=== PATIENT | male | born 1960 | race Two or more races ===

== ENCOUNTER 2016-06-09 03:28 | Emergency (ER) | payer MEDICAID ==
--- NOTE | 2016-06-09 03:49 | ED Physician Chart ---
Chief Complaint/HPI - Patient Information Date Seen:: 06/09/16 Time Seen:: 03:45 Chief Complaint:: Chronic low back pain for about 10 years. History of Present Illness:: Pt has h/o chronic pain syndrome with chronic low back pain. Pt has been followed at [facility] with Dr. Noland with next appointment on 06/11/16. Pt states that his low back pain has been worse over past 2 days, but pt decides not to contact his Pain Clinic. No recent back injury. No weakness or numbness. No urinary or fecal incontinence or retention. Pt states that he has been out of [place] for 3 days. Pt states that his last use of any analgesic was Motrin yesterday morning. Pt has not had any pain medication today. Pt is here for pain control. Allergies:: Allergies Allergy/AdvReac Type Severity Reaction Status Date / Time gabapentin Allergy Verified 06/09/16 03:45 ketorolac [From Toradol] Allergy Verified 06/09/16 03:45 morphine Allergy Verified 06/09/16 03:45 promethazine Allergy Verified 06/09/16 03:45 tramadol Allergy Verified 06/09/16 03:45 Vitals:: Vital Signs - 8 hr 06/09/16 03:30 Temp 97.2 F HR 82 RR 18 BP 130/82 O2 Sat % 97 Historian:: Patient Family MD/PCP:: Dr. Shannon. LMP:: N/A Review:: Nurse's Note Reviewed Review of Systems - Review of Systems General/Constitutional: No fever, No chills, No weight loss, No weakness, No diaphoresis, No edema, No loss of appetite Skin: No skin lesions, No rash, No bruising Head: No headache, No light-headedness Eyes: No loss of vision, No pain, No diplopia ENT: No earache, No nasal drainage, No sore throat, No tinnitus Neck: No neck pain, No swelling, No thyromegaly, No stiffness, No mass noted Cardio Vascular: No chest pain, No palpitations, No PND, No orthopnea, No edema Pulmonary: No SOB, No cough, No sputum, No wheezing GI: No nausea, No vomiting, No diarrhea, No pain, No melena, No hematochezia, No constipation, No hematemesis G/U: No dysuria, No frequency, No hematuria Musculoskeletal: Back pain (chronic, see HPI.) Endocrine: No polyuria, No polydipsia Psychiatric: Prior psych history, No depression, No anxiety, No suicidal ideation, No homicidal ideation, No auditory hallucination Hematopoietic: No bruising, No lymphadenopathy Allergic/Immuno: No urticaria, No angioedema Neurological: No syncope, No focal symptoms, No weakness, No paresthesia, No headache, No seizure, No dizziness, No confusion, No vertigo Past Medical History - Past Medical History Past Medical History: HTN, Dyslipidemia, PUD/GERD Family History: Diabetes Melitus (mother), HTN (mother) Social History: Smoker (occasional. Pt has been informed about health risks associated with chronic tobacco use and has been advised to quit. Pt has been encouraged to enroll in a smoking cessation program. Pt acknowledges understanding.), No Alcohol, No Drug Use, , Other (lives with his .) Employment:: on disability. Surgical History: Appendectomy (), Cholecystectomy () Psychiatricy History: Depression Medication: Reviewed Family Medical History - Family Member Mother History Unknown: Yes Ethnicity: Living Status: Hx Family Cancer: No Hx Family Coronary Artery Disease: No Hx Family Congestive Heart Failure: No Hx Family Hypertension: Yes Hx Family Stroke: No Hx Family Diabetes: Yes Hx Family Seizures: No Hx Family Dementia: Yes Hx Family AIDS: No Hx Family HIV: No Hx Family COPD: No Hx Family Hepatitis: No Hx Family Psychiatric Problems: No Hx Family Tuberculosis: No Father History Unknown: Yes Ethnicity: Living Status: Hx Family Cancer: Yes Hx Family Hypertension: Yes Physical Exam - Physical Examination General/Constitutional: Awake, Well-developed, well-nourished, Alert, No distress, GCS 15, Non-toxic appearing, Ambulatory Other Gen/Cons comments:: Breathes comfortably, speaks clearly, and interacts appropriately. Head: Atraumatic Eyes: Lids, conjuctiva normal, PERRL, EOMI Skin: Well hydrated, No lymphadenopathy Neck: Nontender, Full ROM w/o pain, No nuchal rigidity, No stridor Respiratory: Nl effort/Exclusion, Clear to Auscultation, No Wheeze/Rhonchi/Rales Cardio Vascular: RRR, No murmur, gallop, rubs, NL S1 S2 GI: No tenderness/rebounding/guarding, No organomegaly, No hernia, Normal BS's, Nondistended, No mass/bruits, No McBurney tenderness Other GI comments:: Abdomen is soft. : No CVA tenderness Extremities: No tenderness or effusion, Full ROM, normal strength in all extremities, No edema, Normal digits & nails Neuro/Psych: Alert/oriented (oriented x 3), DTR's symmetric, Normal sensory exam , Normal motor strength, Mood normal, No focal deficits Other Neuro/Psych comments:: Negative SLR's bilaterally. Other Misc comments:: Vague discomfort at mid lower lumbar region. No open wound, erythema, swelling or gross deformity. ED Septic Shock - . Is Septic Shock (SBP<90, OR Lactate>4 mmol\L) present?: No - <6hrs of presentation: Vital Signs: Vital Signs - 8 hr 06/09/16 03:30 Temp 97.2 F HR 82 RR 18 BP 130/82 O2 Sat % 97 Reassessment (Disposition) - Reassessment Reassessment:: 0510 Pt feels much better. Pt now can sit up and get up from bed comfortably. Pt requests to go home now and does not want further observation/management in hospital. Aftercare instructions given. Reassessment Condition:: Improved - Diagnosis Diagnosis:: Chronic pain syndrome with chronic low back pain, stable and improved. - Aftercare/Follow up Instructions Aftercare/Follow-Up Instructions:: Refer to Discharge Instructions Notes:: Back hygiene instructions given. May take Tylenol 500 mg tab one tab po q6h prn pain. Pt has been cautioned not to take other acetaminophen containing medications such as [place], etc. when taking Tylenol. F/U with Dr. Noland at [facility] and PCP Dr. Shannon in 1-2 days for recheck. Return to ER immediately if condition worsens or if any further questions/ problems. Medication Prescribed:: None - Patient Disposition Discharge/Transfer:: Home Time:: 05:20 Condition at Disposition:: Stable, Improved
== END 2016-06-09 05:21 | disposition home or self-care (01) ==
LOC: ER 03:28
DX: G89.4 Chronic pain syndrome (principal); M54.5 Low back pain; I10 Essential (primary) hypertension; E78.5 Hyperlipidemia, unspecified; F17.200 Nicotine dependence, unspecified, uncomplicated; Z88.5 Allergy status to narcotic agent; Z88.6 Allergy status to analgesic agent; Z88.8 Allergy status to other drugs, medicaments and biological substances
CPT/HCPCS: Z7502; Z7610

== ENCOUNTER 2017-04-04 14:56 | Emergency (ER) | payer MEDICAID, OTHER ==
[2017-04-04] MEDS ORDERED: HYDROmorphone 1 mg/mL 1mL Syr IM STA (15:07)
[2017-04-04] MEDS ORDERED: HYDROmorphone 1 mg/mL 1mL Syr ONE (15:15)
--- NOTE | 2017-04-04 15:51 | ED Physician Chart ---
ED Chief Complaint/HPI - Patient Information Date Seen:: 04/04/17 Time Seen:: 15:05 Chief Complaint:: Back Pain History of Present Illness:: onset x 7 days of intermittent, MS-type LBP; pt denies recent trauma; Hx of Chronic Back Pain and Sciatica; pt denies LOC, ALOC, AMS, H/As, neck pain, C/P, SOB, Abd/Flank Pain, A/N/V/D/C, fever, chills, paresthesias, weakness, dizziness , visual or gait changes, vertigo, or urinary s/s Allergies:: Allergies Allergy/AdvReac Type Severity Reaction Status Date / Time gabapentin Allergy Verified 06/09/16 03:45 ketorolac [From Toradol] Allergy Verified 06/09/16 03:45 morphine Allergy Verified 06/09/16 03:45 promethazine Allergy Verified 06/09/16 03:45 tramadol Allergy Verified 06/09/16 03:45 Vitals:: Vital Signs - 8 hr 04/04/17 04/04/17 15:06 15:39 Temp 99.1 F 99.0 F HR 85 86 RR 16 16 BP 136/79 154/85 O2 Sat % 98 98 Historian:: Patient Review:: Nurse's Note Reviewed ED Review of Systems - Review of Systems General/Constitutional: No fever, No chills, No weight loss, No weakness, No diaphoresis, No edema, No loss of appetite Skin: No skin lesions, No rash, No bruising Head: No headache, No light-headedness Eyes: No loss of vision, No pain, No diplopia ENT: No earache, No nasal drainage, No sore throat, No tinnitus Neck: No neck pain, No swelling, No thyromegaly, No stiffness, No mass noted Cardio Vascular: No chest pain, No palpitations, No PND, No orthopnea, No edema Pulmonary: No SOB, No cough, No sputum, No wheezing GI: No nausea, No vomiting, No diarrhea, No pain, No melena, No hematochezia, No constipation, No hematemesis G/U: No dysuria, No frequency, No hematuria Musculoskeletal: Bone or joint pain, Back pain, Muscle pain Endocrine: No polyuria, No polydipsia Psychiatric: No prior psych history, No depression, No anxiety, No suicidal ideation Hematopoietic: No bruising, No lymphadenopathy Allergic/Immuno: No urticaria, No angioedema Neurological: No syncope, No focal symptoms, No weakness, No paresthesia, No headache, No seizure, No dizziness, No confusion, No vertigo ED Past Medical History - Past Medical History Obtainable: Yes Past Medical History: Arthritis, Other (Sciatica; DDD) Family History: Cancer Social History: Smoker, Alcohol, No Drug Use, Single Surgical History: None Psychiatricy History: None Medication: Reviewed Family Medical History - Family Member Mother History Unknown: Yes Ethnicity: Living Status: Hx Family Cancer: No Hx Family Coronary Artery Disease: No Hx Family Congestive Heart Failure: No Hx Family Hypertension: Yes Hx Family Stroke: No Hx Family Diabetes: Yes Hx Family Seizures: No Hx Family Dementia: Yes Hx Family AIDS: No Hx Family HIV: No Hx Family COPD: No Hx Family Hepatitis: No Hx Family Psychiatric Problems: No Hx Family Tuberculosis: No Father History Unknown: Yes Ethnicity: Living Status: Hx Family Cancer: Yes Hx Family Hypertension: Yes ED Physical Exam - Physical Examination General/Constitutional: Awake, Well-developed, well-nourished, Alert, No distress, GCS 15, Non-toxic appearing, Ambulatory Head: Atraumatic Eyes: Lids, conjuctiva normal, PERRL, EOMI Skin: Nl inspection, No rash, No skin lesions, No ecchymosis, Well hydrated, No lymphadenopathy ENMT: External ears, nose nl, Nasal exam nl, Lips, teeth, gums nl Neck: Nontender, Full ROM w/o pain, No JVD, No nuchal rigidity, No bruit, No mass, No stridor Other Neck comments:: Supple; no cervical tenderness; no meningeal signs; no bruits Respiratory: Nl effort/Exclusion, Clear to Auscultation, No Wheeze/Rhonchi/Rales Cardio Vascular: RRR, No murmur, gallop, rubs, NL S1 S2, Carotid/Femoral/Distal pulses equal bilaterally GI: No tenderness/rebounding/guarding, No organomegaly, No hernia, Normal BS's, Nondistended, No mass/bruits, No McBurney tenderness, Rectum exam nl Other GI comments:: no pulsatile masses : No CVA tenderness Extremities: No tenderness or effusion, Full ROM, normal strength in all extremities, No edema, Normal digits & nails Neuro/Psych: Alert/oriented, DTR's symmetric, Normal sensory exam, Normal motor strength, Judgement/insight normal, Mood normal, Normal gait, No focal deficits Misc: Normal back, No paraspinal tenderness Other Misc comments:: Full Active ROMs of T-L-S Regions with mild paravertebral soft tissue tenderness ; no loss of ROMs; DTRs: 2+ bilaterally; Gait: WNL; good motor, tendon, and sensory functions; good NV functions; no cellulitis; no septic joints; no FBs ED Labs/Radiology/EKG Results - Radiology Results Comments:: X-rays: deferred by pt ED Septic Shock - . Is Septic Shock (SBP<90, OR Lactate>4 mmol\L) present?: No - <6hrs of presentation: Vital Signs: Vital Signs - 8 hr 04/04/17 04/04/17 15:06 15:39 Temp 99.1 F 99.0 F HR 85 86 RR 16 16 BP 136/79 154/85 O2 Sat % 98 98 ED Reassessment (Disposition) - Reassessment Reassessment:: pt is asymptomatic upon discharge Reassessment Condition:: Improved - Diagnosis Diagnosis:: Dx: Back Pain; Sciatica; T-L-S Strain; Sprains and Strains - Aftercare/Follow up Instructions Aftercare/Follow-Up Instructions:: Counseled pt regarding lab results/diagnosis & need follow up, Refer to Discharge Instructions, Counseled pt & family regarding lab results/diagnosis & need follow up - Patient Disposition Discharge/Transfer:: Home Condition at Disposition:: Stable, Improved (RTER prn if existing s/s reoccur and/or get worse and/or any other new s/s occur; ACIs given for all above Dx; Refer to Spinal Specialist/Neurologist/Orthopedist JUAN; F/U with PMD in one day or prn; RTER prn if concerned) ED Discharge Plan - Patient Disposition Instructions: Sciatica Additional Instructions: Pls follow up with PMD in 1-2 days.
== END 2017-04-04 15:55 | disposition home or self-care (01) ==
LOC: ER 14:56
DX: S33.9XXA Sprain of unspecified parts of lumbar spine and pelvis, initial encounter (principal); S23.9XXA Sprain of unspecified parts of thorax, initial encounter; X58.XXXA Exposure to other specified factors, initial encounter; Y93.9 Activity, unspecified; Y92.89 Other specified places as the place of occurrence of the external cause; Y99.8 Other external cause status
CPT/HCPCS: J1170; Z7502

== ENCOUNTER 2017-04-16 13:10 | Emergency (ER) | payer MEDICAID, OTHER ==
--- NOTE | 2017-04-16 13:46 | ED Physician Chart ---
ED Chief Complaint/HPI - Patient Information Date Seen:: 04/16/17 Time Seen:: 13:30 Chief Complaint:: back pain and leg pain History of Present Illness:: Patient was walking to the hospital because of dizziness, back pain and leg pain. He apparently got within about half a mile a Hospital and then called an ambulance. Patient states he was dizzy this morning which is not unusual for him because he has chronic vertigo. Patient vomited twice and had diarrhea once this morning. He ran out of his prescription for Percocet and Anderson 3 days ago; he has been taking these 2 medications for the last 3-[address] Keyur Shannon was the patient's physician but the patient moved to [place] but now has moved back to [place] and has appointment with Dr. Shannon for about May 08. Allergies:: Allergies Allergy/AdvReac Type Severity Reaction Status Date / Time gabapentin Allergy Verified 06/09/16 03:45 ketorolac [From Toradol] Allergy Verified 06/09/16 03:45 morphine Allergy Verified 06/09/16 03:45 promethazine Allergy Verified 06/09/16 03:45 tramadol Allergy Verified 06/09/16 03:45 Historian:: Patient, EMS Review:: Nurse's Note Reviewed ED Review of Systems - Review of Systems General/Constitutional: No fever, No chills Skin: No skin lesions Head: No headache Eyes: No loss of vision ENT: No earache Neck: No neck pain Cardio Vascular: No chest pain, No palpitations Pulmonary: No SOB, No cough GI: Nausea, Vomiting, Diarrhea Musculoskeletal: Bone or joint pain, Back pain, Muscle pain Endocrine: No polyuria, No polydipsia ED Past Medical History - Past Medical History Past Medical History: HTN, Dyslipidemia, Other (chronic vertigo; sciatica) Family History: Diabetes Melitus, HTN Social History: Smoker, Alcohol (6), Other (smokes one pack of cigarettes a days and drinks alcohol occasionally) Surgical History: Appendectomy, Cholecystectomy Psychiatricy History: Other (anxiety) Medication: Reviewed Family Medical History - Family Member Mother History Unknown: Yes Ethnicity: Living Status: Hx Family Cancer: No Hx Family Coronary Artery Disease: No Hx Family Congestive Heart Failure: No Hx Family Hypertension: Yes Hx Family Stroke: No Hx Family Diabetes: Yes Hx Family Seizures: No Hx Family Dementia: Yes Hx Family AIDS: No Hx Family HIV: No Hx Family COPD: No Hx Family Hepatitis: No Hx Family Psychiatric Problems: No Hx Family Tuberculosis: No Father History Unknown: Yes Ethnicity: Living Status: Hx Family Cancer: Yes Hx Family Hypertension: Yes ED Physical Exam - Physical Examination General/Constitutional: Awake, Well-developed, well-nourished, Alert, No distress Head: Atraumatic Eyes: Lids, conjuctiva normal, PERRL Skin: Nl inspection, No rash, No skin lesions, No ecchymosis ENMT: External ears, nose nl, Nasal exam nl Other ENMT comments:: 09/09 periodontal disease Neck: No nuchal rigidity Respiratory: Nl effort/Exclusion, Clear to Auscultation Cardio Vascular: RRR, No murmur, gallop, rubs, NL S1 S2 GI: No tenderness/rebounding/guarding, No organomegaly, No hernia, Nondistended , No mass/bruits : No CVA tenderness Extremities: No tenderness or effusion Neuro/Psych: No focal deficits Other Neuro/Psych comments:: Tremor left hand Misc: No paraspinal tenderness ED Labs/Radiology/EKG Results - Lab Results Results: Laboratory Results - last 24 hr 04/16/17 04/16/17 13:45 13:45 WBC 7.4 RBC 5.09 Hgb 14.3 Hct 42.4 MCV 83.3 MCH 28.1 MCHC Differential 33.7 RDW 16.9 Plt Count 169 MPV 8.8 Neutrophils % 69.0 Lymphocytes % 22.5 Monocytes % 5.6 Eosinophils % 2.9 Basophils % 0.0 Sodium 137 Potassium 3.6 Chloride 106 Carbon Dioxide 27.6 Anion Gap 7.0 BUN 19 Creatinine 1.0 Est GFR ( Amer) > 60.0 Est GFR (Non-Af Amer) > 60.0 BUN/Creatinine Ratio 19.0 Glucose 128 H Calcium 8.7 Magnesium 2.0 Total Bilirubin 0.3 AST 12 L ALT 9 Alkaline Phosphatase 75 Total Protein 6.5 Albumin 3.9 L Globulin 2.6 Albumin/Globulin Ratio 1.5 ED Assessment - Assessment General Assessment: talked to Dr. Keyur Shannon who said he had not prescribed Percocet for the patient in the past. He suggested prescribing a few norco. Patient may be having some narcotic withdrawal symptoms. ED Septic Shock - . Is Septic Shock (SBP<90, OR Lactate>4 mmol\L) present?: No ED Reassessment (Disposition) - Reassessment Reassessment Condition:: Improved - Diagnosis Diagnosis:: Musculoskeletal back pain; gastroenteritis; anxiety; medication withdrawal - Aftercare/Follow up Instructions Aftercare/Follow-Up Instructions:: Refer to Discharge Instructions - Patient Disposition Discharge/Transfer:: Home Condition at Disposition:: Stable, Improved
[2017-04-16 13:54] LABS: % EOSINOPHILS 2.9 % (0.0-5.0); % LYMPHOCYTES 22.5 % (20.0-50.0); % MONOCYTES 5.6 % (2.0-10.0); EOSINOPHILE ABSOLUTE 0.2 Th/cmm (0.1-0.4); HEMATOCRIT 42.4 % (41.0-60); HEMOGLOBIN 14.3 gm/dL (12-16); LYMPHOCYTE ABSOLUTE 1.7 Th/cmm (1.5-3.0); MEAN CELL VOLUME 83.3 fl (80-99); MEAN CORPUSCULAR HEMOGLOBIN 28.1 pg (26.0-30.0); MEAN CORPUSCULAR HGB CONC 33.7 pg (28.0-36.0); MEAN PLATELET VOLUME 8.8 fl; MONOCYTE ABSOLUTE 0.4 Th/cmm (0.3-1.0); NEUTROPHILE ABSOLUTE 5.1 Th/cmm (1.8-8.0); PLATELET COUNT 169 Th/cmm (150-400); RED BLOOD COUNT 5.09 Mil/cmm (4.30-5.70); RED CELL DISTRIBUTION WIDTH 16.9 % (11.5-20.0); WHITE BLOOD COUNT 7.4 Th/cmm (4.8-10.8)
[2017-04-16 14:11] LABS: ALB/GLOB RATIO 1.5 (1.0-1.8); ALBUMIN 3.9 gm/dL (4.2-5.5); ALKALINE PHOSPHATASE 75 U/L (34-104); BILIRUBIN,TOTAL 0.3 mg/dL (0.3-1.0); BUN - UREA NITROGEN 19 mg/dL (7-25); CALCIUM SERUM 8.7 mg/dL (8.6-10.3); CARBON DIOXIDE 27.6 mEq/L (21.0-31.0); CHLORIDE 106 mEq/L (98-107); GFR AFRICAN-AMERICAN > 60.0 ml/min (>90); GFR NON AFRICAN-AMERICAN > 60.0 ml/min; GLUCOSE 128 mg/dL (70-105); POTASSIUM SERUM 3.6 mEq/L (3.5-5.1); SGOT 12 U/L (13-39); SGPT/ALT 9 U/L (7-52); SODIUM SERUM 137 mEq/L (136-145); TOTAL PROTEIN,SERUM 6.5 gm/dL (6.0-8.3)
== END 2017-04-16 15:50 | disposition home or self-care (01) ==
LOC: ER 13:10
DX: M54.9 Dorsalgia, unspecified (principal); K52.9 Noninfective gastroenteritis and colitis, unspecified; F41.9 Anxiety disorder, unspecified; I10 Essential (primary) hypertension; E78.5 Hyperlipidemia, unspecified; F17.210 Nicotine dependence, cigarettes, uncomplicated; Z90.49 Acquired absence of other specified parts of digestive tract; Z88.5 Allergy status to narcotic agent; Z88.8 Allergy status to other drugs, medicaments and biological substances
CPT/HCPCS: 36415-UA; 80053-TC; 83735-TC; 85025-TC; Z7502

== ENCOUNTER 2017-04-18 10:32 | Emergency (ER) | payer MEDICAID ==
--- NOTE | 2017-04-18 11:31 | ED Physician Chart ---
ED Chief Complaint/HPI - Patient Information Date Seen:: 04/18/17 Time Seen:: 11:31 Chief Complaint:: ACUTE EXACERBATION OF CHRONIC LOW BACK PAIN History of Present Illness:: THIS 56 YEAR OLD MALE HAS BEEN HAVING INTERMENT EPISODES OF SEVERE LOW BACK PAIN FOR PAST 5 YEARS. HAD AN MRI 1 YEAR AGO WITH NO ACUTE ABNORMALITIES FOUND. PAIN CAME ON 3 DAYS AGO WHEN HE AWOKE IN THE AM. PAIN IS RATED 10/ 10 BY THIS PATIENT AND IS MADE WORSE BY WALKING. NO AVIATING FACTORS. PAIN RADIATES FROM THE MID TO LOW BACK DOWN INTO THE RT LOWER EXTREMITY ALL THE WAY DOWN TO THE GREAT TOE. THIS IS THE PATIENTS TYPICAL PAIN. PAIN IS ACCOMPANIED BY NAUSEA AND VERTIGO WHICH USUALLY ACCOMPANIES THE PAIN. NO VOMITING OR ABDOMINAL PAIN. NO FEVER, CHILLS OR DIAPHORESIS. NEAR SYNCOPAL EPISODE DUE TO THE PAIN THIS AM AND PT CALLED 911 TO BRING HIM TO THE ED. HE DENIES ANY UINARY OR BOWEL INCONTINENCE. NO URINARY RETENTION. Allergies:: Allergies Allergy/AdvReac Type Severity Reaction Status Date / Time aspirin Allergy Verified 04/16/17 13:43 gabapentin Allergy Verified 06/09/16 03:45 ketorolac [From Toradol] Allergy Verified 06/09/16 03:45 morphine Allergy Verified 06/09/16 03:45 promethazine Allergy Verified 06/09/16 03:45 tramadol Allergy Verified 06/09/16 03:45 Vitals:: Vital Signs - 8 hr 04/18/17 10:45 Temp 99.2 F HR 96 RR 15 BP 109/62 O2 Sat % 98 ED Review of Systems - Review of Systems General/Constitutional: No fever, No chills, No weakness, No diaphoresis, No edema, No loss of appetite Skin: No skin lesions, No rash, No bruising Head: No headache, No light-headedness Eyes: No loss of vision, No pain, No diplopia ENT: No earache, No sore throat, No tinnitus Neck: No neck pain, No stiffness, No mass noted Cardio Vascular: No chest pain, No orthopnea, No edema Pulmonary: No SOB, No cough, No wheezing GI: Nausea, No vomiting, No diarrhea, No pain, No hematemesis, Other (POSITIVE FLATUS) G/U: No dysuria, No frequency, No hematuria Musculoskeletal: Back pain, No muscle pain Psychiatric: Prior psych history, Depression, Anxiety, No suicidal ideation Hematopoietic: No bruising, No lymphadenopathy Allergic/Immuno: No urticaria, No angioedema Neurological: No weakness, No paresthesia, No headache, No seizure, No confusion , Vertigo Other: NEAR SYNCOPE WITHOUT LOC. ED Past Medical History - Past Medical History Past Medical History: HTN, Dyslipidemia, Other (denies diabetes.) Social History: Smoker (smokes 1 pack per day of cigarettes. Occasional alcohol. Denies illicit drug use.), Single, Lives Alone Employment:: Not currently employed. Patient has a history of cholecystectomy and appendectomy. Surgical History: Appendectomy, Cholecystectomy Psychiatricy History: Other (anxiety.) Medication: Reviewed Family Medical History - Family Member Mother History Unknown: Yes Ethnicity: Living Status: Hx Family Cancer: No Hx Family Coronary Artery Disease: No Hx Family Congestive Heart Failure: No Hx Family Hypertension: Yes Hx Family Stroke: No Hx Family Diabetes: Yes Hx Family Seizures: No Hx Family Dementia: Yes Hx Family AIDS: No Hx Family HIV: No Hx Family COPD: No Hx Family Hepatitis: No Hx Family Psychiatric Problems: No Hx Family Tuberculosis: No Father History Unknown: Yes Ethnicity: Living Status: Hx Family Cancer: Yes Hx Family Hypertension: Yes ED Physical Exam - Physical Examination General/Constitutional: Awake, Well-developed, well-nourished, Alert, No distress, Non-toxic appearing, Ambulatory Head: Atraumatic Eyes: Lids, conjuctiva normal, PERRL, EOMI Other Eyes comments:: No nystagmus. Sclerae anicteric. Skin: No rash, No skin lesions, No ecchymosis, No lymphadenopathy ENMT: External ears, nose nl, Nasal exam nl, Oropharynx nl, Tonsils nl Other ENMT comments:: Patient with multiple broken teeth and dental caries. Neck: Nontender, No JVD, No nuchal rigidity, No mass Respiratory: Nl effort/Exclusion, Clear to Auscultation, No Wheeze/Rhonchi/Rales Cardio Vascular: RRR, No murmur, gallop, rubs, NL S1 S2 Other Cardio Vascular comments:: Adequate pulses all 4 extremities. GI: No tenderness/rebounding/guarding, No organomegaly, No hernia, Normal BS's, Nondistended, No mass/bruits, No McBurney tenderness Other GI comments:: Rectal exam deferred at my discretion. : No CVA tenderness, NL external genitalia Extremities: No tenderness or effusion, Full ROM, normal strength in all extremities, No edema Other Extremities comments:: Adequate pulses all 4 extremities. Other Misc comments:: The patient has diffuse tenderness of the lower thoracic spine and the lumbar region. Minimal paraspinal muscle spasm or tenderness. No CVA tenderness. ED Labs/Radiology/EKG Results - Lab Results Results: No laboratory or radiographic studies were indicated. ED Assessment - Assessment General Assessment: CASE SUMMARY: This 56-year-old male with a five-year history of low back pain presents with a 3 day exacerbation of his symptoms. He denies any fever or chills and has had no dysuria or hematuria. He has experienced no new weakness or numbness in his right lower extremity. He denies incontinence or urinary retention. Laboratory studies were done 2 days ago and were unremarkable. Patient was treated with Percocet 5/325 in the emergency department with good relief of symptoms. He was given a prescription for 5 Percocet 5/325 and advised to take one every 6-8 hours as needed for severe pain. Patient was further advised to follow-up with Dr. Shannon, his primary care physician. He was further advised to return to the emergency department if he had any significant worsening of his symptoms, or new onset of any numbness or weakness in lower extremities. MDM DDX LOW BACK PAIN: NOT AAA BASED ON PATIENTS HISTORY AND PHYSICAL EXAM. NOT AAA BASED ON PATIENTS HISTORY AND PHYSICAL EXAM. NOT epidural abscess AAA BASED ON PATIENTS HISTORY AND PHYSICAL EXAM. NOT vertebral fracture BASED ON PATIENTS HISTORY AND PHYSICAL EXAM. NOT RENAL COLIC BASED ON PATIENTS HISTORY AND PHYSICAL EXAM. NOT UTI BASED ON PATIENTS HISTORY AND PHYSICAL EXAM. ED Septic Shock - . Is Septic Shock (SBP<90, OR Lactate>4 mmol\L) present?: No - <6hrs of presentation: Vital Signs: Vital Signs - 8 hr 04/18/17 10:45 Temp 99.2 F HR 96 RR 15 BP 109/62 O2 Sat % 98 ED Reassessment (Disposition) - Reassessment Reassessment Condition:: Improved - Diagnosis Diagnosis:: ACUTE EXACERBATION OF CHRONIC LOW BACK PAIN. Follow-up with Dr. shultz as scheduled for May 08. Return to the emergency department if your symptoms worsen or for any new weakness, numbness, or incontinence. Patient was discharged with a prescription for Percocet 5/325, number 5 to be taken one every 6-8 hours as needed for severe pain. The patient was given the usual precautions against mixing it with alcohol and taking it within [address] or activities requiring alertness. Patient completely ambulatory at time of discharge. - Aftercare/Follow up Instructions Aftercare/Follow-Up Instructions:: Counseled pt & family regarding lab results/ diagnosis & need follow up - Patient Disposition Discharge/Transfer:: Home ED Discharge Plan - Patient Disposition Prescriptions: Oxycodone HCl/Acetaminophen [Percocet 325 mg-5 mg*] 1 each PO QID #5 tablet Instructions: Back Pain, Adult
[2017-04-18] MEDS ORDERED: APAP/Oxycodone 5/325mg Oral Tab PO STA ×2 (11:56)
[2017-04-18] MEDS ORDERED: APAP/Oxycodone 5/325mg Oral Tab ONE ×2 (12:01)
--- NOTE | 2017-04-19 23:44 | ER Physician Documentation ---
DATE OF SERVICE: 04/18/2017 EMERGENCY ROOM EVALUATION AND TREATMENT HISTORY AND PHYSICAL The patient was just here yesterday, 04/18/2017. The patient came to the hospital because of acute exacerbation of chronic lower back pain. He said he walked from home down here. The patient says that he came from his home here yesterday also. He came here. He gave the history to Dr. Stockton saying that he has had pain radiating into the back, but he can walk. He seems to be a drug seeker. He got [address] Stockton. The patient had lab work, MRI, etc., workup done in the past and everything was found to be negative. The patient does not have any urinary or bowel or bladder incontinence. No other complaints. HISTORY OF PRESENT ILLNESS EYES: Eyes; no history of double vision, blurring or blindness. Back: The patient has low back pain and generalized aches and pains. He seems to be faking, it does not look like genuine pain. The patient is allergic to all these medications aspirin, gabapentin, Toradol, morphine, promethazine, tramadol. VITAL SIGNS: Temperature was 97.9, pulse 101, respirations 17, blood pressure 136/91, oxygen saturation 97%, height of 5 feet 11 inches, and weight 200. REVIEW OF SYSTEMS: Essentially benign and negative. No diabetes, no hypertension, no gout. Chronic back pain, history of hypertension, history of hypercholesterolemia, and history of anxiety. PAST SURGICAL HISTORY: Include gallbladder, appendix history. FAMILY HISTORY: Mother had a history of hypertension. According to him, he wants Grasston, Grasston works better. He got 5 Percocet yesterday. ALLERGIES: Aspirin, and all those medications that I mentioned. There is no history of any heart disease, rheumatic fever, or valvular heart disease. No history of COPD, emphysema, bronchitis. The patient's back examination showed minimal if any tenderness in the low back. There is no guarding, no rigidity. Straight leg raising test is fairly decent at least to about 45 degrees. Reflexes are normal. Plantars are downgoing. CHEST: Clear. No rales, rhonchi, or bronchial breathing. HEART: Reveals normal heart sounds, soft fourth heart sound, second heart sound physiologically split. Third heart sound is absent. CLINICAL DECISION MAKING: The patient came in with back pain and generalized aches and pains and most likely is a drug seeker. He has been investigated before, yesterday he got [address] Stockton, so he came back again today. I do not think there is anything acutely going on except that he has this episode of back pain that he is faking. He needs to take Aleve tablet 2 tablets twice a day over the counter. I explained to the patient and the patient should take that and go and see his own physician. Other diagnoses; the patient has a history of hypertension, but he is not taking any medications. The patient has history of anxiety disorder. He is not taking any medications. Code status: Full. The patient was counseled and family regarding the lab results and other things that need to be done by his own primary physician and he was advised to follow up with Dr. Massey as he is scheduled for May. Return to Emergency Room for any other further new weakness, numbness, incontinence of the urine, and no prescription is given. He has ____ [id number] medication. He takes alcohol along with Percocet every 8 hours. He can walk. He is advised of the usual precautions against mixing narcotics and other medications, should he find from any other. There are no other family members, hence he cannot be counseled, but the patient has been counseled yesterday by Dr. Stockton, who was here and the patient needs to be followed up by his own physician. JOB# [id number]
== END 2017-04-18 12:24 | disposition home or self-care (01) ==
LOC: ER 10:32
DX: M54.5 Low back pain (principal); G89.29 Other chronic pain; I10 Essential (primary) hypertension; E78.5 Hyperlipidemia, unspecified; F17.210 Nicotine dependence, cigarettes, uncomplicated; Z90.49 Acquired absence of other specified parts of digestive tract; Z88.5 Allergy status to narcotic agent; Z88.8 Allergy status to other drugs, medicaments and biological substances
CPT/HCPCS: Z7502

== ENCOUNTER 2017-04-19 18:39 | Emergency (ER) | payer MEDICAID | END 2017-04-19 19:15 | disposition home or self-care (01) | LOC: ER 18:39 | DX: M54.5 Low back pain (principal) | CPT/HCPCS: Z7502 ==

== ENCOUNTER 2017-04-20 09:49 | Emergency (ER) | payer MEDICAID ==
[2017-04-20] MEDS ORDERED: APAP/Codeine 300 mg/30 mg Tab PO STA (10:06)
[2017-04-20] MEDS ORDERED: APAP/Codeine 300 mg/30 mg Tab ONE (10:12)
--- NOTE | 2017-04-20 10:15 | ED Physician Chart ---
ED Chief Complaint/HPI - Patient Information Date Seen:: 04/20/17 Time Seen:: 10:00 Chief Complaint:: Back Pain History of Present Illness:: onset x 5 days of intermittent MS type LBP; pt has Hx of chronic back pain; pt denies trauma, H/As, neck pain, C/P, SOB, Abd. Pain, Flank Pain, A/N/V/D/C, fever, chills, paresthesias, weakness, dizziness, or gait changes; no urinary s/ s Allergies:: Allergies Allergy/AdvReac Type Severity Reaction Status Date / Time aspirin Allergy Verified 04/16/17 13:43 gabapentin Allergy Verified 06/09/16 03:45 ketorolac [From Toradol] Allergy Verified 06/09/16 03:45 morphine Allergy Verified 06/09/16 03:45 promethazine Allergy Verified 06/09/16 03:45 tramadol Allergy Verified 06/09/16 03:45 Vitals:: Vital Signs - 8 hr 04/20/17 09:59 Temp 98.9 F HR 110 RR 17 BP 162/98 O2 Sat % 98 Historian:: Patient Review:: Nurse's Note Reviewed, Old Chart Reviewed ED Review of Systems - Review of Systems General/Constitutional: No fever, No chills, No weight loss, No weakness, No diaphoresis, No edema, No loss of appetite Skin: No skin lesions, No rash, No bruising Head: No headache, No light-headedness Eyes: No loss of vision, No pain, No diplopia ENT: No earache, No nasal drainage, No sore throat, No tinnitus Neck: No neck pain, No swelling, No thyromegaly, No stiffness, No mass noted Cardio Vascular: No chest pain, No palpitations, No PND, No orthopnea, No edema Pulmonary: No SOB, No cough, No sputum, No wheezing GI: No nausea, No vomiting, No diarrhea, No pain, No melena, No hematochezia, No constipation, No hematemesis G/U: No dysuria, No frequency, No hematuria Musculoskeletal: Bone or joint pain, Back pain, Muscle pain Endocrine: No polyuria, No polydipsia Psychiatric: No prior psych history, No depression, No anxiety, No suicidal ideation Hematopoietic: No bruising, No lymphadenopathy Allergic/Immuno: No urticaria, No angioedema Neurological: No syncope, No focal symptoms, No weakness, No paresthesia, No headache, No seizure, Dizziness, No confusion, Vertigo ED Past Medical History - Past Medical History Obtainable: Yes Past Medical History: HTN Family History: HTN Social History: Smoker, No Alcohol, No Drug Use, Single Surgical History: None Psychiatricy History: None Medication: Reviewed Family Medical History - Family Member Mother History Unknown: Yes Ethnicity: Living Status: Hx Family Cancer: No Hx Family Coronary Artery Disease: No Hx Family Congestive Heart Failure: No Hx Family Hypertension: Yes Hx Family Stroke: No Hx Family Diabetes: Yes Hx Family Seizures: No Hx Family Dementia: Yes Hx Family AIDS: No Hx Family HIV: No Hx Family COPD: No Hx Family Hepatitis: No Hx Family Psychiatric Problems: No Hx Family Tuberculosis: No Father History Unknown: Yes Ethnicity: Living Status: Hx Family Cancer: Yes Hx Family Hypertension: Yes ED Physical Exam - Physical Examination General/Constitutional: Awake, Well-developed, well-nourished, Alert, No distress, GCS 15, Non-toxic appearing, Ambulatory Head: Atraumatic Eyes: Lids, conjuctiva normal, PERRL, EOMI Skin: Nl inspection, No rash, No skin lesions, No ecchymosis, Well hydrated, No lymphadenopathy ENMT: External ears, nose nl, TM canals nl, Nasal exam nl, Lips, teeth, gums nl , Oropharynx nl, Tonsils nl Neck: Nontender, Full ROM w/o pain, No JVD, No nuchal rigidity, No bruit, No mass, No stridor Respiratory: Nl effort/Exclusion, Clear to Auscultation, No Wheeze/Rhonchi/Rales Cardio Vascular: RRR, No murmur, gallop, rubs, NL S1 S2, Carotid/Femoral/Distal pulses equal bilaterally GI: No tenderness/rebounding/guarding, No organomegaly, No hernia, Normal BS's, Nondistended, No mass/bruits, No McBurney tenderness : No CVA tenderness Extremities: No tenderness or effusion, Full ROM, normal strength in all extremities, No edema, Normal digits & nails Other Extremities comments:: L-S Tenderness with no loss of ROMs; DTRs: 2 + bilaterally; Gait: wnl; good motor, tendon, and sensory functions; good NV functions; Neuro: no focal signs Neuro/Psych: Alert/oriented, DTR's symmetric, Normal sensory exam, Normal motor strength, Judgement/insight normal, Mood normal, Normal gait, No focal deficits Misc: Normal back, No paraspinal tenderness ED Septic Shock - . Is Septic Shock (SBP<90, OR Lactate>4 mmol\L) present?: No - <6hrs of presentation: Vital Signs: Vital Signs - 8 hr 04/20/17 09:59 Temp 98.9 F HR 110 RR 17 BP 162/98 O2 Sat % 98 ED Reassessment (Disposition) - Reassessment Reassessment:: pt is asymptomatic upon discharge Reassessment Condition:: Improved - Diagnosis Diagnosis:: Lumbar-Sacral Strain; Sprains and Strains; DDD; Back Pain - Aftercare/Follow up Instructions Aftercare/Follow-Up Instructions:: Counseled pt regarding lab results/diagnosis & need follow up, Refer to Discharge Instructions, Counseled pt & family regarding lab results/diagnosis & need follow up - Patient Disposition Discharge/Transfer:: Home Condition at Disposition:: Stable, Improved (RTER prn if existing s/s reoccur and/or get worse and/or any other new s/s occur; ACIs given for all above Dx; Refer to Spinal Specialist/Orthopedist JUAN; F/U with PMD in one day or prn; RTER prn if concerned)
== END 2017-04-20 10:31 | disposition home or self-care (01) ==
LOC: ER 09:49
DX: S33.5XXA Sprain of ligaments of lumbar spine, initial encounter (principal); M51.16 Intervertebral disc disorders with radiculopathy, lumbar region; I10 Essential (primary) hypertension; F17.200 Nicotine dependence, unspecified, uncomplicated; X58.XXXA Exposure to other specified factors, initial encounter; Y93.89 Activity, other specified; Y92.89 Other specified places as the place of occurrence of the external cause; Y99.8 Other external cause status
CPT/HCPCS: Z7610

== ENCOUNTER 2017-04-24 18:39 | Emergency (ER) | payer MEDICAID ==
--- NOTE | 2017-04-24 22:34 | ED Physician Chart ---
ED Chief Complaint/HPI - Patient Information Allergies:: Allergies Allergy/AdvReac Type Severity Reaction Status Date / Time aspirin Allergy Verified 04/24/17 18:59 gabapentin Allergy Verified 04/24/17 18:59 ketorolac [From Toradol] Allergy Verified 04/24/17 18:59 morphine Allergy Verified 04/24/17 18:59 promethazine Allergy Verified 04/24/17 18:59 tramadol Allergy Verified 04/24/17 18:59 Vitals:: Vital Signs - 8 hr 04/24/17 04/24/17 18:53 20:17 Temp 97.8 F 96.8 F HR 67 67 RR 16 16 BP 85/54 93/54 O2 Sat % 97 100 Family Medical History - Family Member Mother History Unknown: Yes Ethnicity: Unknown Living Status: Hx Family Cancer: No Hx Family Coronary Artery Disease: No Hx Family Congestive Heart Failure: No Hx Family Hypertension: Yes Hx Family Stroke: No Hx Family Diabetes: No Hx Family Seizures: No Hx Family Dementia: No Hx Family AIDS: No Hx Family HIV: No Hx Family COPD: No Hx Family Hepatitis: No Hx Family Psychiatric Problems: Yes Hx Family Tuberculosis: No Father History Unknown: Yes Ethnicity: Living Status: Hx Family Cancer: No Hx Family Coronary Artery Disease: No Hx Family Congestive Heart Failure: No Hx Family Hypertension: Yes Hx Family Stroke: No Hx Family Diabetes: No Hx Family Seizures: No Hx Family Dementia: No Hx Family AIDS: No Hx Family HIV: No Hx Family COPD: No Hx Family Hepatitis: Yes Hx Family Psychiatric Problems: No Hx Family Tuberculosis: No ED Assessment - Assessment General Assessment: minor slurred speech pt told needs to have accompiment to go home ran out er police picked up patient returned him to er stable police will take home ED Septic Shock - . Is Septic Shock (SBP<90, OR Lactate>4 mmol\L) present?: No - <6hrs of presentation: Vital Signs: Vital Signs - 8 hr 04/24/17 04/24/17 18:53 20:17 Temp 97.8 F 96.8 F HR 67 67 RR 16 16 BP 85/54 93/54 O2 Sat % 97 100 ED Reassessment (Disposition) - Reassessment Reassessment Condition:: Improved - Diagnosis Diagnosis:: intoxication with alcohol smell sociopathic personality self iv removal and involuntary elloped er stop drinkink seek help tizandine use - Aftercare/Follow up Instructions Aftercare/Follow-Up Instructions:: Counseled pt regarding lab results/diagnosis & need follow up - Patient Disposition Discharge/Transfer:: police accompany ED Discharge Plan - Patient Disposition Instructions: Alcohol Intoxication, [id number] Additional Instructions: FOLLOW UP WITH PRIMARY MEDICAL DOCTOR ON THURSDAY, PLENTY OF FLUIDS AND REST.ACTIVITY TOLERATED. ABSTAIN FROM ALCOHOL USAGE.
== END 2017-04-24 22:28 | disposition home or self-care (01) ==
LOC: ER 18:39
DX: F10.129 Alcohol abuse with intoxication, unspecified (principal)
CPT/HCPCS: Z7502

== ENCOUNTER 2017-04-29 12:32 | Emergency (ER) | payer MEDICAID ==
--- NOTE | 2017-04-29 13:49 | ED Physician Chart ---
ED Chief Complaint/HPI - Patient Information Date Seen:: 04/29/17 Time Seen:: 12:40 Chief Complaint:: Anxiety History of Present Illness:: onset x 2 days of anxiousness after running out of prescibed anxiety medication ; pt has no other s/s; pt denies trauma, H/As, neck pain, C/P, SOB, Abd. Pain, A /N/V/D/C, fever, chills, or urinary s/s Allergies:: Allergies Allergy/AdvReac Type Severity Reaction Status Date / Time aspirin Allergy Verified 04/24/17 18:59 gabapentin Allergy Verified 04/24/17 18:59 ketorolac [From Toradol] Allergy Verified 04/24/17 18:59 morphine Allergy Verified 04/24/17 18:59 promethazine Allergy Verified 04/24/17 18:59 tramadol Allergy Verified 04/24/17 18:59 Vitals:: Vital Signs - 8 hr 04/29/17 04/29/17 12:42 13:15 Temp 98.5 F 98.2 F HR 75 85 RR 16 15 BP 140/76 135/70 O2 Sat % 98 97 Historian:: Patient Review:: Nurse's Note Reviewed ED Review of Systems - Review of Systems General/Constitutional: No fever, No chills, No weight loss, No weakness, No diaphoresis, No edema, No loss of appetite Skin: No skin lesions, No rash, No bruising Head: No headache, No light-headedness Eyes: No loss of vision, No pain, No diplopia ENT: No earache, No nasal drainage, No sore throat, No tinnitus Neck: No neck pain, No swelling, No thyromegaly, No stiffness, No mass noted Cardio Vascular: No chest pain, No palpitations, No PND, No orthopnea, No edema Pulmonary: No SOB, No cough, No sputum, No wheezing GI: No nausea, No vomiting, No diarrhea, No pain, No melena, No hematochezia, No constipation, No hematemesis G/U: No dysuria, No frequency, No hematuria Musculoskeletal: No bone or joint pain, No back pain, No muscle pain Endocrine: No polyuria, No polydipsia Psychiatric: Prior psych history, No depression, Anxiety, No suicidal ideation, No homicidal ideation, No auditory hallucination, No visual hallucination Hematopoietic: No bruising, No lymphadenopathy Allergic/Immuno: No urticaria, No angioedema Neurological: No syncope, No focal symptoms, No weakness, No paresthesia, No headache, No seizure, No dizziness, No confusion, No vertigo ED Past Medical History - Past Medical History Obtainable: Yes Past Medical History: Other (Chronic Back Pain) Family History: HTN Social History: Non Smoker, No Alcohol, Illicit Drug Use, Single Surgical History: None Psychiatricy History: Other (Anxiety) Medication: Reviewed Family Medical History - Family Member Mother History Unknown: Yes Ethnicity: Living Status: Hx Family Cancer: No Hx Family Coronary Artery Disease: No Hx Family Congestive Heart Failure: No Hx Family Hypertension: Yes Hx Family Stroke: No Hx Family Diabetes: No Hx Family Seizures: No Hx Family Dementia: No Hx Family AIDS: No Hx Family HIV: No Hx Family COPD: No Hx Family Hepatitis: No Hx Family Psychiatric Problems: Yes Hx Family Tuberculosis: No Father History Unknown: Yes Ethnicity: Living Status: Hx Family Cancer: No Hx Family Coronary Artery Disease: No Hx Family Congestive Heart Failure: No Hx Family Hypertension: Yes Hx Family Stroke: No Hx Family Diabetes: No Hx Family Seizures: No Hx Family Dementia: No Hx Family AIDS: No Hx Family HIV: No Hx Family COPD: No Hx Family Hepatitis: Yes Hx Family Psychiatric Problems: No Hx Family Tuberculosis: No ED Physical Exam - Physical Examination General/Constitutional: Awake, Well-developed, well-nourished, Alert, No distress, GCS 15, Non-toxic appearing, Ambulatory Head: Atraumatic Eyes: Lids, conjuctiva normal, PERRL, EOMI Skin: Nl inspection, No rash, No skin lesions, No ecchymosis, Well hydrated, No lymphadenopathy ENMT: External ears, nose nl, TM canals nl, Nasal exam nl, Lips, teeth, gums nl , Oropharynx nl, Tonsils nl Neck: Nontender, Full ROM w/o pain, No JVD, No nuchal rigidity, No bruit, No mass, No stridor Other Neck comments:: Supple; no meningeal signs; no cervical tenderness; no bruits Respiratory: Nl effort/Exclusion, Clear to Auscultation, No Wheeze/Rhonchi/Rales Cardio Vascular: RRR, No murmur, gallop, rubs, NL S1 S2, Carotid/Femoral/Distal pulses equal bilaterally GI: No tenderness/rebounding/guarding, No organomegaly, No hernia, Normal BS's, Nondistended, No mass/bruits, No McBurney tenderness : No CVA tenderness Extremities: No tenderness or effusion, Full ROM, normal strength in all extremities, No edema, Normal digits & nails Neuro/Psych: Alert/oriented, DTR's symmetric, Normal sensory exam, Normal motor strength, Judgement/insight normal, Mood normal, Normal gait, No focal deficits Other Neuro/Psych comments:: no focal signs; no SIs Misc: Normal back, No paraspinal tenderness ED Septic Shock - . Is Septic Shock (SBP<90, OR Lactate>4 mmol\L) present?: No - <6hrs of presentation: Vital Signs: Vital Signs - 8 hr 04/29/17 04/29/17 12:42 13:15 Temp 98.5 F 98.2 F HR 75 85 RR 16 15 BP 140/76 135/70 O2 Sat % 98 97 ED Reassessment (Disposition) - Reassessment Reassessment:: pt is asymptomatic upon discharge Reassessment Condition:: Improved - Diagnosis Diagnosis:: Anxiety Reaction - Aftercare/Follow up Instructions Aftercare/Follow-Up Instructions:: Counseled pt regarding lab results/diagnosis & need follow up, Refer to Discharge Instructions, Counseled pt & family regarding lab results/diagnosis & need follow up Medication Prescribed:: Rx: Ativan 0.5mg po bid prn anxiety (#7) - Patient Disposition Discharge/Transfer:: Home Condition at Disposition:: Stable, Improved (RTER prn if existing s/s reoccur and/or get worse and/or any other new s/s occur; ACIs given for all Dx; Refer to Psychiatrist/Radiologic Technology Instructor JUAN; F/U with PMD in one day or prn; RTER prn if concerned) ED Discharge Plan - Patient Disposition Admit/Discharge/Transfer: PT DISCHARGED HOME Condition at Disposition: Stable Prescriptions: Lorazepam [Ativan] 0.5 mg PO BID PRN #7 tab PRN Reason: Anxiety Instructions: Anxiety and Panic Attacks
== END 2017-04-29 13:26 | disposition home or self-care (01) ==
LOC: ER 12:32
DX: F41.9 Anxiety disorder, unspecified (principal); Z88.5 Allergy status to narcotic agent; Z88.8 Allergy status to other drugs, medicaments and biological substances
CPT/HCPCS: Z7502

== ENCOUNTER 2017-06-11 18:21 | Emergency (ER) | payer MEDICAID ==
--- NOTE | 2017-06-11 18:42 | ED Physician Chart ---
ED Chief Complaint/HPI - Patient Information Date Seen:: 06/11/17 Time Seen:: 18:30 Chief Complaint:: left hip pain History of Present Illness:: While walking patient developed left heel pain and felt a pop at the site. One month ago patient had left heel pain while walking. Allergies:: Allergies Allergy/AdvReac Type Severity Reaction Status Date / Time aspirin Allergy Verified 04/24/17 18:59 gabapentin Allergy Verified 04/24/17 18:59 ketorolac [From Toradol] Allergy Verified 04/24/17 18:59 morphine Allergy Verified 04/24/17 18:59 promethazine Allergy Verified 04/24/17 18:59 tramadol Allergy Verified 04/24/17 18:59 Historian:: Patient Review:: Nurse's Note Reviewed ED Review of Systems - Review of Systems General/Constitutional: No fever, No chills Skin: No skin lesions Head: No headache Eyes: No loss of vision ENT: No earache Neck: No neck pain Cardio Vascular: No chest pain, No palpitations Pulmonary: No SOB GI: No nausea, No vomiting, No diarrhea G/U: No dysuria Musculoskeletal: Bone or joint pain Endocrine: No polyuria, No polydipsia Psychiatric: No prior psych history Hematopoietic: No bruising Allergic/Immuno: No urticaria Neurological: No syncope ED Past Medical History - Past Medical History Past Medical History: No significant medical hx Family History: Diabetes Melitus, HTN Social History: Smoker, No Alcohol, Other (smokes 1 pack per day) Surgical History: Appendectomy, Cholecystectomy ( smokes one) Psychiatricy History: None Medication: Reviewed Family Medical History - Family Member Mother History Unknown: Yes Ethnicity: Living Status: Hx Family Cancer: No Hx Family Coronary Artery Disease: No Hx Family Congestive Heart Failure: No Hx Family Hypertension: No Hx Family Stroke: No Hx Family Diabetes: No Hx Family Seizures: No Hx Family Dementia: No Hx Family AIDS: No Hx Family HIV: No Hx Family COPD: No Hx Family Hepatitis: No Hx Family Psychiatric Problems: Yes Hx Family Tuberculosis: No Father History Unknown: Yes Ethnicity: Living Status: Hx Family Cancer: No Hx Family Coronary Artery Disease: No Hx Family Congestive Heart Failure: No Hx Family Hypertension: No Hx Family Stroke: No Hx Family Diabetes: No Hx Family Seizures: No Hx Family Dementia: No Hx Family AIDS: No Hx Family HIV: No Hx Family COPD: No Hx Family Hepatitis: No Hx Family Psychiatric Problems: No Hx Family Tuberculosis: No ED Physical Exam - Physical Examination General/Constitutional: Alert Other Gen/Cons comments:: Disheveled Head: Atraumatic Eyes: Lids, conjuctiva normal Skin: Nl inspection ENMT: External ears, nose nl Other ENMT comments:: 4 out of four poor dental hygiene Neck: No nuchal rigidity Respiratory: Nl effort/Exclusion, Clear to Auscultation, No Wheeze/Rhonchi/Rales Cardio Vascular: RRR GI: No tenderness/rebounding/guarding, No organomegaly : No CVA tenderness Other Extremities comments:: Left foot; tenderness of heel; lesser tenderness of arch; neurovascular intact Neuro/Psych: Alert/oriented ED Labs/Radiology/EKG Results - Lab Results Comments:: Bone spur left heel otherwise x-rays are normal ED Septic Shock - . Is Septic Shock (SBP<90, OR Lactate>4 mmol\L) present?: No ED Reassessment (Disposition) - Reassessment Reassessment Condition:: Unchanged - Diagnosis Diagnosis:: Bone spur left heel - Aftercare/Follow up Instructions Aftercare/Follow-Up Instructions:: Refer to Discharge Instructions - Patient Disposition Discharge/Transfer:: Home Condition at Disposition:: Stable, Unchanged
--- NOTE | 2017-06-12 08:11 | Diagnostic Imaging Report ---
Left foot (3 views) HISTORY: Pain No acute bony abnormalities are seen. No fractures spur formation is noted along the dorsal aspect of the posterior calcaneus. A faint calcification is noted in the soft tissues adjacent to the posterior margin of the talus. Findings most likely on a dystrophic basis. IMPRESSION: 1. No definite acute bony abnormalities. In the presence of recent trauma and persistent symptoms, a repeat radiograph in 5-7 days may be helpful for detection of a subtle or occult fracture.
--- NOTE | 2017-06-12 08:13 | Diagnostic Imaging Report ---
Left calcaneus (2 views) HISTORY: Pain No acute bony abnormalities. No fractures. Spur formation noted along the posterior margin of the calcaneus. Calcification may also be within the soft tissues in this area most likely a dystrophic basis. A 3 mm calcific density is noted adjacent posterior margin of the talus. This may be on a dystrophic basis. IMPRESSION: 1. No acute bony abnormalities 2. Calcaneal spur formation 3. Calcific densities probably a dystrophic basis. In the presence of recent trauma and persistent symptoms, a repeat radiograph in 5-7 days may be helpful for detection of a subtle or occult fracture.
== END 2017-06-11 21:00 | disposition left against medical advice (07) ==
LOC: ER 18:21
DX: M77.8 Other enthesopathies, not elsewhere classified (principal); F17.210 Nicotine dependence, cigarettes, uncomplicated; Z90.49 Acquired absence of other specified parts of digestive tract
CPT/HCPCS: 73630-TC-LT; 73650-TC-LT; Z7502

== ENCOUNTER 2017-06-22 17:05 | Emergency (ER) | payer MEDICAID ==
[2017-06-22] MEDS ORDERED: Sodium Chloride 0.9% 2,000 ML IV ONE (19:57)
--- NOTE | 2017-06-22 20:02 | ED Physician Chart ---
ED Chief Complaint/HPI - Patient Information Date Seen:: 06/22/17 Time Seen:: 19:50 Chief Complaint:: abdominal pain History of Present Illness:: Patient's had abdominal pain, vomiting and diarrhea for last 4 days Allergies:: Allergies Allergy/AdvReac Type Severity Reaction Status Date / Time aspirin Allergy Verified 04/24/17 18:59 gabapentin Allergy Verified 04/24/17 18:59 ketorolac [From Torad[place]] Allergy Verified 04/24/17 18:59 promethazine Allergy Verified 04/24/17 18:59 tramadol Allergy Verified 04/24/17 18:59 Vitals:: Vital Signs - 8 hr 06/22/17 06/22/17 17:25 19:07 Temp 97.8 F 98.2 F HR 106 82 RR 20 18 BP 119/68 107/62 O2 Sat % 96 95 Historian:: Patient Review:: Nurse's Note Reviewed ED Review of Systems - Review of Systems General/Constitutional: No fever, No chills Skin: No skin lesions Head: No headache Eyes: No loss of vision ENT: No earache Neck: No neck pain Pulmonary: No SOB GI: Nausea, Vomiting, Diarrhea G/U: No dysuria, No hematuria Musculoskeletal: No bone or joint pain Endocrine: No polyuria, No polydipsia Psychiatric: No prior psych history Hematopoietic: No bruising Allergic/Immuno: No urticaria Neurological: No syncope ED Past Medical History - Past Medical History Past Medical History: HTN, Other (hypercholesterolemia) Family History: Diabetes Melitus Social History: Smoker, Other (smokes 1 pack a day) Surgical History: Appendectomy, Cholecystectomy Psychiatricy History: None Medication: Reviewed Family Medical History - Family Member Mother History Unknown: Yes Ethnicity: Living Status: Hx Family Cancer: No Hx Family Coronary Artery Disease: No Hx Family Congestive Heart Failure: No Hx Family Hypertension: No Hx Family Stroke: No Hx Family Diabetes: No Hx Family Seizures: No Hx Family Dementia: No Hx Family AIDS: No Hx Family HIV: No Hx Family COPD: No Hx Family Hepatitis: No Hx Family Psychiatric Problems: Yes Hx Family Tuberculosis: No Father History Unknown: Yes Ethnicity: Living Status: Hx Family Cancer: No Hx Family Coronary Artery Disease: No Hx Family Congestive Heart Failure: No Hx Family Hypertension: No Hx Family Stroke: No Hx Family Diabetes: No Hx Family Seizures: No Hx Family Dementia: No Hx Family AIDS: No Hx Family HIV: No Hx Family COPD: No Hx Family Hepatitis: No Hx Family Psychiatric Problems: No Hx Family Tuberculosis: No ED Physical Exam - Physical Examination General/Constitutional: Well-developed, well-nourished, Alert, No distress Head: Atraumatic Eyes: Lids, conjuctiva normal, PERRL Skin: Nl inspection, No rash, No skin lesions, No ecchymosis, Well hydrated, No lymphadenopathy ENMT: External ears, nose nl, Nasal exam nl, Lips, teeth, gums nl Other ENMT comments:: 3/4 poor dental hygiene Neck: No nuchal rigidity Respiratory: Nl effort/Exclusion, Clear to Auscultation Cardio Vascular: RRR, No murmur, gallop, rubs, NL S1 S2 GI: No hernia, Normal BS's, Nondistended Other GI comments:: Diffuse tenderness : No CVA tenderness Other Extremities comments:: 1.54 pretibial pitting edema Neuro/Psych: No focal deficits ED Labs/Radiology/EKG Results - Lab Results Results: Laboratory Results - last 24 hr 06/22/17 06/22/17 20:11 20:11 WBC 7.8 D RBC 4.54 Hgb 13.1 Hct 37.9 L MCV 83.4 MCH 28.9 MCHC Differential 34.6 RDW 15.6 Plt Count 174 MPV 8.7 Neutrophils % 57.7 Lymphocytes % 32.0 Monocytes % 6.6 Eosinophils % 3.0 Basophils % 0.7 Sodium 135 L Potassium 3.5 Chloride 108 H Carbon Dioxide 23.0 Anion Gap 7.5 BUN 19 Creatinine 1.2 Est GFR ( Amer) > 60.0 Est GFR (Non-Af Amer) > 60.0 BUN/Creatinine Ratio 15.8 Glucose 109 H Calcium 8.1 L Magnesium 2.0 Lipase 42 ED Septic Shock - . Is Septic Shock (SBP<90, OR Lactate>4 mmol\L) present?: No - <6hrs of presentation: Vital Signs: Vital Signs - 8 hr 06/22/17 06/22/17 17:25 19:07 Temp 97.8 F 98.2 F HR 106 82 RR 20 18 BP 119/68 107/62 O2 Sat % 96 95 ED Reassessment (Disposition) - Reassessment Reassessment Condition:: Improved - Diagnosis Diagnosis:: Gastritis - Aftercare/Follow up Instructions Aftercare/Follow-Up Instructions:: Refer to Discharge Instructions - Patient Disposition Discharge/Transfer:: Home Condition at Disposition:: Stable, Improved
[2017-06-22 20:20] LABS: % BASOPHILS 0.7 % (0.0-2.0); % MONOCYTES 6.6 % (2.0-10.0); % NEUTROPHILS 57.7 % (40.0-80.0); BASOPHILE ABSOLUTE 0.1 Th/cumm (0-0.2); EOSINOPHILE ABSOLUTE 0.2 Th/cmm (0.1-0.4); HEMATOCRIT 37.9 % (41.0-60); HEMOGLOBIN 13.1 gm/dL (12-16); LYMPHOCYTE ABSOLUTE 2.5 Th/cmm (1.5-3.0); MEAN CELL VOLUME 83.4 fl (80-99); MEAN CORPUSCULAR HEMOGLOBIN 28.9 pg (26.0-30.0); MEAN CORPUSCULAR HGB CONC 34.6 pg (28.0-36.0); MEAN PLATELET VOLUME 8.7 fl; MONOCYTE ABSOLUTE 0.5 Th/cmm (0.3-1.0); NEUTROPHILE ABSOLUTE 4.5 Th/cmm (1.8-8.0); PLATELET COUNT 174 Th/cmm (150-400); RED BLOOD COUNT 4.54 Mil/cmm (4.30-5.70); RED CELL DISTRIBUTION WIDTH 15.6 % (11.5-20.0)
[2017-06-22 20:23] LABS: WHITE BLOOD COUNT 7.8 Th/cmm (4.8-10.8)
[2017-06-22 20:34] LABS: ANION GAP 7.5 (7.0-16.0); BUN - UREA NITROGEN 19 mg/dL (7-25); CALCIUM SERUM 8.1 mg/dL (8.6-10.3); CHLORIDE 108 mEq/L (98-107); CREATININE - SERUM 1.2 mg/dL (0.7-1.3); GFR AFRICAN-AMERICAN > 60.0 ml/min (>90); GFR NON AFRICAN-AMERICAN > 60.0 ml/min; GLUCOSE 109 mg/dL (70-105); LIPASE 42 U/L (11-82); POTASSIUM SERUM 3.5 mEq/L (3.5-5.1); SODIUM SERUM 135 mEq/L (136-145)
== END 2017-06-22 21:10 | disposition home or self-care (01) ==
LOC: ER 17:05
DX: K29.70 Gastritis, unspecified, without bleeding (principal); I10 Essential (primary) hypertension; F17.210 Nicotine dependence, cigarettes, uncomplicated; Z90.49 Acquired absence of other specified parts of digestive tract; Z88.6 Allergy status to analgesic agent; Z88.8 Allergy status to other drugs, medicaments and biological substances
CPT/HCPCS: 99284; 96374; 36415; 85025; 83690; 83735; 80048; J2405; J7030; Z7502

== ENCOUNTER 2017-07-17 17:01 | Emergency (ER) | payer MEDICAID ==
--- NOTE | 2017-07-17 19:38 | ED Physician Chart ---
ED Chief Complaint/HPI - Patient Information Date Seen:: 07/17/17 Time Seen:: 19:20 Chief Complaint:: Abdominal pain History of Present Illness:: 56 yo male had abdominal pain, N/V and diarrhea for 5 days. Allergies:: Allergies Allergy/AdvReac Type Severity Reaction Status Date / Time acetaminophen [From [place]] Allergy Verified 07/17/17 17:24 aspirin Allergy Verified 04/24/17 18:59 gabapentin Allergy Verified 04/24/17 18:59 hydrocodone [From [place]] Allergy Verified 07/17/17 17:24 ketorolac [From Toradol] Allergy Verified 04/24/17 18:59 promethazine Allergy Verified 04/24/17 18:59 tramadol Allergy Verified 04/24/17 18:59 Vitals:: Vital Signs - 8 hr 07/17/17 17:27 Temp 98.6 F HR 94 RR 16 BP 108/68 O2 Sat % 99 ED Review of Systems - Review of Systems General/Constitutional: No fever Skin: No bruising Head: No headache Eyes: No pain ENT: Other (dental caries) Neck: No neck pain Cardio Vascular: No chest pain Pulmonary: No SOB GI: Nausea, Vomiting, Pain Musculoskeletal: Back pain Psychiatric: Prior psych history Neurological: Vertigo ED Past Medical History - Past Medical History Past Medical History: HTN, DM, Dyslipidemia, PUD/GERD, Other (vertigo) Social History: Smoker, No Alcohol, Illicit Drug Use Surgical History: Appendectomy, Cholecystectomy Family Medical History - Family Member Mother History Unknown: Yes Ethnicity: Living Status: Hx Family Cancer: No Hx Family Coronary Artery Disease: No Hx Family Congestive Heart Failure: No Hx Family Hypertension: No Hx Family Stroke: No Hx Family Diabetes: No Hx Family Seizures: No Hx Family Dementia: No Hx Family AIDS: No Hx Family HIV: No Hx Family COPD: No Hx Family Hepatitis: No Hx Family Psychiatric Problems: No Hx Family Tuberculosis: No Father History Unknown: Yes Ethnicity: Living Status: Hx Family Cancer: No Hx Family Coronary Artery Disease: No Hx Family Congestive Heart Failure: No Hx Family Hypertension: No Hx Family Stroke: No Hx Family Diabetes: No Hx Family Seizures: No Hx Family Dementia: No Hx Family AIDS: No Hx Family HIV: No Hx Family COPD: No Hx Family Hepatitis: No Hx Family Psychiatric Problems: No Hx Family Tuberculosis: No ED Physical Exam - Physical Examination General/Constitutional: Awake Eyes: PERRL Skin: No ecchymosis ENMT: Nasal exam nl Neck: No nuchal rigidity Respiratory: No Wheeze/Rhonchi/Rales Cardio Vascular: No murmur, gallop, rubs Other GI comments:: epigastric tenderness Extremities: normal strength in all extremities Neuro/Psych: No focal deficits ED Assessment - Assessment General Assessment: Gastritis Assessment/Comments:: CBC, CMP ETOH level KCL 20mEq po Pantoprazole 40mg Ibuprofen 800mg Pantoprazole 40mg Patient left AMA ED Septic Shock - . Is Septic Shock (SBP<90, OR Lactate>4 mmol\L) present?: No - <6hrs of presentation: Vital Signs: Vital Signs - 8 hr 07/17/17 17:27 Temp 98.6 F HR 94 RR 16 BP 108/68 O2 Sat % 99 ED Reassessment (Disposition) - Reassessment Reassessment Condition:: Improved - Patient Disposition Discharge/Transfer:: Against Medical Advice ED Discharge Plan - Patient Disposition Admit/Discharge/Transfer: AGAINST MEDICAL ADVICE Condition at Disposition: Stable
[2017-07-17 19:47] LABS: % BASOPHILS 0.5 % (0.0-2.0); % EOSINOPHILS 2.9 % (0.0-5.0); % LYMPHOCYTES 30.3 % (20.0-50.0); % MONOCYTES 7.7 % (2.0-10.0); % NEUTROPHILS 58.6 % (40.0-80.0); EOSINOPHILE ABSOLUTE 0.2 Th/cmm (0.1-0.4); HEMATOCRIT 40.3 % (41.0-60); HEMOGLOBIN 13.3 gm/dL (12-16); LYMPHOCYTE ABSOLUTE 2.4 Th/cmm (1.5-3.0); MEAN CELL VOLUME 84.6 fl (80-99); MEAN CORPUSCULAR HGB CONC 33.1 pg (28.0-36.0); MONOCYTE ABSOLUTE 0.6 Th/cmm (0.3-1.0); NEUTROPHILE ABSOLUTE 4.8 Th/cmm (1.8-8.0); PLATELET COUNT 178 Th/cmm (150-400); RED BLOOD COUNT 4.76 Mil/cmm (4.30-5.70); RED CELL DISTRIBUTION WIDTH 15.6 % (11.5-20.0)
[2017-07-17 20:03] LABS: ALB/GLOB RATIO 1.5 (1.0-1.8); ALKALINE PHOSPHATASE 97 U/L (34-104); ANION GAP 10.3 (7.0-16.0); BILIRUBIN,TOTAL 0.3 mg/dL (0.3-1.0); BUN - UREA NITROGEN 17 mg/dL (7-25); CALCIUM SERUM 9.1 mg/dL (8.6-10.3); CARBON DIOXIDE 25.9 mEq/L (21.0-31.0); CHLORIDE 105 mEq/L (98-107); CREATININE - SERUM 1.3 mg/dL (0.7-1.3); GFR AFRICAN-AMERICAN > 60.0 ml/min (>90); GFR NON AFRICAN-AMERICAN > 60.0 ml/min; GLUCOSE 149 mg/dL (70-105); POTASSIUM SERUM 3.2 mEq/L (3.5-5.1); SGOT 64 U/L (13-39); SGPT/ALT 33 U/L (7-52); SODIUM SERUM 138 mEq/L (136-145); TOTAL PROTEIN,SERUM 6.6 gm/dL (6.0-8.3)
[2017-07-17] MEDS ORDERED: Potassium Chloride 20 mEq ER Tab PO ONE ×2 (20:35)
== END 2017-07-17 20:43 | disposition left against medical advice (07) ==
LOC: ER 17:01
DX: R10.9 Unspecified abdominal pain (principal)
CPT/HCPCS: 36415-UA; 80053-TC; 80320-TC; 83690-TC; 85025-TC; Z7502

== ENCOUNTER 2017-07-18 16:56 | Emergency (ER) | payer MEDICAID ==
--- NOTE | 2017-07-18 17:34 | ED Physician Chart ---
ED Chief Complaint/HPI - Patient Information Date Seen:: 07/18/17 Time Seen:: 17:34 Chief Complaint:: BACL PAIN FOR 5 DAYS History of Present Illness:: THIS PT HAS LONG HISTORYOF CHRONIC LOW BACK AND ABDOMINAL PAIN. 10/10 BACK PAIN IS SHARP, IN THE RT LOWER BACK AND MADE WORSE BY WALKING. LESS PAIN WHEN HE LAYS DOWN. HAS HAD 10/10 UPPER ABDOMINAL PAINS X 2 DAYS AND WAS SEEN HERE YESTERDAY FOR SAME COMPLAINT. HE ESTIMATES HE HAS VOMITED 15 TIME TODAY. ALSO HAS HAD 3 EPISODES OF DIARRHEA. THE PT IS S/P APPENDECTOMY AND CHOLECYSTECTOMY. HE DENIES AND FEVER ON RECEDNT INJURY. THE BACK PAIN RADIATES INTO HIS RT LOWER EXTREMITY TO BEHIND HIS KNEE. ABD PAIN IS WORSE WITH WALKING AND MOVEMRT. PT ALSO WITH HX OF MNIRE'S DISEASE DATING BACK TO . NAUSEA AND VOMITING IS WORSE WITH MOVEMENT OF HEAD. Allergies:: Allergies Allergy/AdvReac Type Severity Reaction Status Date / Time acetaminophen [From [facility]] Allergy Verified 07/18/17 17:17 aspirin Allergy Verified 07/18/17 17:17 gabapentin Allergy Verified 07/18/17 17:17 hydrocodone [From [facility]] Allergy Verified 07/18/17 17:17 ketorolac [From Toradol] Allergy Verified 07/18/17 17:17 promethazine Allergy Verified 07/18/17 17:17 tramadol Allergy Verified 07/18/17 17:17 Vitals:: Vital Signs - 8 hr 07/18/17 17:17 Temp 98.1 F HR 75 RR 18 BP 107/65 O2 Sat % 98 ED Review of Systems - Review of Systems General/Constitutional: No fever, No chills, Weakness, Other (chronic and in both legs.) Skin: No skin lesions, No rash Head: No headache, Light headed Eyes: No loss of vision, No diplopia ENT: No earache, No sore throat, Tinnitus Neck: No neck pain, No swelling, No thyromegaly, No stiffness, No mass noted GI: Nausea, Vomiting, Diarrhea, Other (small amount of bright red blood due to retching with no clots or coffee-ground.) Musculoskeletal: No bone or joint pain, Back pain Psychiatric: No suicidal ideation Hematopoietic: No bruising, No lymphadenopathy Allergic/Immuno: No urticaria, No angioedema Neurological: No syncope, Weakness, No paresthesia, No headache, No seizure, No dizziness ED Past Medical History - Past Medical History Past Medical History: HTN, Dyslipidemia Social History: Smoker, Single (no alcohol today.) Employment:: Is down to a single cigarette per day. [place] Not . Denies any recent use of illegal drugs. Family Medical History - Family Member Mother History Unknown: Yes Ethnicity: Living Status: Hx Family Cancer: No Hx Family Coronary Artery Disease: No Hx Family Congestive Heart Failure: No Hx Family Hypertension: No Hx Family Stroke: No Hx Family Diabetes: No Hx Family Seizures: No Hx Family Dementia: No Hx Family AIDS: No Hx Family HIV: No Hx Family COPD: No Hx Family Hepatitis: No Hx Family Psychiatric Problems: No Hx Family Tuberculosis: No Father History Unknown: Yes Ethnicity: Living Status: Hx Family Cancer: No Hx Family Coronary Artery Disease: No Hx Family Congestive Heart Failure: No Hx Family Hypertension: No Hx Family Stroke: No Hx Family Diabetes: No Hx Family Seizures: No Hx Family Dementia: No Hx Family AIDS: No Hx Family HIV: No Hx Family COPD: No Hx Family Hepatitis: No Hx Family Psychiatric Problems: No Hx Family Tuberculosis: No ED Labs/Radiology/EKG Results - Lab Results Results: Laboratory Tests 07/18/17 07/18/17 07/18/17 17:40 17:40 17:40 WBC 7.2 RBC 4.58 Hgb 12.9 Hct 38.7 L MCV 84.7 MCH 28.2 MCHC Differential 33.3 RDW 16.0 Plt Count 163 MPV 9.3 Neutrophils % 64.4 Lymphocytes % 27.0 Monocytes % 5.5 Eosinophils % 3.1 Basophils % 0.0 Sodium 139 Potassium 3.5 Chloride 107 Carbon Dioxide 26.5 Anion Gap 9.0 BUN 17 Creatinine 1.1 Est GFR ( Amer) > 60.0 Est GFR (Non-Af Amer) > 60.0 BUN/Creatinine Ratio 15.5 Glucose 136 H Calcium 9.2 Total Bilirubin 0.2 L AST 45 H ALT 31 Alkaline Phosphatase 95 Total Protein 6.8 Albumin 4.0 L Globulin 2.8 Albumin/Globulin Ratio 1.4 Lipase 52 Urine Source RANDOM Urine Color DARK YELLOW Urine Clarity CLEAR Urine pH 6.0 Ur Specific [place] >= 1.030 Urine Protein NEGATIVE Urine Glucose (UA) NEGATIVE Urine Ketones NEGATIVE Urine Blood NEGATIVE Urine Nitrate NEGATIVE Urine Bilirubin SMALL H Urine Urobilinogen 0.2 Ur Leukocyte Esterase NEGATIVE Urine RBC 0-1 Urine WBC 0-2 Ur Epithelial Cells RARE Urine Bacteria NONE SEEN Laboratory analysiS: CBC is unremarkable and that there is no leukocytosis, anemia or platelet abnormality. Electrolytes were all within normal parameters. Renal function studies were all within normal limits. Analysis showed no evidence for UTI. Total bilirubin, ALT, alkaline phosphatase were all within normal parameters. There was a mild elevation of the AST. These values are consistent from laboratory studies performed yesterday when he was in the ED. ED Septic Shock - . Is Septic Shock (SBP<90, OR Lactate>4 mmol\L) present?: No - <6hrs of presentation: Vital Signs: Vital Signs - 8 hr 07/18/17 17:17 Temp 98.1 F HR 75 RR 18 BP 107/65 O2 Sat % 98 ED Reassessment (Disposition) - Reassessment Reassessment Condition:: Improved - Diagnosis Diagnosis:: ACUTE GASTRITIS, CHRONIC BACK PAIN Follow up with your primary care physician this coming week if her symptoms have not completely resolved. Return to the emergency department for reevaluation if you have further episodes of vomiting, diarrhea or back pain. - Aftercare/Follow up Instructions Aftercare/Follow-Up Instructions:: Counseled pt regarding lab results/diagnosis & need follow up ED Discharge Plan - Patient Disposition Admit/Discharge/Transfer: PT DISCHARGED HOME Condition at Disposition: Stable Instructions: Gastritis, Adult, [id number] Additional Instructions: Follow-up with primary MD in 2-3 days.
[2017-07-18 17:46] LABS: % EOSINOPHILS 3.1 % (0.0-5.0); % MONOCYTES 5.5 % (2.0-10.0); % NEUTROPHILS 64.4 % (40.0-80.0); EOSINOPHILE ABSOLUTE 0.2 Th/cmm (0.1-0.4); HEMATOCRIT 38.7 % (41.0-60); HEMOGLOBIN 12.9 gm/dL (12-16); LYMPHOCYTE ABSOLUTE 1.9 Th/cmm (1.5-3.0); MEAN CELL VOLUME 84.7 fl (80-99); MEAN CORPUSCULAR HEMOGLOBIN 28.2 pg (26.0-30.0); MEAN CORPUSCULAR HGB CONC 33.3 pg (28.0-36.0); MEAN PLATELET VOLUME 9.3 fl; MONOCYTE ABSOLUTE 0.4 Th/cmm (0.3-1.0); NEUTROPHILE ABSOLUTE 4.7 Th/cmm (1.8-8.0); PLATELET COUNT 163 Th/cmm (150-400); RED BLOOD COUNT 4.58 Mil/cmm (4.30-5.70); WHITE BLOOD COUNT 7.2 Th/cmm (4.8-10.8)
[2017-07-18 17:54] LABS: URINE MICROSCOPIC INDICATED? YES; URINE SOURCE RANDOM
[2017-07-18] MEDS ORDERED: Sodium Chloride 0.9% 1,000 ML IV ONE (17:55)
[2017-07-18 17:56] LABS: URINE BILIRUBIN SMALL (NEGATIVE); URINE BLOOD NEGATIVE (NEGATIVE); URINE GLUCOSE (UA) NEGATIVE (NEGATIVE); URINE KETONE NEGATIVE (NEGATIVE); URINE LEUKOCYTE ESTERASE NEGATIVE (NEGATIVE); URINE NITRATE NEGATIVE (NEGATIVE); URINE PROTEIN NEGATIVE (NEGATIVE); URINE UROBILINOGEN 0.2 E.U./dL (0.2 - 1.0)
[2017-07-18 18:01] LABS: ALB/GLOB RATIO 1.4 (1.0-1.8); ALKALINE PHOSPHATASE 95 U/L (34-104); BILIRUBIN,TOTAL 0.2 mg/dL (0.3-1.0); BUN - UREA NITROGEN 17 mg/dL (7-25); CALCIUM SERUM 9.2 mg/dL (8.6-10.3); CARBON DIOXIDE 26.5 mEq/L (21.0-31.0); CHLORIDE 107 mEq/L (98-107); CREATININE - SERUM 1.1 mg/dL (0.7-1.3); GFR AFRICAN-AMERICAN > 60.0 ml/min (>90); GFR NON AFRICAN-AMERICAN > 60.0 ml/min; GLUCOSE 136 mg/dL (70-105); LIPASE 52 U/L (11-82); POTASSIUM SERUM 3.5 mEq/L (3.5-5.1); SGOT 45 U/L (13-39); SGPT/ALT 31 U/L (7-52); SODIUM SERUM 139 mEq/L (136-145); TOTAL PROTEIN,SERUM 6.8 gm/dL (6.0-8.3); URINE BACTERIA NONE SEEN /hpf (NONE SEEN); URINE CLARITY CLEAR (CLEAR); URINE COLOR DARK YELLOW; URINE EPITHELIAL CELLS RARE /lpf (FEW); URINE RBC 0-1 /hpf (0-5); URINE WBC 0-2 /hpf (0-5)
== END 2017-07-18 18:55 | disposition home or self-care (01) ==
LOC: ER 16:56
DX: G89.29 Other chronic pain (principal); M54.5 Low back pain; K29.00 Acute gastritis without bleeding; I10 Essential (primary) hypertension; E78.5 Hyperlipidemia, unspecified
CPT/HCPCS: 99284; 96374; 36415; 85025; 81001; 83690; 80053; J2405; J7030; Z7502

== ENCOUNTER 2017-07-20 11:18 | Emergency (ER) | payer MEDICAID ==
[2017-07-20] MEDS ORDERED: Sodium Chloride 0.9% 1,000 ML IV ONE ×2 (11:29→11:33)
--- NOTE | 2017-07-20 11:29 | ED Physician Chart ---
ED Chief Complaint/HPI - Patient Information Date Seen:: 07/20/17 Time Seen:: 11:29 Chief Complaint:: CHRONIC LOW BACK PAIN. History of Present Illness:: THIS 56-YEAR-OLD MALE COMES TO THE EMERGENCY DEPARTMENT COMPLAINING OF RECURRENT PAIN IN THE LOWER ABDOMEN AND LOW BACK. HE IS WELL KNOWN TO ME AND VISITS THE ER 3 TO 5 TIMES EVERY WEEK. HIS COMPLAINT IS USUALLY LOWER ABDOMINAL PAIN BUT HE ALSO PRESENTS WITH COMPLAINTS OF LOW BACK PAIN. HE HAS HAD THIS ABDOMINAL PAIN MANY TIMES IN THE PAST AND TODAY THE PAIN IS ACCOMPANIED BY MULTIPLE EPISODES OF VOMITING. THE PATIENT DENIES ANY HEMATEMESIS. HE ALSO DENIES DIARRHEA AND BLOODIED STOOLS. THERE ARE NO EXACERBATING OR RELIEVING FACTORS FOR THE ABDOMINAL PAIN. HE DENIES ANY RECENT FEVER, CHILLS, DIAPHORESIS , DYSURIA OR HEMATURIA. Allergies:: Allergies Allergy/AdvReac Type Severity Reaction Status Date / Time acetaminophen [From [place]] Allergy Verified 07/18/17 17:17 aspirin Allergy Verified 07/18/17 17:17 gabapentin Allergy Verified 07/18/17 17:17 hydrocodone [From [place]] Allergy Verified 07/18/17 17:17 ketorolac [From Toradol] Allergy Verified 07/18/17 17:17 promethazine Allergy Verified 07/18/17 17:17 tramadol Allergy Verified 07/18/17 17:17 ED Review of Systems - Review of Systems General/Constitutional: No fever, No chills, No weight loss, No diaphoresis Skin: No skin lesions, No bruising Head: No headache, Other ( THE PATIENT COMPLAINS OF VERTIGO, NAUSEA, VOMITING AND STATES THAT THE SYMPTOMS ARE MADE WORSE BY MOVEMENT OF HIS HEAD. THE PATIENT STATES THAT HE HAS HAD VERTIGO SINCE HE WAS A CHILD.) Cardio Vascular: No chest pain, No edema GI: Nausea, Vomiting, No diarrhea, No hematemesis G/U: Dysuria, No frequency, No hematuria Musculoskeletal: No bone or joint pain, Back pain, No muscle pain Endocrine: No polyuria, No polydipsia Psychiatric: Anxiety, No suicidal ideation, No auditory hallucination Allergic/Immuno: No urticaria, No angioedema Neurological: No syncope, Weakness, No headache, No seizure, Dizziness, Vertigo , Other ( THE PATIENT HAS NO NEW URINARY INCONTINENCE OR RETENTION. HE COMPLAINS OF PARESTHESIAS) Other: HE COMPLAINS OF PARESTHESIAS IN HIS LEFT LOWER EXTREMITY WHICH ARE AN OLD COMPLAINT. Family Medical History - Family Member Mother History Unknown: Yes Ethnicity: Living Status: Hx Family Cancer: No Hx Family Coronary Artery Disease: No Hx Family Congestive Heart Failure: No Hx Family Hypertension: No Hx Family Stroke: No Hx Family Diabetes: No Hx Family Seizures: No Hx Family Dementia: No Hx Family AIDS: No Hx Family HIV: No Hx Family COPD: No Hx Family Hepatitis: No Hx Family Psychiatric Problems: No Hx Family Tuberculosis: No Father History Unknown: Yes Ethnicity: Living Status: Hx Family Cancer: No Hx Family Coronary Artery Disease: No Hx Family Congestive Heart Failure: No Hx Family Hypertension: No Hx Family Stroke: No Hx Family Diabetes: No Hx Family Seizures: No Hx Family Dementia: No Hx Family AIDS: No Hx Family HIV: No Hx Family COPD: No Hx Family Hepatitis: No Hx Family Psychiatric Problems: No Hx Family Tuberculosis: No ED Physical Exam - Physical Examination General/Constitutional: Awake, Well-developed, well-nourished, Alert, Ambulatory Head: Atraumatic Eyes: Lids, conjuctiva normal, PERRL Skin: No skin lesions ENMT: External ears, nose nl, Oropharynx nl, Tonsils nl Other ENMT comments:: MULTIPLE MISSING AND DECAYED TEETH. Neck: Nontender, No JVD, No nuchal rigidity, No mass, No stridor Respiratory: Nl effort/Exclusion, Clear to Auscultation, No Wheeze/Rhonchi/Rales Cardio Vascular: RRR, No murmur, gallop, rubs, NL S1 S2 Other Cardio Vascular comments:: THERE IS MILD TENDERNESS TO PALPATION OF THE LOWER ABDOMEN. THERE IS NO ASSOCIATED REBOUND OR GUARDING. NO ABDOMINAL MASSES. NEITHER THE LIVER OR THE SPLEEN IS PALPABLE. GOOD FEMORAL PULSES BILATERALLY. GI: Normal BS's, Nondistended, No mass/bruits, No McBurney tenderness Other GI comments:: RECTAL EXAM REFERRED AT MY DISCRETION. : No CVA tenderness Extremities: No tenderness or effusion, Full ROM, normal strength in all extremities, No edema Neuro/Psych: Alert/oriented, Normal sensory exam, Normal motor strength, No focal deficits Misc: No paraspinal tenderness Other Misc comments:: THE PATIENT HAS DIFFUSE TENDERNESS OVER THE LUMBAR SPINE. POSITIVE STRAIGHT LEG RAISING AT APPROXIMATELY 30.. ED Labs/Radiology/EKG Results - Lab Results Results: THE PATIENT REFUSED TO ALLOW FOR BLOOD SPECIMENS. IN THE PAST THE PATIENT HAS HAD FREQUENT CBCS AND METABOLIC PANELS THE RESULTS OF WHICH ARE ALMOST ALWAYS NORMAL. ED Assessment - Assessment General Assessment: CASE SUMMARY: THIS 56-YEAR-OLD MALE IS WELL KNOWN TO ME AND MAKES FREQUENT VISITS TO THE EMERGENCY DEPARTMENT FOR BOTH ABDOMINAL AND LOW BACK PAIN. HE HAS ALLERGIES TO ALMOST ALL NONNARCOTIC PAIN MEDICATIONS. THE PATIENT WAS TREATED WITH ONE LEADER OF NORMAL SALINE AND 4 MG OF ZOFRAN. I HAD A DISCUSSION WITH THE PATIENT REGARDING USE OF OPIATE DRUGS AND HE IS WELL AWARE THAT HE WAS CAN RECEIVE NONE. AFTER BEING IN THE EMERGENCY DEPARTMENT FOR APPROXIMATELY AN HOUR HE NOTIFIED NURSING STAFF THAT HE WISHED TO LEAVE. NURSING STAFF HAD THE PATIENT SIGN OUT AGAINST MEDICAL ADVICE BUT I WAS WILLING TO DISCHARGE HIM AND HAVE HIM FOLLOW UP WITH HIS PAIN DOCTOR. PATIENT WAS DISCHARGED IN STABLE CONDITION AND ADVISED HE COULD RETURN IF HIS SYMPTOMS GOT WORSE. MDM DDX ABD PAIN: NOT CHOLECYSTITIS DUE TO HIS PRIOR CHOLECYSTECTOMY. NOT ACUTE APPENDICITIS DUE TO HIS PRIOR APPENDECTOMY. NOT AAA BASED ON PHYSICAL EXAMINATION AND MULTIPLE PRIOR RADIOGRAPHIC EXAMINATIONS. NOT ISCHEMIC BOWEL BASED ON THE PATIENT'S HISTORY AND PHYSICAL EXAMINATION. ED Septic Shock - . Is Septic Shock (SBP<90, OR Lactate>4 mmol\L) present?: No ED Reassessment (Disposition) - Reassessment Reassessment Condition:: Improved - Diagnosis Diagnosis:: CHRONIC ABDOMINAL AND LOW BACK PAIN. DRUG-SEEKING BEHAVIOR. - Patient Disposition Discharge/Transfer:: Against Medical Advice ED Discharge Plan - Patient Disposition Admit/Discharge/Transfer: AGAINST MEDICAL ADVICE Condition at Disposition: Unchanged
== END 2017-07-20 12:10 | disposition left against medical advice (07) ==
LOC: ER 11:18
DX: G89.29 Other chronic pain (principal); M54.5 Low back pain; R10.30 Lower abdominal pain, unspecified; Z76.5 Malingerer [conscious simulation]; Z88.5 Allergy status to narcotic agent; Z88.8 Allergy status to other drugs, medicaments and biological substances
CPT/HCPCS: 99284; 96374; J2405; J7030; Z7502

== ENCOUNTER 2017-07-21 17:58 | Emergency (ER) | payer MEDICAID ==
--- NOTE | 2017-07-21 19:57 | ED Physician Chart ---
ED Chief Complaint/HPI - Patient Information Date Seen:: 07/21/17 Time Seen:: 19:56 Chief Complaint:: Abdominal pain History of Present Illness:: 56 yo male developed abdominal pain with nausea, vomiting for 2 days. Allergies:: Allergies Allergy/AdvReac Type Severity Reaction Status Date / Time acetaminophen [From [place]] Allergy Verified 07/18/17 17:17 aspirin Allergy Verified 07/18/17 17:17 gabapentin Allergy Verified 07/18/17 17:17 hydrocodone [From [place]] Allergy Verified 07/18/17 17:17 ketorolac [From Toradol] Allergy Verified 07/18/17 17:17 meperidine [From [place]] Allergy Verified 07/20/17 11:29 promethazine Allergy Verified 07/18/17 17:17 tramadol Allergy Verified 07/18/17 17:17 Vitals:: Vital Signs - 8 hr 07/21/17 07/21/17 18:18 19:29 Temp 99.3 F 98.8 F HR 83 64 RR 18 18 BP 109/73 116/64 O2 Sat % 94 100 ED Review of Systems - Review of Systems General/Constitutional: No fever Skin: No bruising Head: No headache Eyes: No pain ENT: No nasal drainage Neck: No neck pain Cardio Vascular: No chest pain Pulmonary: No SOB GI: Nausea, Vomiting, Pain Musculoskeletal: Back pain Neurological: No focal symptoms ED Past Medical History - Past Medical History Past Medical History: HTN, DM, Dyslipidemia, PUD/GERD Social History: Smoker, No Alcohol, Illicit Drug Use Surgical History: Appendectomy, Cholecystectomy Family Medical History - Family Member Mother History Unknown: Yes Ethnicity: Living Status: Hx Family Cancer: No Hx Family Coronary Artery Disease: No Hx Family Congestive Heart Failure: No Hx Family Hypertension: No Hx Family Stroke: No Hx Family Diabetes: No Hx Family Seizures: No Hx Family Dementia: No Hx Family AIDS: No Hx Family HIV: No Hx Family COPD: No Hx Family Hepatitis: No Hx Family Psychiatric Problems: No Hx Family Tuberculosis: No Father History Unknown: Yes Ethnicity: Living Status: Hx Family Cancer: No Hx Family Coronary Artery Disease: No Hx Family Congestive Heart Failure: No Hx Family Hypertension: No Hx Family Stroke: No Hx Family Diabetes: No Hx Family Seizures: No Hx Family Dementia: No Hx Family AIDS: No Hx Family HIV: No Hx Family COPD: No Hx Family Hepatitis: No Hx Family Psychiatric Problems: No Hx Family Tuberculosis: No ED Physical Exam - Physical Examination General/Constitutional: Awake Eyes: PERRL Skin: No ecchymosis ENMT: Nasal exam nl Neck: No nuchal rigidity Respiratory: No Wheeze/Rhonchi/Rales Cardio Vascular: RRR, No murmur, gallop, rubs, NL S1 S2 Other GI comments:: Epigastric tenderness Extremities: normal strength in all extremities Neuro/Psych: No focal deficits ED Assessment - Assessment General Assessment: abdominal pain Assessment/Comments:: CBC, CMP, lipase ETOH level ED Septic Shock - . Is Septic Shock (SBP<90, OR Lactate>4 mmol\L) present?: No - <6hrs of presentation: Vital Signs: Vital Signs - 8 hr 07/21/17 07/21/17 18:18 19:29 Temp 99.3 F 98.8 F HR 83 64 RR 18 18 BP 109/73 116/64 O2 Sat % 94 100 ED Reassessment (Disposition) - Reassessment Reassessment Condition:: Improved - Patient Disposition Discharge/Transfer:: Home ED Discharge Plan - Patient Disposition Admit/Discharge/Transfer: PT DISCHARGED HOME Instructions: Abdominal Pain, [id number] Additional Instructions: follow up with your primary medical doctor tiara
[2017-07-21 20:16] LABS: % BASOPHILS 0.8 % (0.0-2.0); % EOSINOPHILS 2.4 % (0.0-5.0); % LYMPHOCYTES 24.4 % (20.0-50.0); % NEUTROPHILS 66.4 % (40.0-80.0); BASOPHILE ABSOLUTE 0.1 Th/cumm (0-0.2); EOSINOPHILE ABSOLUTE 0.2 Th/cmm (0.1-0.4); HEMATOCRIT 37.2 % (41.0-60); HEMOGLOBIN 12.3 gm/dL (12-16); LYMPHOCYTE ABSOLUTE 1.9 Th/cmm (1.5-3.0); MEAN CELL VOLUME 84.3 fl (80-99); MEAN CORPUSCULAR HEMOGLOBIN 27.9 pg (26.0-30.0); MEAN CORPUSCULAR HGB CONC 33.1 pg (28.0-36.0); MONOCYTE ABSOLUTE 0.5 Th/cmm (0.3-1.0); NEUTROPHILE ABSOLUTE 5.2 Th/cmm (1.8-8.0); PLATELET COUNT 176 Th/cmm (150-400); RED BLOOD COUNT 4.41 Mil/cmm (4.30-5.70); WHITE BLOOD COUNT 7.9 Th/cmm (4.8-10.8)
[2017-07-21 20:26] LABS: ANION GAP 9.7 (7.0-16.0); BUN - UREA NITROGEN 12 mg/dL (7-25); CALCIUM SERUM 8.7 mg/dL (8.6-10.3); CHLORIDE 107 mEq/L (98-107); CREATININE - SERUM 1.1 mg/dL (0.7-1.3); GFR AFRICAN-AMERICAN > 60.0 ml/min (>90); GFR NON AFRICAN-AMERICAN > 60.0 ml/min; GLUCOSE 89 mg/dL (70-105); LIPASE 30 U/L (11-82); POTASSIUM SERUM 3.7 mEq/L (3.5-5.1); SODIUM SERUM 137 mEq/L (136-145)
== END 2017-07-21 20:50 | disposition home or self-care (01) ==
LOC: ER 17:58
DX: R10.9 Unspecified abdominal pain (principal)
CPT/HCPCS: 36415-UA; 80048-TC; 80320-TC; 83690-TC; 85025-TC; Z7502

== ENCOUNTER 2017-07-24 18:01 | Emergency (ER) | payer MEDICAID ==
--- NOTE | 2017-07-24 18:59 | ED Physician Chart ---
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 Allergies:: Allergies Allergy/AdvReac Type Severity Reaction Status Date / Time acetaminophen [From [place]] Allergy Verified 07/18/17 17:17 aspirin Allergy Verified 07/18/17 17:17 gabapentin Allergy Verified 07/18/17 17:17 hydrocodone [From [place]] Allergy Verified 07/18/17 17:17 ketorolac [From Torad[place]] Allergy Verified 07/18/17 17:17 meperidine [From [place]er[place]] Allergy Verified 07/20/17 11:29 promethazine Allergy Verified 07/18/17 17:17 tramadol Allergy Verified 07/18/17 17:17 Vitals:: Vital Signs - 8 hr 07/24/17 18:25 Temp 98.3 F HR 85 RR 16 BP 138/86 O2 Sat % 96 ED Review of Systems - Review of Systems General/Constitutional: No fever Skin: No rash Head: Headache ENT: No nasal drainage Neck: No neck pain Cardio Vascular: No chest pain Pulmonary: No SOB GI: No nausea, No vomiting Musculoskeletal: Back pain Neurological: No focal symptoms ED Past Medical History - Past Medical History Past Medical History: HTN, DM, Dyslipidemia, PUD/GERD, Other (dental caries, vertigo) Social History: Smoker, No Alcohol, Illicit Drug Use Surgical History: Appendectomy, Cholecystectomy Family Medical History - Family Member Mother History Unknown: Yes Ethnicity: Living Status: Hx Family Cancer: No Hx Family Coronary Artery Disease: No Hx Family Congestive Heart Failure: No Hx Family Hypertension: No Hx Family Stroke: No Hx Family Diabetes: No Hx Family Seizures: No Hx Family Dementia: No Hx Family AIDS: No Hx Family HIV: No Hx Family COPD: No Hx Family Hepatitis: No Hx Family Psychiatric Problems: No Hx Family Tuberculosis: No Father History Unknown: Yes Ethnicity: Living Status: Hx Family Cancer: No Hx Family Coronary Artery Disease: No Hx Family Congestive Heart Failure: No Hx Family Hypertension: No Hx Family Stroke: No Hx Family Diabetes: No Hx Family Seizures: No Hx Family Dementia: No Hx Family AIDS: No Hx Family HIV: No Hx Family COPD: No Hx Family Hepatitis: No Hx Family Psychiatric Problems: No Hx Family Tuberculosis: No ED Physical Exam - Physical Examination General/Constitutional: Awake Head: Atraumatic Eyes: PERRL Skin: No ecchymosis ENMT: Nasal exam nl Neck: No nuchal rigidity Respiratory: No Wheeze/Rhonchi/Rales Cardio Vascular: RRR, No murmur, gallop, rubs, NL S1 S2 GI: No tenderness/rebounding/guarding Other Extremities comments:: lumbar tenderness, painful ROM Neuro/Psych: No focal deficits ED Assessment - Assessment General Assessment: Headache Lumbago Assessment/Comments:: UA, urine drug screen Ibuprofen 800mg qd prn ED Septic Shock - . Is Septic Shock (SBP<90, OR Lactate>4 mmol\L) present?: No - <6hrs of presentation: Vital Signs: Vital Signs - 8 hr // 18:25 Temp 98.3 F HR 85 RR 16 BP 138/86 O2 Sat % 96 ED Reassessment (Disposition) - Reassessment Reassessment Condition:: Improved - Patient Disposition Discharge/Transfer:: Home ED Discharge Plan - Patient Disposition Admit/Discharge/Transfer: PT DISCHARGED HOME Condition at Disposition: Stable Instructions: Lumbosacral Strain
[2017-07-24 20:15] LABS: URINE MICROSCOPIC INDICATED? YES; URINE SOURCE RANDOM
[2017-07-24 20:23] LABS: URINE BILIRUBIN NEGATIVE (NEGATIVE); URINE BLOOD NEGATIVE (NEGATIVE); URINE GLUCOSE (UA) NEGATIVE (NEGATIVE); URINE KETONE NEGATIVE (NEGATIVE); URINE LEUKOCYTE ESTERASE NEGATIVE (NEGATIVE); URINE NITRATE NEGATIVE (NEGATIVE); URINE PROTEIN NEGATIVE (NEGATIVE); URINE UROBILINOGEN 0.2 E.U./dL (0.2 - 1.0)
[2017-07-24 20:24] LABS: URINE CLARITY CLEAR (CLEAR); URINE COLOR YELLOW
[2017-07-24 20:36] LABS: URINE BACTERIA NONE SEEN /hpf (NONE SEEN); URINE EPITHELIAL CELLS NONE SEEN /lpf (FEW); URINE RBC NONE SEEN /hpf (0-5); URINE WBC NONE SEEN /hpf (0-5)
[2017-07-24 21:08] LABS: AMPHETAMINE URINE NEGATIVE (NEGATIVE); BARBITURATES URINE NEGATIVE (NEGATIVE); BENZODIAZEPINES QUAL URINE POSITIVE (NEGATIVE); CANNABINOID THC NEGATIVE (NEGATIVE); COCAINE METABOLITE QUAL URINE NEGATIVE (NEGATIVE); METHADONE URINE NEGATIVE (NEGATIVE); METHAMPHETAMINES QUAL URINE NEGATIVE (NEGATIVE); OPIATES (MORPHINE) QUAL. URINE POSITIVE (NEGATIVE); PHENCYCLIDINE (PCP) URINE NEGATIVE (NEGATIVE); TRICYCLICS (TCA) QUAL. URINE NEGATIVE (NEGATIVE)
== END 2017-07-24 21:30 | disposition home or self-care (01) ==
LOC: ER 18:01
DX: R51 Headache (principal); M54.9 Dorsalgia, unspecified; Z88.5 Allergy status to narcotic agent; Z88.8 Allergy status to other drugs, medicaments and biological substances
CPT/HCPCS: 80307; 81001-TC; Z7502

== ENCOUNTER 2017-07-25 19:11 | Emergency (ER) | payer MEDICAID ==
[2017-07-25 20:08] LABS: URINE MICROSCOPIC INDICATED? YES; URINE SOURCE CLEAN C
--- NOTE | 2017-07-25 20:08 | ED Physician Chart ---
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 HE STATES THAT IT STARTED EARLIER TODAY AND HAS GOTTEN WORSE. THIS PATIENT HAS BEEN HERE MULTIPLE TIMES OVER THE LAST TWO MONTHS. Allergies:: Allergies Allergy/AdvReac Type Severity Reaction Status Date / Time acetaminophen [From [place]] Allergy Verified 07/18/17 17:17 aspirin Allergy Verified 07/18/17 17:17 gabapentin Allergy Verified 07/18/17 17:17 hydrocodone [From [place]] Allergy Verified 07/18/17 17:17 ketorolac [From Toradol] Allergy Verified 07/18/17 17:17 meperidine [From [place]er[place]] Allergy Verified 07/20/17 11:29 promethazine Allergy Verified 07/18/17 17:17 tramadol Allergy Verified 07/18/17 17:17 Vitals:: Vital Signs - 8 hr 07/25/17 19:16 Temp 97.9 F HR 74 RR 16 BP 134/77 Historian:: Patient Review:: Nurse's Note Reviewed, Old Chart Reviewed ED Review of Systems - Review of Systems General/Constitutional: No fever, No chills, No weight loss, No weakness, No diaphoresis, No edema, No loss of appetite Skin: No skin lesions, No rash, No bruising Head: No headache, No light-headedness Eyes: No loss of vision, No pain, No diplopia ENT: No earache, No nasal drainage, No sore throat, No tinnitus Neck: No neck pain, No swelling, No thyromegaly, No stiffness, No mass noted Cardio Vascular: No chest pain, No palpitations, No PND, No orthopnea, No edema Pulmonary: No SOB, No cough, No sputum, No wheezing GI: Nausea, Vomiting, No diarrhea, Pain, No melena, No hematochezia, No constipation, No hematemesis G/U: No dysuria, No frequency, No hematuria Musculoskeletal: No bone or joint pain, No back pain, No muscle pain Endocrine: No polyuria, No polydipsia Psychiatric: No prior psych history, No depression, No anxiety, No suicidal ideation Hematopoietic: No bruising, No lymphadenopathy Allergic/Immuno: No urticaria, No angioedema Neurological: No syncope, No focal symptoms, No weakness, No paresthesia, No headache, No seizure, No dizziness, No confusion, No vertigo ED Past Medical History - Past Medical History Obtainable: Yes Past Medical History: PUD/GERD, Other (GASTRITIS) Social History: Smoker, Alcohol, Illicit Drug Use, Single Psychiatricy History: Schizophrenia Medication: Reviewed Family Medical History - Family Member Mother History Unknown: Yes Ethnicity: Living Status: Hx Family Cancer: No Hx Family Coronary Artery Disease: No Hx Family Congestive Heart Failure: No Hx Family Hypertension: No Hx Family Stroke: No Hx Family Diabetes: No Hx Family Seizures: No Hx Family Dementia: No Hx Family AIDS: No Hx Family HIV: No Hx Family COPD: No Hx Family Hepatitis: No Hx Family Psychiatric Problems: No Hx Family Tuberculosis: No Father History Unknown: Yes Ethnicity: Living Status: Hx Family Cancer: No Hx Family Coronary Artery Disease: No Hx Family Congestive Heart Failure: No Hx Family Hypertension: No Hx Family Stroke: No Hx Family Diabetes: No Hx Family Seizures: No Hx Family Dementia: No Hx Family AIDS: No Hx Family HIV: No Hx Family COPD: No Hx Family Hepatitis: No Hx Family Psychiatric Problems: No Hx Family Tuberculosis: No ED Physical Exam - Physical Examination General/Constitutional: Awake, Well-developed, well-nourished, Alert, No distress, GCS 15, Non-toxic appearing, Ambulatory Head: Atraumatic Eyes: Lids, conjuctiva normal, PERRL, EOMI Skin: Nl inspection, No rash, No skin lesions, No ecchymosis, Well hydrated, No lymphadenopathy ENMT: External ears, nose nl, Nasal exam nl, Lips, teeth, gums nl Neck: Nontender, Full ROM w/o pain, No JVD, No nuchal rigidity, No bruit, No mass, No stridor Respiratory: Nl effort/Exclusion, Clear to Auscultation, No Wheeze/Rhonchi/Rales Cardio Vascular: RRR, No murmur, gallop, rubs, NL S1 S2 GI: No tenderness/rebounding/guarding (NO TENDERNESS OF THE EPIGASTRIC AREA), No organomegaly, No hernia, Normal BS's, Nondistended, No mass/bruits, No McBurney tenderness : No CVA tenderness Extremities: No tenderness or effusion, Full ROM, normal strength in all extremities, No edema, Normal digits & nails Neuro/Psych: Alert/oriented, DTR's symmetric, Normal sensory exam, Normal motor strength, Judgement/insight normal, Mood normal, Normal gait, No focal deficits Misc: Normal back, No paraspinal tenderness ED Labs/Radiology/EKG Results - Lab Results Results: Abnormal Lab Results 07/25/17 07/25/17 07/25/17 19:45 19:57 19:57 WBC 6.0 D RBC 4.57 Hgb 12.7 Hct 38.5 L MCV 84.3 MCH 27.7 MCHC Differential 32.9 RDW 16.0 Plt Count 162 MPV 9.1 Neutrophils % 59.2 Lymphocytes % 29.5 Monocytes % 6.7 Eosinophils % 3.0 Basophils % 1.6 PT 10.7 INR 1.03 PTT (Actin FS) 25.0 L Sodium Potassium Chloride Carbon Dioxide Anion Gap BUN Creatinine Est GFR ( Amer) Est GFR (Non-Af Amer) BUN/Creatinine Ratio Glucose Calcium Total Bilirubin AST ALT Alkaline Phosphatase Troponin I Total Protein Albumin Globulin Albumin/Globulin Ratio Urine Color YELLOW Urine Clarity CLEAR Urine pH 6.0 Ur Specific [place] 1.020 Urine Protein NEGATIVE Urine Glucose (UA) NEGATIVE Urine Ketones NEGATIVE Urine Blood NEGATIVE Urine Nitrate NEGATIVE Urine Bilirubin NEGATIVE Urine Urobilinogen 0.2 Ur Leukocyte Esterase NEGATIVE 07/25/17 07/25/17 19:57 19:57 WBC RBC Hgb Hct MCV MCH MCHC Differential RDW Plt Count MPV Neutrophils % Lymphocytes % Monocytes % Eosinophils % Basophils % PT INR PTT (Actin FS) Sodium 135 L Potassium 3.3 L Chloride 105 Carbon Dioxide 24.5 Anion Gap 8.8 BUN 9 Creatinine 1.0 Est GFR ( Amer) > 60.0 Est GFR (Non-Af Amer) > 60.0 BUN/Creatinine Ratio 9.0 Glucose 87 Calcium 8.4 L Total Bilirubin 0.3 AST 16 ALT 13 Alkaline Phosphatase 99 Troponin I < 0.01 L Total Protein 6.4 Albumin 3.4 L Globulin 3.0 Albumin/Globulin Ratio 1.1 Urine Color Urine Clarity Urine pH Ur Specific [place] Urine Protein Urine Glucose (UA) Urine Ketones Urine Blood Urine Nitrate Urine Bilirubin Urine Urobilinogen Ur Leukocyte Esterase ED Assessment - Assessment General Assessment: GASTRITIS ED Septic Shock - . Is Septic Shock (SBP<90, OR Lactate>4 mmol\L) present?: No - <6hrs of presentation: Vital Signs: Vital Signs - 8 hr 07/25/ 19:16 Temp 97.9 F HR 74 RR 16 BP 134/77 ED Reassessment (Disposition) - Reassessment Reassessment Condition:: Unchanged - Diagnosis Diagnosis:: GASTRITIS - Aftercare/Follow up Instructions Aftercare/Follow-Up Instructions:: Counseled pt regarding lab results/diagnosis & need follow up, Refer to Discharge Instructions, Counseled pt & family regarding lab results/diagnosis & need follow up - Patient Disposition Discharge/Transfer:: Home Condition at Disposition:: Improved ED Discharge Plan - Patient Disposition Admit/Discharge/Transfer: PT DISCHARGED HOME Condition at Disposition: Improved
[2017-07-25 20:09] LABS: % BASOPHILS 1.6 % (0.0-2.0); % LYMPHOCYTES 29.5 % (20.0-50.0); % MONOCYTES 6.7 % (2.0-10.0); % NEUTROPHILS 59.2 % (40.0-80.0); BASOPHILE ABSOLUTE 0.1 Th/cumm (0-0.2); EOSINOPHILE ABSOLUTE 0.2 Th/cmm (0.1-0.4); HEMATOCRIT 38.5 % (41.0-60); HEMOGLOBIN 12.7 gm/dL (12-16); LYMPHOCYTE ABSOLUTE 1.8 Th/cmm (1.5-3.0); MEAN CELL VOLUME 84.3 fl (80-99); MEAN CORPUSCULAR HEMOGLOBIN 27.7 pg (26.0-30.0); MEAN CORPUSCULAR HGB CONC 32.9 pg (28.0-36.0); MEAN PLATELET VOLUME 9.1 fl; MONOCYTE ABSOLUTE 0.4 Th/cmm (0.3-1.0); NEUTROPHILE ABSOLUTE 3.5 Th/cmm (1.8-8.0); PLATELET COUNT 162 Th/cmm (150-400); RED BLOOD COUNT 4.57 Mil/cmm (4.30-5.70)
[2017-07-25 20:21] LABS: INR 1.03 (0.5-1.4); PROTHROMBIN TIME (TEST) 10.7 SECONDS (9.5-11.5)
[2017-07-25 20:22] LABS: ALB/GLOB RATIO 1.1 (1.0-1.8); ALBUMIN 3.4 gm/dL (4.2-5.5); ALKALINE PHOSPHATASE 99 U/L (34-104); ANION GAP 8.8 (7.0-16.0); BILIRUBIN,TOTAL 0.3 mg/dL (0.3-1.0); BUN - UREA NITROGEN 9 mg/dL (7-25); CALCIUM SERUM 8.4 mg/dL (8.6-10.3); CARBON DIOXIDE 24.5 mEq/L (21.0-31.0); CHLORIDE 105 mEq/L (98-107); GFR AFRICAN-AMERICAN > 60.0 ml/min (>90); GFR NON AFRICAN-AMERICAN > 60.0 ml/min; GLUCOSE 87 mg/dL (70-105); POTASSIUM SERUM 3.3 mEq/L (3.5-5.1); SGOT 16 U/L (13-39); SGPT/ALT 13 U/L (7-52); SODIUM SERUM 135 mEq/L (136-145); TOTAL PROTEIN,SERUM 6.4 gm/dL (6.0-8.3)
[2017-07-25 20:23] LABS: URINE BILIRUBIN NEGATIVE (NEGATIVE); URINE BLOOD NEGATIVE (NEGATIVE); URINE GLUCOSE (UA) NEGATIVE (NEGATIVE); URINE KETONE NEGATIVE (NEGATIVE); URINE LEUKOCYTE ESTERASE NEGATIVE (NEGATIVE); URINE NITRATE NEGATIVE (NEGATIVE); URINE PROTEIN NEGATIVE (NEGATIVE); URINE UROBILINOGEN 0.2 E.U./dL (0.2 - 1.0)
[2017-07-25 20:26] LABS: URINE COLOR YELLOW
[2017-07-25 20:27] LABS: URINE CLARITY CLEAR (CLEAR)
[2017-07-25 20:32] LABS: URINE BACTERIA NONE SEEN /hpf (NONE SEEN); URINE EPITHELIAL CELLS NONE SEEN /lpf (FEW); URINE RBC 0-1 /hpf (0-5); URINE WBC 0-2 /hpf (0-5)
[2017-07-25 20:47] LABS: AMPHETAMINE URINE NEGATIVE (NEGATIVE); BARBITURATES URINE NEGATIVE (NEGATIVE); BENZODIAZEPINES QUAL URINE POSITIVE (NEGATIVE); CANNABINOID THC NEGATIVE (NEGATIVE); COCAINE METABOLITE QUAL URINE NEGATIVE (NEGATIVE); METHADONE URINE NEGATIVE (NEGATIVE); METHAMPHETAMINES QUAL URINE NEGATIVE (NEGATIVE); OPIATES (MORPHINE) QUAL. URINE NEGATIVE (NEGATIVE); PHENCYCLIDINE (PCP) URINE NEGATIVE (NEGATIVE); TRICYCLICS (TCA) QUAL. URINE NEGATIVE (NEGATIVE)
== END 2017-07-25 20:30 | disposition home or self-care (01) ==
LOC: ER 19:11
DX: K29.70 Gastritis, unspecified, without bleeding (principal); K21.9 Gastro-esophageal reflux disease without esophagitis; F17.200 Nicotine dependence, unspecified, uncomplicated; Z87.11 Personal history of peptic ulcer disease
CPT/HCPCS: 99284; 86592; 96372; 84484; 36415; 80307; 85025; 85610; 85730; 80053; 87040 ×2; 81001; J2405; Z7502

== ENCOUNTER 2017-07-28 15:13 | Emergency (ER) | payer MEDICAID ==
[2017-07-28] MEDS ORDERED: Sodium Chloride 0.9% 1,000 ML IV ONE (15:42)
--- NOTE | 2017-07-28 15:49 | ED Physician Chart ---
ED Chief Complaint/HPI - Patient Information Date Seen:: 07/28/17 Time Seen:: 15:30 Chief Complaint:: Abdominal Pain History of Present Illness:: onset x 3 days of intermittent, diffuse, crampy abdominal pain, N/V/D; hematemesis, and melena; pt denies trauma, H/As, neck pain, C/P, SOB, cough, hematochezia, A/C, fever, chills, or urinary s/s Allergies:: Allergies Allergy/AdvReac Type Severity Reaction Status Date / Time acetaminophen [From [place]] Allergy Verified 07/18/17 17:17 aspirin Allergy Verified 07/18/17 17:17 gabapentin Allergy Verified 07/18/17 17:17 hydrocodone [From [place]] Allergy Verified 07/18/17 17:17 ketorolac [From [place]ad[place]] Allergy Verified 07/18/17 17:17 meperidine [From [place]er[place]] Allergy Verified 07/20/17 11:29 promethazine Allergy Verified 07/18/17 17:17 tramadol Allergy Verified 07/18/17 17:17 Vitals:: Vital Signs - 8 hr 07/28/17 15:31 Temp 99.9 F HR 93 RR 17 BP 152/79 O2 Sat % 99 Historian:: Patient Review:: Nurse's Note Reviewed, Old Chart Reviewed ED Review of Systems - Review of Systems General/Constitutional: No fever, No chills, No weight loss, No weakness, No diaphoresis, No edema, No loss of appetite Skin: No skin lesions, No rash, No bruising Head: No headache, No light-headedness Eyes: No loss of vision, No pain, No diplopia ENT: No earache, No nasal drainage, No sore throat, No tinnitus Neck: No neck pain, No swelling, No thyromegaly, No stiffness, No mass noted Cardio Vascular: No chest pain, No palpitations, No PND, No orthopnea, No edema Pulmonary: No SOB, No cough, No sputum, No wheezing GI: Nausea, Vomiting, Diarrhea, Pain, Melena, No hematochezia, No constipation, Hematemesis G/U: No dysuria, No frequency, No hematuria, No nacturia Musculoskeletal: No bone or joint pain, No back pain, No muscle pain Endocrine: No polyuria, No polydipsia Psychiatric: No prior psych history, No depression, No anxiety, No suicidal ideation, No homicidal ideation, No auditory hallucination, No visual hallucination Hematopoietic: No bruising, No lymphadenopathy Allergic/Immuno: No urticaria, No angioedema Neurological: No syncope, No focal symptoms, No weakness, No paresthesia, No headache, No seizure, No dizziness, No confusion, No vertigo ED Past Medical History - Past Medical History Obtainable: Yes Past Medical History: HTN, Dyslipidemia, PUD/GERD, Arthritis Family History: HTN Social History: Smoker, Alcohol, No Drug Use, Single Surgical History: Appendectomy, Cholecystectomy Psychiatricy History: None Medication: Reviewed Family Medical History - Family Member Mother History Unknown: Yes Ethnicity: Living Status: Hx Family Cancer: No Hx Family Coronary Artery Disease: No Hx Family Congestive Heart Failure: No Hx Family Hypertension: No Hx Family Stroke: No Hx Family Diabetes: No Hx Family Seizures: No Hx Family Dementia: No Hx Family AIDS: No Hx Family HIV: No Hx Family COPD: No Hx Family Hepatitis: No Hx Family Psychiatric Problems: No Hx Family Tuberculosis: No Father History Unknown: Yes Ethnicity: Living Status: Hx Family Cancer: No Hx Family Coronary Artery Disease: No Hx Family Congestive Heart Failure: No Hx Family Hypertension: No Hx Family Stroke: No Hx Family Diabetes: No Hx Family Seizures: No Hx Family Dementia: No Hx Family AIDS: No Hx Family HIV: No Hx Family COPD: No Hx Family Hepatitis: No Hx Family Psychiatric Problems: No Hx Family Tuberculosis: No ED Physical Exam - Physical Examination General/Constitutional: Awake, Well-developed, well-nourished, Alert, No distress, GCS 15, Non-toxic appearing, Ambulatory Head: Atraumatic Eyes: Lids, conjuctiva normal, PERRL, EOMI Skin: Nl inspection, No rash, No skin lesions, No ecchymosis, Well hydrated, No lymphadenopathy ENMT: External ears, nose nl, TM canals nl, Nasal exam nl, Lips, teeth, gums nl , Oropharynx nl, Tonsils nl Neck: Nontender, Full ROM w/o pain, No JVD, No nuchal rigidity, No bruit, No mass, No stridor Respiratory: Nl effort/Exclusion, Clear to Auscultation, No Wheeze/Rhonchi/Rales Cardio Vascular: RRR, No murmur, gallop, rubs, NL S1 S2, Carotid/Femoral/Distal pulses equal bilaterally GI: No tenderness/rebounding/guarding, No organomegaly, No hernia, Normal BS's, Nondistended, No mass/bruits, No McBurney tenderness : No CVA tenderness Extremities: No tenderness or effusion, Full ROM, normal strength in all extremities, No edema, Normal digits & nails Neuro/Psych: Alert/oriented, DTR's symmetric, Normal sensory exam, Normal motor strength, Judgement/insight normal, Mood normal, Normal gait, No focal deficits Misc: Normal back, No paraspinal tenderness ED Labs/Radiology/EKG Results - Lab Results Comments:: H/H: 11.7/35.5; Albumin: 3.3 - EKG Interpretations EKG Time:: 15:50 Rate & Rhythm: 79; NSR Comments:: ATIYA; non-specific st-t changes ED Septic Shock - . Is Septic Shock (SBP<90, OR Lactate>4 mmol\L) present?: No - <6hrs of presentation: Vital Signs: Vital Signs - 8 hr 07/28/17 15:31 Temp 99.9 F HR 93 RR 17 BP 152/79 O2 Sat % 99 ED Reassessment (Disposition) - Reassessment Reassessment Condition:: Improved - Patient Disposition Discharge/Transfer:: Against Medical Advice
[2017-07-28 15:59] LABS: % BASOPHILS 1.1 % (0.0-2.0); % EOSINOPHILS 2.1 % (0.0-5.0); % LYMPHOCYTES 22.4 % (20.0-50.0); % NEUTROPHILS 67.4 % (40.0-80.0); BASOPHILE ABSOLUTE 0.1 Th/cumm (0-0.2); EOSINOPHILE ABSOLUTE 0.1 Th/cmm (0.1-0.4); HEMATOCRIT 35.5 % (41.0-60); HEMOGLOBIN 11.7 gm/dL (12-16); LYMPHOCYTE ABSOLUTE 1.3 Th/cmm (1.5-3.0); MEAN CORPUSCULAR HEMOGLOBIN 27.6 pg (26.0-30.0); MEAN CORPUSCULAR HGB CONC 32.9 pg (28.0-36.0); MEAN PLATELET VOLUME 8.6 fl; MONOCYTE ABSOLUTE 0.4 Th/cmm (0.3-1.0); NEUTROPHILE ABSOLUTE 3.7 Th/cmm (1.8-8.0); PLATELET COUNT 138 Th/cmm (150-400); RED BLOOD COUNT 4.23 Mil/cmm (4.30-5.70); RED CELL DISTRIBUTION WIDTH 15.8 % (11.5-20.0); WHITE BLOOD COUNT 5.6 Th/cmm (4.8-10.8)
[2017-07-28 16:09] LABS: INR 1.06 (0.5-1.4)
[2017-07-28 16:13] LABS: URINE MICROSCOPIC INDICATED? YES; URINE SOURCE CLEAN C
[2017-07-28 16:16] LABS: URINE BILIRUBIN NEGATIVE (NEGATIVE); URINE BLOOD NEGATIVE (NEGATIVE); URINE GLUCOSE (UA) NEGATIVE (NEGATIVE); URINE KETONE NEGATIVE (NEGATIVE); URINE LEUKOCYTE ESTERASE NEGATIVE (NEGATIVE); URINE NITRATE NEGATIVE (NEGATIVE); URINE PROTEIN NEGATIVE (NEGATIVE); URINE UROBILINOGEN 0.2 E.U./dL (0.2 - 1.0)
[2017-07-28 16:19] LABS: URINE CLARITY CLEAR (CLEAR); URINE COLOR YELLOW
[2017-07-28 16:20] LABS: URINE BACTERIA NONE SEEN /hpf (NONE SEEN); URINE EPITHELIAL CELLS NONE SEEN /lpf (FEW); URINE RBC NONE SEEN /hpf (0-5); URINE WBC NONE SEEN /hpf (0-5)
[2017-07-28 16:21] LABS: ALB/GLOB RATIO 1.1 (1.0-1.8); ALBUMIN 3.3 gm/dL (4.2-5.5); ALKALINE PHOSPHATASE 101 U/L (34-104); AMYLASE SERUM 45 U/L (29-103); ANION GAP 7.8 (7.0-16.0); BILIRUBIN,TOTAL 0.3 mg/dL (0.3-1.0); BUN - UREA NITROGEN 7 mg/dL (7-25); CALCIUM SERUM 8.6 mg/dL (8.6-10.3); CARBON DIOXIDE 27.8 mEq/L (21.0-31.0); CHLORIDE 106 mEq/L (98-107); CHOLESTEROL 90 mg/dL (<200); CREATININE - SERUM 1.1 mg/dL (0.7-1.3); CREATININE KINASE 198 U/L (30-223); GFR AFRICAN-AMERICAN > 60.0 ml/min (>90); GFR NON AFRICAN-AMERICAN > 60.0 ml/min; GLUCOSE 75 mg/dL (70-105); HDL -HIGH DENSITY LIPOPROTEIN 31 mg/dL (23-92); LIPASE 42 U/L (11-82); POTASSIUM SERUM 3.6 mEq/L (3.5-5.1); SGOT 15 U/L (13-39); SGPT/ALT 10 U/L (7-52); SODIUM SERUM 138 mEq/L (136-145); TOTAL PROTEIN,SERUM 6.2 gm/dL (6.0-8.3); TRIGLYCERIDES 118 mg/dL (<150)
[2017-07-28] MEDS ORDERED: INSULIN HUMAN REGULAR 100 UNITS/ML UNIT ONE (16:43)
== END 2017-07-28 18:00 | disposition left against medical advice (07) ==
LOC: ER 15:13
DX: R10.9 Unspecified abdominal pain (principal); I10 Essential (primary) hypertension; E78.5 Hyperlipidemia, unspecified; K21.9 Gastro-esophageal reflux disease without esophagitis; Z87.11 Personal history of peptic ulcer disease; Z53.21 Procedure and treatment not carried out due to patient leaving prior to being seen by health care provider
CPT/HCPCS: 99285; 96361; 96374; 94760; 93005; 84484; 83880; 36415; 85025; 85610; 81001; 82150; 82550; 83690; 80053; 80061; C9113; J2405; J1815; J7030

== ENCOUNTER 2017-08-01 16:26 | Emergency (ER) | payer MEDICAID ==
--- NOTE | 2017-08-02 01:22 | ER Physician Documentation ---
DATE OF SERVICE: EMERGENCY ROOM EVALUATION AND TREATMENT The patient is allergic to TYLENOL, ASPIRIN, GABAPENTIN, HYDROCODONE, KETOROLAC, and more; but please note that the patient has been taking as and when he gets it to tramadol and [place] and except for morphine, he is allergic to almost everything according to the nurse statement. The patient, when I asked him the history, he says he is having pain, he is having nausea, he is having diarrhea. When I asked him does he have any diarrhea now, he says no, it was many days ago. HISTORY OF PRESENT ILLNESS: Other than some back pain and leg pain and generalized aches and pains, he has no complaints. He is a frequent flyer to this hospital Emergency Room for getting some medications and things like that and painkiller medication, narcotics, etc. REVIEW OF SYSTEMS: Essentially benign and negative. Twelve-point review of systems are reviewed, every time he comes in essentially it is: EYES: Does not have any complaints. No double vision. No discoloration in the eyes. No conjunctivitis. CENTRAL NERVOUS SYSTEM: No stroke. No TIA. No brain tumor. CARDIAC SANDOVAL: No angina pectoris, myocardial infarction, or atherosclerotic heart disease. PULMONARY: No history of pneumonia, TB, pulmonary embolism, lung cancer, aspergillosis, etc. BONES AND JOINTS: Minor degenerative joint disease. ABDOMEN: The patient has no definite diarrhea, but it is just by history, that he is telling he is very comfortable sitting in the chair. The patient does not have any nausea or vomiting, but he is telling that he has nausea and vomiting that is just by history, but there is no documentation ever obtained. History of present illness essentially that he has all these complaints. PAST MEDICAL HISTORY: Is that he has hypertension, GERD, vertigo, high cholesterol, and panic disorder. He had gallbladder surgery and appendicectomy done. He has diabetes mellitus. ALLERGIES: HE IS ALLERGIC TO TYLENOL, ASPIRIN, GABAPENTIN, HYDROCODONE, THAT HAS HAD KETOROLAC, MEPERIDINE THAT IS DEMEROL, PROMETHAZINE, AND TRAMADOL. MEDICATIONS: Home medications that he takes includes prochlorperazine 10 mg three times a day, pantoprazole or Protonix 40 mg daily, ondansetron or Zofran 4 mg p.r.n. under the tongue, Klonopin 2 mg three times a day, atorvastatin calcium 20 mg p.o. at bedtime, lisinopril 10 mg daily, and aspirin 81 mg daily. PHYSICAL EXAMINATION: GENERAL: The patient appears to be awake, alert, oriented, and not in any acute cardiorespiratory distress. Overall, general exam is benign and negative. CIRCULATORY SYSTEM: Appears to be normal. Pulses appears to be normal. No edema. No cyanosis. No petechia. No ecchymosis. CHEST: Clear. Trachea is being central. Fairly good air entry in both lungs. There are no rales or rhonchi noted. There is no evidence of any bronchial breathing. ABDOMEN: Soft, benign, and negative. CENTRAL NERVOUS SYSTEM: Within normal limits. GENITOURINARY: No burning, frequency, or dysuria. CARDIAC SANDOVAL: PMI is located in the fifth intercostal space in the midclavicular line. No surgical scar. No pacemakers. S1 and S2 are normal. 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 He gives the same symptoms every time he comes here. He comes every few days. Every nurse starters knows him. The patient's temperature was 99 degrees, pulse of 92, respirations 18, blood pressure 131/69, and 96%. Height of 5 feet 10 inches and weighing 195 pounds. Pneumonia vaccination is not taken. Drinking, he does have occasionally; but smoking 1 pack of cigarettes a day. FINAL DIAGNOSES: Is that the patient is in all probability a drug seeker and has multiple symptoms and then because he wants high dose morphine and more of narcotics. The patient is allergic to GABAPENTIN, IBUPROFEN, PROMETHAZINE, TORADOL, TRAMADOL, and [place]. He has some back pain. Full code status. Other diagnoses includes faking that he has pain and faking he has diarrhea. He will be given a pill of Zofran under the tongue 4 mg. His other diagnoses are hypertension, gastroesophageal reflux disease, vertigo, cholesterol, pain disorder, gallbladder surgery, and appendicectomy. The patient will be discharged for home. The patient should go and see his doctor for further medical treatment. At the present moment, I have nothing more to offer for him as he is a drug seeker that I know him and he wants all the time narcotics and painkillers, and one cannot keep on giving that. So, the patient will be going home, he said he agrees. In a heartbeat, he agreed that he wants to go home. JOB# [id number]
== END 2017-08-01 17:43 | disposition home or self-care (01) ==
LOC: ER 16:26
DX: M54.5 Low back pain (principal); F11.10 Opioid abuse, uncomplicated; I10 Essential (primary) hypertension; K21.9 Gastro-esophageal reflux disease without esophagitis; E78.5 Hyperlipidemia, unspecified; E11.9 Type 2 diabetes mellitus without complications
CPT/HCPCS: 99282; Q0162

== ENCOUNTER 2017-08-02 15:48 | Emergency (ER) | payer MEDICAID ==
--- NOTE | 2017-08-02 16:09 | ED Physician Chart ---
ED Chief Complaint/HPI - Patient Information Date Seen:: 08/02/17 Time Seen:: 16:04 Chief Complaint:: Abdominal pain, nausea and vomiting History of Present Illness:: 56 yo male had abdominal pain, nausea and vomiting for 2 days. Took pantoprazle and mylanta without relief. Allergies:: Allergies Allergy/AdvReac Type Severity Reaction Status Date / Time acetaminophen [From [place]] Allergy Verified 08/01/17 17:00 aspirin Allergy Verified 08/01/17 17:00 gabapentin Allergy Verified 08/01/17 17:00 hydrocodone [From [place]] Allergy Verified 08/01/17 17:00 ketorolac [From Torad[place]] Allergy Verified 08/01/17 17:00 meperidine [From [place]er[place]] Allergy Verified 08/01/17 17:00 promethazine Allergy Verified 08/01/17 17:00 tramadol Allergy Verified 08/01/17 17:00 Vitals:: Vital Signs - 8 hr 08/02/17 15:59 Temp 99.7 F HR 91 RR 16 BP 126/51 O2 Sat % 100 ED Review of Systems - Review of Systems General/Constitutional: No fever Skin: No skin lesions Head: No headache ENT: Other (dental caries) Neck: No neck pain Cardio Vascular: No chest pain Pulmonary: No SOB GI: Nausea, Vomiting Musculoskeletal: Back pain ED Past Medical History - Past Medical History Past Medical History: HTN, DM, Dyslipidemia, PUD/GERD, Other (vertigo) Social History: Smoker, No Alcohol, No Drug Use Surgical History: Appendectomy, Cholecystectomy Family Medical History - Family Member Mother History Unknown: Yes Ethnicity: Living Status: Hx Family Cancer: No Hx Family Coronary Artery Disease: No Hx Family Congestive Heart Failure: No Hx Family Hypertension: No Hx Family Stroke: No Hx Family Diabetes: No Hx Family Seizures: No Hx Family Dementia: No Hx Family AIDS: No Hx Family HIV: No Hx Family COPD: No Hx Family Hepatitis: No Hx Family Psychiatric Problems: No Hx Family Tuberculosis: No Father History Unknown: Yes Ethnicity: Living Status: Hx Family Cancer: No Hx Family Coronary Artery Disease: No Hx Family Congestive Heart Failure: No Hx Family Hypertension: No Hx Family Stroke: No Hx Family Diabetes: No Hx Family Seizures: No Hx Family Dementia: No Hx Family AIDS: No Hx Family HIV: No Hx Family COPD: No Hx Family Hepatitis: No Hx Family Psychiatric Problems: No Hx Family Tuberculosis: No ED Physical Exam - Physical Examination General/Constitutional: Awake, Alert Head: Atraumatic Eyes: PERRL Skin: No skin lesions Other ENMT comments:: multiple dental caries Neck: No nuchal rigidity Respiratory: No Wheeze/Rhonchi/Rales Cardio Vascular: RRR, No murmur, gallop, rubs, NL S1 S2 Other GI comments:: epigastric tenderness Extremities: No edema Other Neuro/Psych comments:: AO x 3 ED Assessment - Assessment General Assessment: Abdominal pain Assessment/Comments:: CBC, CMP Pantoprazole 40mg PO Patient eloped without signing AMA ED Septic Shock - . Is Septic Shock (SBP<90, OR Lactate>4 mmol\L) present?: No - <6hrs of presentation: Vital Signs: Vital Signs - 8 hr 08/02/17 15:59 Temp 99.7 F HR 91 RR 16 BP 126/51 O2 Sat % 100 ED Reassessment (Disposition) - Reassessment Reassessment Condition:: Improved - Patient Disposition Discharge/Transfer:: [place]/[facility]
[2017-08-02 16:31] LABS: % EOSINOPHILS 2.2 % (0.0-5.0); % MONOCYTES 7.3 % (2.0-10.0); % NEUTROPHILS 65.5 % (40.0-80.0); BASOPHILE ABSOLUTE 0.1 Th/cumm (0-0.2); EOSINOPHILE ABSOLUTE 0.2 Th/cmm (0.1-0.4); HEMATOCRIT 37.8 % (41.0-60); HEMOGLOBIN 12.6 gm/dL (12-16); LYMPHOCYTE ABSOLUTE 1.7 Th/cmm (1.5-3.0); MEAN CORPUSCULAR HEMOGLOBIN 27.7 pg (26.0-30.0); MEAN CORPUSCULAR HGB CONC 33.4 pg (28.0-36.0); MEAN PLATELET VOLUME 8.4 fl; MONOCYTE ABSOLUTE 0.5 Th/cmm (0.3-1.0); NEUTROPHILE ABSOLUTE 4.4 Th/cmm (1.8-8.0); PLATELET COUNT 160 Th/cmm (150-400); RED BLOOD COUNT 4.55 Mil/cmm (4.30-5.70); RED CELL DISTRIBUTION WIDTH 15.3 % (11.5-20.0)
[2017-08-02 16:32] LABS: WHITE BLOOD COUNT 6.9 Th/cmm (4.8-10.8)
[2017-08-02 16:47] LABS: ALB/GLOB RATIO 1.4 (1.0-1.8); ALBUMIN 3.7 gm/dL (4.2-5.5); ALKALINE PHOSPHATASE 90 U/L (34-104); ANION GAP 7.7 (7.0-16.0); BILIRUBIN,TOTAL 0.3 mg/dL (0.3-1.0); BUN - UREA NITROGEN 12 mg/dL (7-25); CALCIUM SERUM 8.8 mg/dL (8.6-10.3); CHLORIDE 107 mEq/L (98-107); CREATININE - SERUM 1.2 mg/dL (0.7-1.3); GFR AFRICAN-AMERICAN > 60.0 ml/min (>90); GFR NON AFRICAN-AMERICAN > 60.0 ml/min; GLUCOSE 135 mg/dL (70-105); POTASSIUM SERUM 3.7 mEq/L (3.5-5.1); SGOT 14 U/L (13-39); SGPT/ALT 11 U/L (7-52); SODIUM SERUM 138 mEq/L (136-145); TOTAL PROTEIN,SERUM 6.3 gm/dL (6.0-8.3)
[2017-08-02] MEDS ORDERED: Pantoprazole 40 mg EC Tab PO STA (17:12)
[2017-08-02] MEDS ORDERED: Pantoprazole 40 mg EC Tab PO ONE (17:13)
== END 2017-08-02 17:30 | disposition left against medical advice (07) ==
LOC: ER 15:48
DX: R10.9 Unspecified abdominal pain (principal); I10 Essential (primary) hypertension; E11.9 Type 2 diabetes mellitus without complications; E78.5 Hyperlipidemia, unspecified; K21.9 Gastro-esophageal reflux disease without esophagitis; F17.200 Nicotine dependence, unspecified, uncomplicated; Z87.11 Personal history of peptic ulcer disease
CPT/HCPCS: 36415-UA; 80053-TC; 85025-TC; Z7502; Z7610

== ENCOUNTER 2017-08-04 12:28 | Emergency (ER) | payer MEDICAID | END 2017-08-04 14:10 | disposition left against medical advice (07) | LOC: ER 12:28 | DX: R11.10 Vomiting, unspecified (principal); Z53.21 Procedure and treatment not carried out due to patient leaving prior to being seen by health care provider ==

== ENCOUNTER 2017-08-09 23:32 | Emergency (ER) | payer MEDICAID | END 2017-08-10 | disposition left against medical advice (07) | LOC: ER 23:32 | DX: S09.90XA Unspecified injury of head, initial encounter (principal); R19.7 Diarrhea, unspecified; X58.XXXA Exposure to other specified factors, initial encounter; Y93.89 Activity, other specified; Y92.89 Other specified places as the place of occurrence of the external cause; Y99.8 Other external cause status; Z53.21 Procedure and treatment not carried out due to patient leaving prior to being seen by health care provider ==

== ENCOUNTER 2017-08-10 13:11 | Emergency (ER) | payer MEDICAID ==
[2017-08-10] MEDS ORDERED: Sodium Chloride 0.9% 2,000 ML IV ONE (13:32)
--- NOTE | 2017-08-10 14:11 | ED Physician Chart ---
ED Chief Complaint/HPI - Patient Information Date Seen:: 08/10/17 Time Seen:: 13:30 Chief Complaint:: MULTIPLE injuries from falling down stairs History of Present Illness:: THE PATIENT STATES THAT HE FELL DOWN 15-20 STAIRS 5 DAYS AGO SUSTAINING INJURIES TO HIS BACK WITH LOSS OF CONSCIOUSNESS LOC FOR 3-5 MINUTES, INJURY TO HIS NECK AND LOW BACK. SINCE THIS EPISODE, THE PATIENT HAS HAD NAUSEA, REPEATED EPISODES OF VOMITING AND VERTIGO. Patient is well known to me and has a history of drug-seeking behavior. Allergies:: Allergies Allergy/AdvReac Type Severity Reaction Status Date / Time acetaminophen [From [place]] Allergy Verified 08/01/17 17:00 aspirin Allergy Verified 08/01/17 17:00 gabapentin Allergy Verified 08/01/17 17:00 hydrocodone [From [place]] Allergy Verified 08/01/17 17:00 ketorolac [From Toradol] Allergy Verified 08/01/17 17:00 meperidine [From Demerol] Allergy Verified 08/01/17 17:00 promethazine Allergy Verified 08/01/17 17:00 tramadol Allergy Verified 08/01/17 17:00 Vitals:: Vital Signs - 8 hr 08/10/17 13:43 Temp 99.6 F HR 89 RR 18 BP 109/52 O2 Sat % 98 ED Review of Systems - Review of Systems General/Constitutional: No fever, No chills, No weight loss, No weakness, No diaphoresis, No loss of appetite Skin: No skin lesions Head: Headache, Light headed, No light-headedness Eyes: No loss of vision, No pain, No diplopia ENT: No earache, No sore throat, No tinnitus Neck: Neck pain, No thyromegaly, Stiffness, No mass noted Cardio Vascular: No chest pain, No orthopnea, No edema Pulmonary: No SOB, No cough, No sputum GI: Nausea, Vomiting, No diarrhea, No hematochezia, No constipation G/U: No dysuria, No frequency, No hematuria Musculoskeletal: Bone or joint pain, Back pain ( HIS CURRENT BACK PAIN IS AN EXACERBATION OF CHRONIC LOWER BACK PAIN. H), Muscle pain Psychiatric: Depression, No suicidal ideation Allergic/Immuno: No urticaria, No angioedema Neurological: No syncope ( The patient states he blacked out from my head injury and awoke at the bottom of the stairs. H), No focal symptoms, No weakness ( Chronic weakness in his left lower extremity. H), No paresthesia ( Paresthesias in his left lower extremity.) ED Past Medical History - Past Medical History Past Medical History: HTN Surgical History: Appendectomy, Cholecystectomy Psychiatricy History: Depression Family Medical History - Family Member Mother History Unknown: Yes Ethnicity: Living Status: Hx Family Cancer: No Hx Family Coronary Artery Disease: No Hx Family Congestive Heart Failure: No Hx Family Hypertension: No Hx Family Stroke: No Hx Family Diabetes: No Hx Family Seizures: No Hx Family Dementia: No Hx Family AIDS: No Hx Family HIV: No Hx Family COPD: No Hx Family Hepatitis: No Hx Family Psychiatric Problems: No Hx Family Tuberculosis: No Father History Unknown: Yes Ethnicity: Living Status: Hx Family Cancer: No Hx Family Coronary Artery Disease: No Hx Family Congestive Heart Failure: No Hx Family Hypertension: No Hx Family Stroke: No Hx Family Diabetes: No Hx Family Seizures: No Hx Family Dementia: No Hx Family AIDS: No Hx Family HIV: No Hx Family COPD: No Hx Family Hepatitis: No Hx Family Psychiatric Problems: No Hx Family Tuberculosis: No ED Physical Exam - Physical Examination General/Constitutional: Awake, Well-developed, well-nourished, Alert, Non-toxic appearing, Ambulatory Head: Atraumatic ( There was no visible or palpable evidence of recent head trauma. No lacerations or abrasions. H) Eyes: Lids, conjuctiva normal, PERRL, EOMI Skin: No skin lesions, No ecchymosis, Well hydrated ENMT: External ears, nose nl, Lips, teeth, gums nl ( Multiple decayed and broken teeth.), Oropharynx nl Other Neck comments:: The patient had diffuse tenderness to palpation of the posterior cervical spine. No point tenderness was present on palpation of the C-spine. There is diffuse paraspinous muscle spasm on both the right and the left of the cervical spine. H Respiratory: Nl effort/Exclusion, Clear to Auscultation, No Wheeze/Rhonchi/Rales Cardio Vascular: RRR, NL S1 S2 Other Cardio Vascular comments:: Peripheral pulses were adequate in all extremities. H GI: No tenderness/rebounding/guarding, No organomegaly, Nondistended, No mass/ bruits, No McBurney tenderness Other GI comments:: Rectal examination deferred at my discretion. : No CVA tenderness Other Extremities comments:: Mild tenderness to palpation and limited range of motion in the area of the left ankle. H Neuro/Psych: Alert/oriented, Normal sensory exam, Normal motor strength, Normal gait, No focal deficits ( The patient has diffuse tenderness in the region of the lumbar spine. Diffuse muscular tenderness to both the right and the left in the region of the lumbar spine. H) ED Labs/Radiology/EKG Results - Lab Results Results: Laboratory Tests 08/10/17 08/10/17 14:32 14:32 WBC 6.0 RBC 4.57 Hgb 12.6 Hct 37.7 L MCV 82.5 MCH 27.6 MCHC Differential 33.5 RDW 16.0 Plt Count 185 MPV 9.0 Neutrophils % 70.0 Lymphocytes % 20.4 Monocytes % 7.6 Eosinophils % 1.8 Basophils % 0.2 Sodium 137 Potassium 3.5 Chloride 109 H Carbon Dioxide 26.2 Anion Gap 5.3 L BUN 9 Creatinine 1.1 Est GFR ( Amer) > 60.0 Est GFR (Non-Af Amer) > 60.0 BUN/Creatinine Ratio 8.2 Glucose 129 H Calcium 8.9 Total Bilirubin 0.4 AST 19 ALT 14 Alkaline Phosphatase 96 Total Protein 6.9 Albumin 3.8 L Globulin 3.1 Albumin/Globulin Ratio 1.2 LABORATORY INTERPRETATION: THE CBC WAS UNREMARKABLE WITH NO LEUKOCYTOSIS, NO ANEMIA AND NORMAL PLATELET COUNT. METABOLIC STUDIES ALL ELECTROLYTES WERE WITHIN THE NORMAL RANGE. RENAL FUNCTION WAS NORMAL. LIVER FUNCTION TESTS WERE ALL WITHIN NORMAL PARAMETERS. RESULTS OF THE CT STUDIES WERE NEGATIVE FOR ANY EVIDENCE OF ACUTE HEAD INJURY, ACUTE CERVICAL SPINE INJURY, AND ACUTE LUMBAR SPINAL FRACTURES OR DISLOCATIONS. H ED Assessment - Assessment General Assessment: CASE SUMMARY: THIS 56-YEAR-OLD MALE IS WELL KNOWN TO THE EMERGENCY DEPARTMENT AND PRESENTED WITH A HISTORY OF HAVING FALLEN DOWN 15 TO 20 STAIRS FIVE DAYS PRIOR TO THIS ADMISSION. HE COMPLAINED OF HEAD AND NECK PAIN AND PAIN IN THE LOW BACK. PATIENT ALSO WAS HAVING NAUSEA AND VOMITING AND VERTIGO. THESE ARE CHRONIC COMPLAINTS FOR THE PATIENT. HE WAS TREATED WITH IV ZOFRAN FOR NAUSEA AND WAS HYDRATED WITH NORMAL SALINE. AFTER TREATMENT WITH THESE ABOVE MODALITIES THE PATIENT STATED HE WANTED TO LEAVE THE HOSPITAL AGAINST MEDICAL ADVICE. THE RISKS OF INTRACRANIAL BLEEDING WERE EXPLAINED TO THE PATIENT AND HE DECIDED TO LEAVE. HE WAS AMBULATORY AT THE TIME OF DISCHARGE WITH A STEADY GAIT. H MDM DDX FOR FALL DOWN MULTIPLE STAIRS: NOT INTRACRANIAL HEMORRHAGE BASED ON the NEGATIVE CT OF THE HEAD. NOT CERVICAL SPINE BASED ON CT SCAN OF THE C- SPINE. NOT LUMBAR SPINAL FRACTURE BASED ON NEGATIVE CT OF L-SPINE. ED Septic Shock - . Is Septic Shock (SBP<90, OR Lactate>4 mmol\L) present?: No - <6hrs of presentation: Vital Signs: Vital Signs - 8 hr // 13:43 Temp 99.6 F HR 89 RR 18 BP 109/52 O2 Sat % 98 ED Reassessment (Disposition) - Reassessment Reassessment Condition:: Improved - Diagnosis Diagnosis:: STATUS-POST CHOLECYSTECTOMY, AND APPENDECTOMY. DRUG SEEKING BEHAVIOR ED Discharge Plan - Patient Disposition Admit/Discharge/Transfer: AGAINST MEDICAL ADVICE Condition at Disposition: Stable
--- NOTE | 2017-08-10 14:31 | Diagnostic Imaging Report ---
Head CT without intravenous contrast Indication: Trauma Comparison: None Technique: Axial images were obtained from the vertex to the skull base without IV contrast. Coronal reconstructions were made. Total DLP: 752, CTDI37.5 FINDINGS: Exam is limited due to motion. Mild atrophy is noted. The ventricles and basal cisterns are patent. The Manjarrez-white matter differentiation is preserved. Dilated Virchow [place] space versus less likely old left basal ganglia lacunar infarct is noted. Assessment for skull fracture is limited due to motion. No gross skull fracture is identified. No significant focal soft tissue swelling. The paranasal sinuses are clear. IMPRESSION: Limited exam due to motion. No evidence of acute intracranial hemorrhage. Dilated Virchow-[place] space versus less likely old left basal ganglia lacunar infarct. Mild atrophy.
--- NOTE | 2017-08-10 14:35 | Diagnostic Imaging Report ---
CT cervical spine without IV contrast HISTORY: Trauma COMPARISON: None Technique: Axial images were obtained from the skull base to the upper thoracic spine without IV contrast. Multiplanar reconstructions were made. Total DLP: 540, CTDI 22 FINDINGS: Images of the cervical spine obtained without contrast demonstrate no evidence of acute fracture or subluxation. Vhxc-[id number] degenerative changes are seen most pronounced at C5/C6 and C6/C7's with disc osteophyte complexes at these levels including 2 3-mm posterior disc osteophyte spurring at C5/C6 without evidence of significant spinal canal narrowing. No prevertebral soft tissue swelling. The lung apices are clear. IMPRESSION: No evidence of an acute fracture or subluxation. Jpnb-fw-[id number] degenerative changes.
--- NOTE | 2017-08-10 14:40 | Diagnostic Imaging Report ---
CT lumbar spine without IV contrast HISTORY: Fall COMPARISON: CT lumbar spine on 09/27/2014 Technique: Axial images were obtained from the lower thoracic spine to the upper sacrum without IV contrast. Reconstructions were made. total DLP: 1144, CTDI40.8 Findings: Images of the lumbar spine obtained without contrast demonstrate evidence of chronic bilateral pars defects at L5/S1 with 4 mm anterolisthesis. Moderate to advanced disc space loss of height at this level with vacuum disc phenomena and 2 mm posterior disc osteophyte spur. Additional generalized mild degenerative changes are noted. Degenerative changes of the SI joints are noted. Evaluation demonstrates atherosclerotic vascular disease. There is evidence of prior cholecystectomy. IMPRESSION: Chronic appearing pars defects at L5/S1 with 4 mm anterolisthesis at this level and degenerative changes at this level. Otherwise no acute fracture identified Additional mild degenerative changes. Evidence of prior cholecystectomy.
[2017-08-10 14:54] LABS: ALB/GLOB RATIO 1.2 (1.0-1.8); ALBUMIN 3.8 gm/dL (4.2-5.5); ALKALINE PHOSPHATASE 96 U/L (34-104); ANION GAP 5.3 (7.0-16.0); BILIRUBIN,TOTAL 0.4 mg/dL (0.3-1.0); BUN - UREA NITROGEN 9 mg/dL (7-25); CALCIUM SERUM 8.9 mg/dL (8.6-10.3); CARBON DIOXIDE 26.2 mEq/L (21.0-31.0); CHLORIDE 109 mEq/L (98-107); CREATININE - SERUM 1.1 mg/dL (0.7-1.3); GFR AFRICAN-AMERICAN > 60.0 ml/min (>90); GFR NON AFRICAN-AMERICAN > 60.0 ml/min; GLUCOSE 129 mg/dL (70-105); POTASSIUM SERUM 3.5 mEq/L (3.5-5.1); SGOT 19 U/L (13-39); SGPT/ALT 14 U/L (7-52); SODIUM SERUM 137 mEq/L (136-145); TOTAL PROTEIN,SERUM 6.9 gm/dL (6.0-8.3)
[2017-08-10 14:55] LABS: % BASOPHILS 0.2 % (0.0-2.0); % EOSINOPHILS 1.8 % (0.0-5.0); % LYMPHOCYTES 20.4 % (20.0-50.0); % MONOCYTES 7.6 % (2.0-10.0); EOSINOPHILE ABSOLUTE 0.1 Th/cmm (0.1-0.4); HEMATOCRIT 37.7 % (41.0-60); HEMOGLOBIN 12.6 gm/dL (12-16); LYMPHOCYTE ABSOLUTE 1.2 Th/cmm (1.5-3.0); MEAN CELL VOLUME 82.5 fl (80-99); MEAN CORPUSCULAR HEMOGLOBIN 27.6 pg (26.0-30.0); MEAN CORPUSCULAR HGB CONC 33.5 pg (28.0-36.0); MONOCYTE ABSOLUTE 0.5 Th/cmm (0.3-1.0); NEUTROPHILE ABSOLUTE 4.2 Th/cmm (1.8-8.0); PLATELET COUNT 185 Th/cmm (150-400); RED BLOOD COUNT 4.57 Mil/cmm (4.30-5.70)
== END 2017-08-10 16:45 | disposition left against medical advice (07) ==
LOC: ER 13:11
DX: S39.92XA Unspecified injury of lower back, initial encounter (principal); S19.9XXA Unspecified injury of neck, initial encounter; R11.2 Nausea with vomiting, unspecified; I10 Essential (primary) hypertension; Z76.5 Malingerer [conscious simulation]; Z90.49 Acquired absence of other specified parts of digestive tract; W19.XXXA Unspecified fall, initial encounter; Y93.89 Activity, other specified; Y92.89 Other specified places as the place of occurrence of the external cause; Y99.8 Other external cause status
CPT/HCPCS: 99285; 96372; 96374; 70450; 72125; 72131; 36415; 85025; 80053; J1885; J2405; J7030

== ENCOUNTER 2017-08-15 10:44 | Emergency (ER) | payer MEDICAID ==
--- NOTE | 2017-08-15 11:46 | ED Physician Chart ---
ED Chief Complaint/HPI - Patient Information Date Seen:: 08/15/17 Time Seen:: 11:20 Chief Complaint:: HEADACHE WITH NAUSEA AND VOMITING SINCE YESTERDAY History of Present Illness:: PT WITH SEVERE HEADACHE WITH NAUSEA AND VOMITING 3 TIMES. HEADACHE HAD A SUDDEN ONSET AND THE PT WENT TO [facility]. HE HAD A CT HEAD SCAN AND THEY TOLD HIM THE CT SCAN SHOWED NO EVIDENCE OF AN IC BLEED.THE PT DENIES ANY RECENT HEAD TRAUMA. THE PT HAS A HISTORY OF VERTIGO AND ASSOCIATED NAUSEA. PT HAD A CT OF HIS HEAD AND NECK ON 08/10/2017 AT THIS FACILITY AND IT WAS NEGATIVE FOR ANY HEAD TRAUMA OR NECK TRAUMA. Allergies:: Allergies Allergy/AdvReac Type Severity Reaction Status Date / Time acetaminophen [From [place]] Allergy Verified 08/15/17 10:57 aspirin Allergy Verified 08/15/17 10:57 gabapentin Allergy Verified 08/15/17 10:57 hydrocodone [From [place]] Allergy Verified 08/15/17 10:57 ketorolac [From Toradol] Allergy Verified 08/15/17 10:57 meperidine [From [place]erol] Allergy Verified 08/15/17 10:57 promethazine Allergy Verified 08/15/17 10:57 tramadol Allergy Verified 08/15/17 10:57 HEADACHE SINCE YESTERDAYS Vitals:: Vital Signs - 8 hr 08/15/17 11:01 Temp 98.5 F HR 62 RR 18 BP 117/69 O2 Sat % 98 ED Review of Systems - Review of Systems General/Constitutional: No fever, No chills, Weight loss, No weight loss, No diaphoresis, No edema, No loss of appetite Head: Headache, No light-headedness Eyes: No loss of vision, No diplopia ENT: No earache, No sore throat Neck: Swelling, Stiffness, Mass noted Cardio Vascular: No chest pain Pulmonary: No SOB, No sputum GI: Nausea, Vomiting, No diarrhea, No pain, No hematochezia, No hematemesis G/U: No dysuria, No frequency, No hematuria Musculoskeletal: Back pain Psychiatric: No depression, No suicidal ideation Hematopoietic: No bruising, No lymphadenopathy Allergic/Immuno: No urticaria, No angioedema Neurological: No syncope, Weakness (IN LLE), Vertigo ED Past Medical History - Past Medical History Past Medical History: HTN, DM Social History: Non Smoker, Alcohol, No Drug Use, Single Employment:: UNEMPLOYED Surgical History: Appendectomy, Cholecystectomy Family Medical History - Family Member Mother History Unknown: Yes Ethnicity: Living Status: Hx Family Cancer: No Hx Family Coronary Artery Disease: No Hx Family Congestive Heart Failure: No Hx Family Hypertension: No Hx Family Stroke: No Hx Family Diabetes: Yes Hx Family Seizures: No Hx Family Dementia: No Hx Family AIDS: No Hx Family HIV: No Hx Family COPD: No Hx Family Hepatitis: No Hx Family Psychiatric Problems: No Hx Family Tuberculosis: No Father History Unknown: Yes Ethnicity: Living Status: Hx Family Cancer: No Hx Family Coronary Artery Disease: No Hx Family Congestive Heart Failure: No Hx Family Hypertension: No Hx Family Stroke: No Hx Family Diabetes: No Hx Family Seizures: No Hx Family Dementia: No Hx Family AIDS: No Hx Family HIV: No Hx Family COPD: No Hx Family Hepatitis: No Hx Family Psychiatric Problems: No Hx Family Tuberculosis: No ED Physical Exam - Physical Examination General/Constitutional: Well-developed, well-nourished, Alert Other Gen/Cons comments:: 10/10 PAIN IN HEAD. Head: Atraumatic Eyes: Lids, conjuctiva normal, PERRL, EOMI Skin: Nl inspection, No rash, No skin lesions, No ecchymosis, Well hydrated Other Skin comments:: PT HAS A LARGE 2.5 BY2.0 CM NODE AT THE RIGHT MANDIBULAR DAYANARA Other ENMT comments:: VERY POOR DENTAL HYGIENE WITH MIWWINT AND ABCESSED TEETH. NO INDURATION OR SWELLING IN THE SUB MENTEL AREA. Neck: Nontender, No JVD, No nuchal rigidity (RONCHI IN TH4 RT BASILAR REGION.), No stridor GI: No tenderness/rebounding/guarding, No organomegaly, No hernia, Nondistended , No mass/bruits, No McBurney tenderness Other GI comments:: RECTAL EXAM DEFERRED : No CVA tenderness Other Extremities comments:: MOVES ALL 4 EXTM Neuro/Psych: Mood normal, Normal gait Other Neuro/Psych comments:: PATCHY AREAS OF DECREASED SENSATION TO LIGHT TOUCH WHICH ARE OLD. ED Labs/Radiology/EKG Results - Lab Results Results: NO LAB OR RADIGRAPHIC STUDIES INDICATED ED Assessment - Assessment General Assessment: CASE SUMMARY: THIS PT IS WELL KNOWN TO ME AND MEDICAL STAF, COMING TO THE ED MULTIPLE TIMES PER WEEK. PT ALWAYS HAS 10/10 PAIN AND IS ALLERGIC TO NON- NARCOTIC PAIN MEDICATIONS. PT WITH PERSISTENT REQUESTS FOR NARCOTIC PAIN MEDICAGTIONS. ORDERS WERE WRITTEN FOR IV NORMAL SALINE AND ZOFRAN FOR HIS NAUSEA AND VOMITING. THE PATIENT ELOPED PRIOR TO RECEIVING THE MEDICATIONS. MDM DDX HEADACHE: NOT IC BLEEDING BASED ON NEG CT HEAD DONE YESTERDAY AFTER ONSET OF THE HEADACHE. NOT TRAUMATIC BRAIN INJURY BASED ON HISTORY AND EXAM. NOT MENINGITIS DUE TO HISTORY AND EXAM. ED Septic Shock - . Is Septic Shock (SBP<90, OR Lactate>4 mmol\L) present?: No - <6hrs of presentation: Vital Signs: Vital Signs - 8 hr 08/15/17 11:01 Temp 98.5 F HR 62 RR 18 BP 117/69 O2 Sat % 98 ED Reassessment (Disposition) - Reassessment Reassessment Condition:: Unchanged - Aftercare/Follow up Instructions Notes:: DRUG SEEKING BEHAVIOR - Patient Disposition Discharge/Transfer:: Elope/AWOL ED Discharge Plan - Patient Disposition Admit/Discharge/Transfer: PATIENT ELOPED Condition at Disposition: Unchanged
== END 2017-08-15 12:08 | disposition left against medical advice (07) ==
LOC: ER 10:44
DX: R51 Headache (principal); R11.2 Nausea with vomiting, unspecified
CPT/HCPCS: Z7502

== ENCOUNTER 2017-08-16 10:14 | Emergency (ER) | payer MEDICAID ==
[2017-08-16 10:36] LABS: % BASOPHILS 0.8 % (0.0-2.0); % EOSINOPHILS 1.8 % (0.0-5.0); % LYMPHOCYTES 19.5 % (20.0-50.0); % MONOCYTES 4.3 % (2.0-10.0); % NEUTROPHILS 73.6 % (40.0-80.0); BASOPHILE ABSOLUTE 0.1 Th/cumm (0-0.2); EOSINOPHILE ABSOLUTE 0.1 Th/cmm (0.1-0.4); HEMATOCRIT 36.9 % (41.0-60); HEMOGLOBIN 12.3 gm/dL (12-16); LYMPHOCYTE ABSOLUTE 1.4 Th/cmm (1.5-3.0); MEAN CORPUSCULAR HEMOGLOBIN 27.6 pg (26.0-30.0); MEAN CORPUSCULAR HGB CONC 33.2 pg (28.0-36.0); MEAN PLATELET VOLUME 8.8 fl; MONOCYTE ABSOLUTE 0.3 Th/cmm (0.3-1.0); NEUTROPHILE ABSOLUTE 5.4 Th/cmm (1.8-8.0); PLATELET COUNT 201 Th/cmm (150-400); RED BLOOD COUNT 4.45 Mil/cmm (4.30-5.70); RED CELL DISTRIBUTION WIDTH 16.1 % (11.5-20.0); WHITE BLOOD COUNT 7.3 Th/cmm (4.8-10.8)
[2017-08-16 10:49] LABS: ANION GAP 7.5 (7.0-16.0); BUN - UREA NITROGEN 11 mg/dL (7-25); CALCIUM SERUM 9.1 mg/dL (8.6-10.3); CARBON DIOXIDE 26.4 mEq/L (21.0-31.0); CHLORIDE 106 mEq/L (98-107); CREATININE - SERUM 1.2 mg/dL (0.7-1.3); GFR AFRICAN-AMERICAN > 60.0 ml/min (>90); GFR NON AFRICAN-AMERICAN > 60.0 ml/min; GLUCOSE 78 mg/dL (70-105); POTASSIUM SERUM 3.9 mEq/L (3.5-5.1); SODIUM SERUM 136 mEq/L (136-145)
--- NOTE | 2017-08-16 15:20 | ER Physician Documentation ---
DATE OF SERVICE: 08/16/2017 ADDENDUM LABORATORY DATA: White count of 7.3, hemoglobin 12.3, hematocrit 36.9, all within normal limits. Differential is normal. Neutrophils are 73.6, lymphocytes use of her electrolytes are all normal. Electrolytes are normal and sodium 136, potassium 3.9, chloride 106, CO2 26.4, BUN is 11, creatinine 1.2, glucose 78, calcium 9.1. I do not find anything acutely wrong with the patient. MEDICAL DECISION MAKING: The patient can be discharged home and he can take some Pepto-Bismol [id number] should he have any diarrhea well. Otherwise, there is no acute major disease detected. FINAL DIAGNOSIS: The patient is complaining of multiple complaints like headache and diarrhea and body ache, etc. All the lab workups are normal. Physical exam is benign and negative. JOB# [id number]
--- NOTE | 2017-08-16 17:08 | ED Physician Chart ---
ED Chief Complaint/HPI - Patient Information Allergies:: Allergies Allergy/AdvReac Type Severity Reaction Status Date / Time acetaminophen [From [place]] Allergy Verified 08/15/17 10:57 aspirin Allergy Verified 08/15/17 10:57 gabapentin Allergy Verified 08/15/17 10:57 hydrocodone [From [place]] Allergy Verified 08/15/17 10:57 ketorolac [From Toradol] Allergy Verified 08/15/17 10:57 meperidine [From Demerol] Allergy Verified 08/15/17 10:57 promethazine Allergy Verified 08/15/17 10:57 tramadol Allergy Verified 08/15/17 10:57 Vitals:: Vital Signs - 8 hr 08/16/17 08/16/17 10:21 11:18 Temp 99.6 F 97.4 F HR 75 64 RR 16 16 BP 112/59 135/56 O2 Sat % 95 99 Family Medical History - Family Member Mother History Unknown: Yes Ethnicity: Living Status: Hx Family Cancer: No Hx Family Coronary Artery Disease: No Hx Family Congestive Heart Failure: No Hx Family Hypertension: No Hx Family Stroke: No Hx Family Diabetes: Yes Hx Family Seizures: No Hx Family Dementia: No Hx Family AIDS: No Hx Family HIV: No Hx Family COPD: No Hx Family Hepatitis: No Hx Family Psychiatric Problems: No Hx Family Tuberculosis: No Father History Unknown: Yes Ethnicity: Living Status: Hx Family Cancer: No Hx Family Coronary Artery Disease: No Hx Family Congestive Heart Failure: No Hx Family Hypertension: No Hx Family Stroke: No Hx Family Diabetes: No Hx Family Seizures: No Hx Family Dementia: No Hx Family AIDS: No Hx Family HIV: No Hx Family COPD: No Hx Family Hepatitis: No Hx Family Psychiatric Problems: No Hx Family Tuberculosis: No ED Labs/Radiology/EKG Results - Lab Results Results: Laboratory Tests 08/16/17 08/16/17 10:28 10:28 WBC 7.3 RBC 4.45 Hgb 12.3 Hct 36.9 L MCV 83.0 MCH 27.6 MCHC Differential 33.2 RDW 16.1 Plt Count 201 MPV 8.8 Neutrophils % 73.6 Lymphocytes % 19.5 L Monocytes % 4.3 Eosinophils % 1.8 Basophils % 0.8 Sodium 136 Potassium 3.9 Chloride 106 Carbon Dioxide 26.4 Anion Gap 7.5 BUN 11 Creatinine 1.2 Est GFR ( Amer) > 60.0 Est GFR (Non-Af Amer) > 60.0 BUN/Creatinine Ratio 9.2 Glucose 78 Calcium 9.1 ED Septic Shock - <6hrs of presentation: Vital Signs: Vital Signs - 8 hr 08/16/17 08/16/17 10:21 11:18 Temp 99.6 F 97.4 F HR 75 64 RR 16 16 BP 112/59 135/56 O2 Sat % 95 99 ED Discharge Plan - Patient Disposition Admit/Discharge/Transfer: PT DISCHARGED HOME Condition at Disposition: Stable Instructions: Diarrhea, Musculoskeletal Pain Additional Instructions: DISCHARGE: Patient given medication reconciliation form and D/C instructions. Patient verbalized understanding. MD discussed with patient the results and treatment provided. Ambulatory with steady gait for discharge to home. Patient in stable condition. Patient educated on pain management. All belongings sent with patient.
--- NOTE | 2017-08-16 18:01 | ER Physician Documentation ---
DATE OF SERVICE: 08/16/2017 A 56-year-old male, full code, allergic to TYLENOL, ASPIRIN, GABAPENTIN, HYDROCODONE, KETOROLAC. Just to start that one should note that in the past month or so, the patient has showed up Emergency Room quite a number of times with multiple complaints and again today, the patient has come with headache, nausea, vertigo, diarrhea, not feeling good. Generalized body ache and all different vague complaints, that he is complaining. HISTORY OF PRESENT ILLNESS: Essentially the same, where he says he has coffee ground diarrhea. He says the diarrhea is semisolid in type, not had any of this complaint before. First time he is having this. REVIEW OF SYSTEMS: A 12-point is essentially, the patient gets occasional anxiety, panic, shows up multiple times. He is not working. He is having all the time comes here to get some pain medication or pain shots, etc. and then he goes away on his own. EYES: No complaints of double vision, blurring, blindness. CENTRAL NERVOUS SYSTEM: No history of TIA, stroke, encephalitis, or meningitis. PULMONARY: No history of pneumonia, TB, pulmonary embolism, COPD, emphysema, bronchitis. ENDOCRINE: No history of diabetes mellitus, hyper or hypothyroidism. BONES AND JOINTS: No complaints. GASTROINTESTINAL: Complaints of diarrhea today, 4 times. HEART: The patient has no chest pain, no myocardial infarction, no rheumatic fever, no valvular heart disease, no pericardial disease. GENITOURINARY: No burning, frequency, dysuria. PHYSICAL EXAMINATION: GENERAL: The patient appears to be awake, alert, oriented, not in any acute distress of any kind. Comfortable, sitting in the bed, on the gurney, no diarrhea is noted. HEENT: Conjunctivae are pink, sclerae white. HEENT is normal. Jugular venous pressure is normal. No cyanosis, petechia, ecchymosis. CHEST: Clear. No rales, rhonchi or bronchial wheezing. ABDOMEN: Soft, benign and negative. CENTRAL NERVOUS SYSTEM: Normal. He has anxiety, gets panic attacks, psychiatric problems. He shows up here and there in the ER quite a number of times without any apparent diagnosis or particular illness. FINAL DIAGNOSES: Multiple complaints of vertigo, headaches, abdominal pain, diarrhea, etc. We will give the patient some Imodium and Antivert, metronidazole, and some Pepto-Bismol and get some CBC, BMP done. If they are normal, then the patient can be discharged to home. He has a history of surgery, not sure what kind of. Appendicectomy and cholecystectomy surgery was done. He has a history of anxiety, vertigo and panic attacks. Unknown if he is having any panic attacks. His vital signs show temperature 99.6, pulse 75, respirations 16, blood pressure 112/54, saturation 95%. He has taken flu vaccination. He has taken tetanus vaccination. He does smoke, in the past whether he smoked marijuana or not is not known. His surgery includes appendicectomy and cholecystectomy. Once we get the labs, after looking at the labs, he will be discharged home. JOB# [id number]
== END 2017-08-16 11:24 | disposition home or self-care (01) ==
LOC: ER 10:14
DX: R19.7 Diarrhea, unspecified (principal); M79.1 Myalgia; R51 Headache; R42 Dizziness and giddiness
CPT/HCPCS: 36415-UA; 80048-TC; 85025-TC; Z7502

== ENCOUNTER 2017-08-21 18:48 | Emergency (ER) | payer MEDICAID ==
--- NOTE | 2017-08-21 21:43 | ED Physician Chart ---
ED Chief Complaint/HPI - Patient Information Date Seen:: 08/21/17 Time Seen:: 21:43 Chief Complaint:: Low back pain and pain in BLE Allergies:: Allergies Allergy/AdvReac Type Severity Reaction Status Date / Time acetaminophen [From [place]] Allergy Verified 08/21/17 19:48 aspirin Allergy Verified 08/21/17 19:48 gabapentin Allergy Verified 08/21/17 19:48 hydrocodone [From [place]] Allergy Verified 08/21/17 19:48 ketorolac [From Toradol] Allergy Verified 08/21/17 19:48 meperidine [From Demerol] Allergy Verified 08/21/17 19:48 promethazine Allergy Verified 08/21/17 19:48 tramadol Allergy Verified 08/21/17 19:48 Vitals:: Vital Signs - 8 hr 08/21/17 19:15 Temp 98.1 F HR 69 RR 18 BP 117/69 O2 Sat % 98 Family Medical History - Family Member Mother History Unknown: Yes Ethnicity: Living Status: Hx Family Cancer: No Hx Family Coronary Artery Disease: No Hx Family Congestive Heart Failure: No Hx Family Hypertension: No Hx Family Stroke: No Hx Family Diabetes: Yes Hx Family Seizures: No Hx Family Dementia: No Hx Family AIDS: No Hx Family HIV: No Hx Family COPD: No Hx Family Hepatitis: No Hx Family Psychiatric Problems: No Hx Family Tuberculosis: No Father History Unknown: Yes Ethnicity: Living Status: Hx Family Cancer: No Hx Family Coronary Artery Disease: No Hx Family Congestive Heart Failure: No Hx Family Hypertension: No Hx Family Stroke: No Hx Family Diabetes: No Hx Family Seizures: No Hx Family Dementia: No Hx Family AIDS: No Hx Family HIV: No Hx Family COPD: No Hx Family Hepatitis: No Hx Family Psychiatric Problems: No Hx Family Tuberculosis: No ED Septic Shock - <6hrs of presentation: Vital Signs: Vital Signs - 8 hr 08/21/17 19:15 Temp 98.1 F HR 69 RR 18 BP 117/69 O2 Sat % 98
== END 2017-08-21 22:10 | disposition home or self-care (01) ==
LOC: ER 18:48
DX: M54.5 Low back pain (principal); M79.604 Pain in right leg; M79.605 Pain in left leg
CPT/HCPCS: Z7502

== ENCOUNTER 2017-08-22 16:55 | Emergency (ER) | payer MEDICAID ==
--- NOTE | 2017-08-22 17:35 | ED Physician Chart ---
ED Chief Complaint/HPI - Patient Information Date Seen:: 08/22/17 Time Seen:: 17:25 Chief Complaint:: PATIENT HAD ONSET OF PAIN IN THE LEFT BUTTOCKS REGION TODAY. History of Present Illness:: This 56-year-old male presents complaining of pain in the left sciatic region which radiates down into the left lower extremity. He has had patchy decreased sensation in the left leg since I first met him. He complains of pain in the left lower extremity which impairs his ability to walk. Patient admits to infrequent incontinence of urine but is never complained of urinary retention. Patient has a history of anxiety GERD, hypertension, and diabetes. THE PATIENT RATES THE PAIN A 8/10 SEVERITY. THE PATIENT WAS SEEN YESTERDAY FOR THE SAME COMPLAINT THING GIVEN AN ORAL LIQUID PAIN MEDICATION THAT UPSET THE PATIENT STOMACH. HE DEVELOPED NAUSEA AND HAD ONE EPISODE OF COFFEE GROUND EMESIS. Allergies:: Allergies Allergy/AdvReac Type Severity Reaction Status Date / Time acetaminophen [From [place]] Allergy Verified 08/21/17 19:48 aspirin Allergy Verified 08/21/17 19:48 gabapentin Allergy Verified 08/21/17 19:48 hydrocodone [From [place]] Allergy Verified 08/21/17 19:48 ketorolac [From Toradol] Allergy Verified 08/21/17 19:48 meperidine [From Demerol] Allergy Verified 08/21/17 19:48 promethazine Allergy Verified 08/21/17 19:48 tramadol Allergy Verified 08/21/17 19:48 Vitals:: Vital Signs - 8 hr 08/22/17 17:01 Temp 98.6 F HR 97 RR 17 BP 129/58 O2 Sat % 98 ED Review of Systems - Review of Systems General/Constitutional: No fever, No chills, Weakness ( CHRONIC WEAKNESS IN THE LEFT LOWER EXTREMITY.), No diaphoresis, No loss of appetite Skin: No skin lesions, No rash, No bruising Head: No headache, Other ( THE PATIENT HAS FREQUENT HEADACHES IN HIS HEAD TO THE THREE CT SCANS OF THE HEAD IN AUGUST.) Eyes: No loss of vision, No pain, No diplopia ( THE PATIENT'S EYE DISCOMFORT HAS RESOLVED SINCE THE LAST TIME I SAW HIM AND EVALUATED HIM FOR HEADACHE.) ENT: No earache, Nasal drainage, No nasal drainage, No sore throat, No tinnitus Neck: No swelling, No stiffness, No mass noted Cardio Vascular: No chest pain, No palpitations, No edema Pulmonary: No SOB, No cough, No wheezing GI: Nausea ( THE PATIENT'S NAUSEA IS ASSOCIATED WITH VERTICAL WHICH IS A CHRONIC PROBLEM FOR THIS PATIENT.), Vomiting, No hematemesis ( EMESIS OF COFFEE GROUND MATERIAL YESTERDAY. NO SUCH EPISODE TODAY.) ED Past Medical History - Past Medical History Past Medical History: HTN, DM Family History: HTN, Other ( DIABETES) Social History: Non Smoker, No Alcohol, No Drug Use ( LIVES WITH HIS SON. UNEMPLOYED.), Family Medical History - Family Member Mother History Unknown: Yes Ethnicity: Living Status: Hx Family Cancer: No Hx Family Coronary Artery Disease: No Hx Family Congestive Heart Failure: No Hx Family Hypertension: No Hx Family Stroke: No Hx Family Diabetes: Yes Hx Family Seizures: No Hx Family Dementia: No Hx Family AIDS: No Hx Family HIV: No Hx Family COPD: No Hx Family Hepatitis: No Hx Family Psychiatric Problems: No Hx Family Tuberculosis: No Father History Unknown: Yes Ethnicity: Living Status: Hx Family Cancer: No Hx Family Coronary Artery Disease: No Hx Family Congestive Heart Failure: No Hx Family Hypertension: No Hx Family Stroke: No Hx Family Diabetes: No Hx Family Seizures: No Hx Family Dementia: No Hx Family AIDS: No Hx Family HIV: No Hx Family COPD: No Hx Family Hepatitis: No Hx Family Psychiatric Problems: No Hx Family Tuberculosis: No ED Labs/Radiology/EKG Results - Lab Results Results: ED Provider: Teo Stockton Status: Discharge Time Seen by Provider: Condition: Triaged At: 08/22/17 17:01 Emergency Discharge Date/Time: 08/22/17 18:45 Emergency Discharge Disposition: PT DISCHARGED HOME Clinical Impression Emergency Discharge Comment: Discharge Intervention Last Done Instructions: Back Pain, Adult, [id number] Laboratory Tests 08/22/17 18:10 WBC 6.9 RBC 5.44 Hgb 14.5 Hct 45.5 MCV 83.6 MCH 26.7 MCHC Differential 31.9 RDW 16.0 Plt Count 206 MPV 9.0 Neutrophils (Manual) 93 H Lymphocytes 6 L Basophils 1 HEMOGLOBIN OF 14.5 ARGUES AGAINST ANY SIGNIFICANT BLOOD LOSS DUE TO G.I. BLEEDING. ED Assessment - Assessment General Assessment: CASE SUMMARY: THIS 56-YEAR-OLD MALE IS A HISTORY OF CHRONIC LOW BACK PAIN, LOWER ABDOMINAL PAIN, AND SEVERE HEADACHES. HE IS ALLERGIC TO ALMOST ALL NONNARCOTIC PAIN MEDICATIONS BUT HE DOES TOLERATE DILAUDID AND ORAL NORCO I HAVE HAD MULTIPLE PRIOR DISCUSSIONS WITH THE PATIENT REGARDING HIS NEED FOR NARCOTIC PAIN MEDICATION. THE PATIENT ASKED IF THERE COULD BE SOME OTHER MODALITY THAT HASN'T BEEN TRIED, SUCH A MUSCLE RELAXANT. I AGREED WITH THE PATIENT TO GO AHEAD AND GIVE HIM A PRESCRIPTION FOR SOMA 350 MG WITH THE USUAL PRECAUTIONS. I ALSO CHECKED THE PATIENT'S HEMOGLOBIN LEVEL BECAUSE OF HIS HISTORY OF COFFEE GROUND HEMATEMESIS YESTERDAY. PATIENT'S HEMOGLOBIN LEVEL REMAINS CONSTANT IN THE MID-14 RANGE. THE PATIENT WAS DISCHARGED WITH A PRESCRIPTION FOR SOMA HE WAS PICKED UP AND TAKEN HOME BY HIS SON.. MDM DDX SCIATIC DISTRIBUTION OF PAIN IN THE LT BUTTOCK AND HIP REGION: NOT EPIDURAL ABSCESS BASED ON THE PATIENT'S HISTORY, PHYSICAL EXAMINATION AND DURATION OF SYMPTOMS. NOT AAA BASED ON PRIOR RECENT CT SCANS OF THE ABDOMEN. NOT BASED ON RELATIVELY RECENT UA RESULTS.. ED Septic Shock - . Is Septic Shock (SBP<90, OR Lactate>4 mmol\L) present?: No - <6hrs of presentation: Vital Signs: Vital Signs - 8 hr 08/22/17 17:01 Temp 98.6 F HR 97 RR 17 BP 129/58 O2 Sat % 98 ED Reassessment (Disposition) - Reassessment Reassessment Condition:: Improved - Diagnosis Diagnosis:: CHRONIC LOW BACK PAIN AND HEADACHES. 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
[2017-08-22 18:18] LABS: HEMATOCRIT 45.5 % (41.0-60); HEMOGLOBIN 14.5 gm/dL (12-16); LYMPHOCYTE ABSOLUTE 0.4 Th/cmm (1.5-3.0); MANUAL DIFF REQUIRED? YES; MEAN CELL VOLUME 83.6 fl (80-99); MEAN CORPUSCULAR HEMOGLOBIN 26.7 pg (26.0-30.0); MEAN CORPUSCULAR HGB CONC 31.9 pg (28.0-36.0); NEUTROPHILE ABSOLUTE 6.5 Th/cmm (1.8-8.0); PLATELET COUNT 206 Th/cmm (150-400); RED BLOOD COUNT 5.44 Mil/cmm (4.30-5.70); WHITE BLOOD COUNT 6.9 Th/cmm (4.8-10.8)
[2017-08-22 18:55] LABS: BASOPHIL 1 % (0-3); LYMPHOCYTE 6 % (20-50); NEUTROPHILS 93 % (40-80)
== END 2017-08-22 18:45 | disposition home or self-care (01) ==
LOC: ER 16:55
DX: G89.29 Other chronic pain (principal); M54.5 Low back pain; R51 Headache; E11.9 Type 2 diabetes mellitus without complications; I10 Essential (primary) hypertension; Z76.5 Malingerer [conscious simulation]
CPT/HCPCS: 36415-UA; 85007-TC; 85025-TC; 85027-TC; Z7502

== ENCOUNTER 2017-08-29 07:34 | Emergency (ER) | payer MEDICAID ==
--- NOTE | 2017-08-29 08:30 | ED Physician Chart ---
ED Chief Complaint/HPI - Patient Information Date Seen:: 08/29/17 Time Seen:: 08:30 Chief Complaint:: Low back pain History of Present Illness:: 56 yo male had low back pain with pain radiating to left lower extremity. Allergies:: Allergies Allergy/AdvReac Type Severity Reaction Status Date / Time acetaminophen [From [place]] Allergy Verified 08/21/17 19:48 aspirin Allergy Verified 08/21/17 19:48 gabapentin Allergy Verified 08/21/17 19:48 hydrocodone [From [place]] Allergy Verified 08/21/17 19:48 ketorolac [From Toradol] Allergy Verified 08/21/17 19:48 meperidine [From [place]erol] Allergy Verified 08/21/17 19:48 promethazine Allergy Verified 08/21/17 19:48 tramadol Allergy Verified 08/21/17 19:48 Vitals:: Vital Signs - 8 hr 08/29/17 07:36 Temp 98.2 F HR 83 RR 19 BP 110/55 O2 Sat % 100 Family Medical History - Family Member Mother History Unknown: Yes Ethnicity: Living Status: Hx Family Cancer: No Hx Family Coronary Artery Disease: No Hx Family Congestive Heart Failure: No Hx Family Hypertension: No Hx Family Stroke: No Hx Family Diabetes: Yes Hx Family Seizures: No Hx Family Dementia: No Hx Family AIDS: No Hx Family HIV: No Hx Family COPD: No Hx Family Hepatitis: No Hx Family Psychiatric Problems: No Hx Family Tuberculosis: No Father History Unknown: Yes Ethnicity: Living Status: Hx Family Cancer: No Hx Family Coronary Artery Disease: No Hx Family Congestive Heart Failure: No Hx Family Hypertension: No Hx Family Stroke: No Hx Family Diabetes: No Hx Family Seizures: No Hx Family Dementia: No Hx Family AIDS: No Hx Family HIV: No Hx Family COPD: No Hx Family Hepatitis: No Hx Family Psychiatric Problems: No Hx Family Tuberculosis: No ED Septic Shock - <6hrs of presentation: Vital Signs: Vital Signs - 8 hr 08/29/17 07:36 Temp 98.2 F HR 83 RR 19 BP 110/55 O2 Sat % 100
== END 2017-08-29 09:15 | disposition home or self-care (01) ==
LOC: ER 07:34
DX: M54.5 Low back pain (principal)
CPT/HCPCS: Z7502

== ENCOUNTER 2017-08-31 13:52 | Emergency (ER) | payer MEDICAID ==
[2017-08-31] MEDS ORDERED: Sodium Chloride 0.9% 1,000 ML IV ONE (14:22)
--- NOTE | 2017-08-31 14:22 | ED Physician Chart ---
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; pt admited to intermittent MS type LE pain which resolved upon ER arrival; pt denies paresthesias, gait changes, weakness, dizziness, vertigo, visual changes, or back pain Allergies:: Allergies Allergy/AdvReac Type Severity Reaction Status Date / Time acetaminophen [From [place]] Allergy Verified 08/21/17 19:48 aspirin Allergy Verified 08/21/17 19:48 carisoprodol [From [place]] Allergy Verified 08/31/17 14:01 gabapentin Allergy Verified 08/21/17 19:48 hydrocodone [From [place]] Allergy Verified 08/21/17 19:48 ketorolac [From Toradol] Allergy Verified 08/21/17 19:48 meperidine [From Demerol] Allergy Verified 08/21/17 19:48 promethazine Allergy Verified 08/21/17 19:48 tramadol Allergy Verified 08/21/17 19:48 Vitals:: Vital Signs - 8 hr 08/31/17 14:03 Temp 99.7 F HR 105 RR 22 BP 111/54 O2 Sat % 96 Historian:: Patient Review:: Nurse's Note Reviewed ED Review of Systems - Review of Systems General/Constitutional: No fever, No chills, No weight loss, No weakness, No diaphoresis, No edema, No loss of appetite Skin: No skin lesions, No rash, No bruising Head: No headache, No light-headedness Eyes: No loss of vision, No pain, No diplopia ENT: No earache, No nasal drainage, No sore throat, No tinnitus Neck: No neck pain, No swelling, No thyromegaly, No stiffness, No mass noted Cardio Vascular: No chest pain, No palpitations, No PND, No orthopnea, No edema Pulmonary: No SOB, No cough, No sputum, No wheezing GI: Nausea, Vomiting, Diarrhea, Pain, No melena, No hematochezia, No constipation, No hematemesis G/U: No dysuria, No frequency, No hematuria, No nacturia Musculoskeletal: No bone or joint pain, No back pain, No muscle pain Endocrine: No polyuria, No polydipsia Psychiatric: No prior psych history, No depression, No anxiety, No suicidal ideation, No homicidal ideation, No auditory hallucination, No visual hallucination Hematopoietic: No bruising, No lymphadenopathy Allergic/Immuno: No urticaria, No angioedema Neurological: No syncope, No focal symptoms, No weakness, No paresthesia, No headache, No seizure, No dizziness, No confusion, No vertigo ED Past Medical History - Past Medical History Obtainable: Yes Past Medical History: HTN, Dyslipidemia, ESRD Family History: HTN Social History: Non Smoker, No Alcohol, No Drug Use, Single Surgical History: None Psychiatricy History: None Medication: Reviewed Family Medical History - Family Member Mother History Unknown: Yes Ethnicity: Living Status: Hx Family Cancer: No Hx Family Coronary Artery Disease: No Hx Family Congestive Heart Failure: No Hx Family Hypertension: No Hx Family Stroke: No Hx Family Diabetes: Yes Hx Family Seizures: No Hx Family Dementia: No Hx Family AIDS: No Hx Family HIV: No Hx Family COPD: No Hx Family Hepatitis: No Hx Family Psychiatric Problems: No Hx Family Tuberculosis: No Father History Unknown: Yes Ethnicity: Living Status: Hx Family Cancer: No Hx Family Coronary Artery Disease: No Hx Family Congestive Heart Failure: No Hx Family Hypertension: No Hx Family Stroke: No Hx Family Diabetes: No Hx Family Seizures: No Hx Family Dementia: No Hx Family AIDS: No Hx Family HIV: No Hx Family COPD: No Hx Family Hepatitis: No Hx Family Psychiatric Problems: No Hx Family Tuberculosis: No ED Physical Exam - Physical Examination General/Constitutional: Awake, Well-developed, well-nourished, Alert, No distress, GCS 15, Non-toxic appearing, Ambulatory Head: Atraumatic Eyes: Lids, conjuctiva normal, PERRL, EOMI Skin: Nl inspection, No rash, No skin lesions, No ecchymosis, Well hydrated, No lymphadenopathy ENMT: External ears, nose nl, TM canals nl, Nasal exam nl, Lips, teeth, gums nl , Oropharynx nl, Tonsils nl Neck: Nontender, Full ROM w/o pain, No JVD, No nuchal rigidity, No bruit, No mass, No stridor Other Neck comments:: supple; no meningeal signs; no cervical tenderness; no bruits Respiratory: Nl effort/Exclusion, Clear to Auscultation, No Wheeze/Rhonchi/Rales Cardio Vascular: RRR, No murmur, gallop, rubs, NL S1 S2, Carotid/Femoral/Distal pulses equal bilaterally GI: No tenderness/rebounding/guarding, No organomegaly, No hernia, Normal BS's, Nondistended, No mass/bruits, No McBurney tenderness, Rectum exam nl Other GI comments:: no pulsatile masses : No CVA tenderness Extremities: No tenderness or effusion, Full ROM, normal strength in all extremities, No edema, Normal digits & nails Other Extremities comments:: no calf tenderness; - Raffy's sign; no evidence of DVT Neuro/Psych: Alert/oriented, DTR's symmetric, Normal sensory exam, Normal motor strength, Judgement/insight normal, Mood normal, Normal gait, No focal deficits Misc: Normal back, No paraspinal tenderness ED Labs/Radiology/EKG Results - Lab Results Comments:: K+: 3.4 - Radiology Results Comments:: NAD - EKG Interpretations EKG Time:: 14:34 Rate & Rhythm: 94; NSR Comments:: ATIYA; non-specific st-t changes ED Septic Shock - . Is Septic Shock (SBP<90, OR Lactate>4 mmol\L) present?: No - <6hrs of presentation: Vital Signs: Vital Signs - 8 hr 08/31/17 14:03 Temp 99.7 F HR 105 RR 22 BP 111/54 O2 Sat % 96 ED Reassessment (Disposition) - Reassessment Reassessment:: pt tolerated po fluids well in ER; pt is asymptomatic upon discharge; Reassessment Condition:: Improved - Diagnosis Diagnosis:: Hypokalemia; Abdominal Pain-resolved; AGE; Abdominal Pain; N/V/D; Gastritis; Leg Sprains and Strains; Sciatica; Back Pain; Viral Syndrome; Gastroenteritis - Aftercare/Follow up Instructions Aftercare/Follow-Up Instructions:: Counseled pt regarding lab results/diagnosis & need follow up, Refer to Discharge Instructions, Counseled pt & family regarding lab results/diagnosis & need follow up - Patient Disposition Discharge/Transfer:: Home Condition at Disposition:: Stable, Improved (RTER prn if existing s/s reoccur and/or get worse and/or any other new s/s occur; X-Rays; U/S Care Instructions; ACIs given for all above Dx; Refer to GI Specialist/Orthopedist/Neurologist/ Apartment Leasing Specialist JUAN; F/U with PMD in one day or prn; Clear Liquid Diet; Encourage Fluids; Eat Potassium Rich Foods; RTER prn if concerned) ED Discharge Plan - Patient Disposition Admit/Discharge/Transfer: PT DISCHARGED HOME Condition at Disposition: Stable Instructions: Viral Gastroenteritis, [id number] Additional Instructions: Clear liquid diet. Pls follow up with PCP in 1-2 days. Return to ER if symptoms worsen.
[2017-08-31 14:39] LABS: % BASOPHILS 0.1 % (0.0-2.0); % EOSINOPHILS 1.8 % (0.0-5.0); % LYMPHOCYTES 21.6 % (20.0-50.0); % NEUTROPHILS 68.5 % (40.0-80.0); EOSINOPHILE ABSOLUTE 0.1 Th/cmm (0.1-0.4); HEMATOCRIT 40.6 % (41.0-60); HEMOGLOBIN 13.5 gm/dL (12-16); LYMPHOCYTE ABSOLUTE 1.6 Th/cmm (1.5-3.0); MEAN CELL VOLUME 82.6 fl (80-99); MEAN CORPUSCULAR HEMOGLOBIN 27.5 pg (26.0-30.0); MEAN CORPUSCULAR HGB CONC 33.3 pg (28.0-36.0); MEAN PLATELET VOLUME 9.3 fl; MONOCYTE ABSOLUTE 0.6 Th/cmm (0.3-1.0); NEUTROPHILE ABSOLUTE 5.3 Th/cmm (1.8-8.0); PLATELET COUNT 135 Th/cmm (150-400); RED BLOOD COUNT 4.91 Mil/cmm (4.30-5.70); RED CELL DISTRIBUTION WIDTH 16.4 % (11.5-20.0); WHITE BLOOD COUNT 7.6 Th/cmm (4.8-10.8)
[2017-08-31 14:55] LABS: INR 1.03 (0.5-1.4); PROTHROMBIN TIME (TEST) 10.7 SECONDS (9.5-11.5)
[2017-08-31 15:00] LABS: ALB/GLOB RATIO 1.4 (1.0-1.8); ALBUMIN 3.9 gm/dL (4.2-5.5); ALKALINE PHOSPHATASE 84 U/L (34-104); ANION GAP 12.4 (7.0-16.0); BILIRUBIN,TOTAL 0.4 mg/dL (0.3-1.0); BUN - UREA NITROGEN 10 mg/dL (7-25); CALCIUM SERUM 9.1 mg/dL (8.6-10.3); CHLORIDE 102 mEq/L (98-107); CHOLESTEROL 127 mg/dL (<200); CREATININE - SERUM 1.3 mg/dL (0.7-1.3); CREATININE KINASE 89 U/L (30-223); GFR AFRICAN-AMERICAN > 60.0 ml/min (>90); GFR NON AFRICAN-AMERICAN > 60.0 ml/min; GLUCOSE 76 mg/dL (70-105); HDL -HIGH DENSITY LIPOPROTEIN 39 mg/dL (23-92); POTASSIUM SERUM 3.4 mEq/L (3.5-5.1); SGOT 14 U/L (13-39); SGPT/ALT 13 U/L (7-52); SODIUM SERUM 136 mEq/L (136-145); TOTAL PROTEIN,SERUM 6.7 gm/dL (6.0-8.3); TRIGLYCERIDES 161 mg/dL (<150)
[2017-08-31 15:01] LABS: AMYLASE SERUM 52 U/L (29-103); LIPASE 25 U/L (11-82)
[2017-08-31] MEDS ORDERED: Potassium Chloride 20 mEq ER Tab PO ONE ×2 (16:20→16:40)
[2017-08-31 16:53] LABS: URINE MICROSCOPIC INDICATED? YES; URINE SOURCE CLEAN C
[2017-08-31 16:55] LABS: URINE BILIRUBIN NEGATIVE (NEGATIVE); URINE BLOOD NEGATIVE (NEGATIVE); URINE GLUCOSE (UA) NEGATIVE (NEGATIVE); URINE KETONE NEGATIVE (NEGATIVE); URINE LEUKOCYTE ESTERASE NEGATIVE (NEGATIVE); URINE NITRATE NEGATIVE (NEGATIVE); URINE PROTEIN NEGATIVE (NEGATIVE); URINE UROBILINOGEN 0.2 E.U./dL (0.2 - 1.0)
[2017-08-31 21:33] LABS: URINE COLOR YELLOW
[2017-08-31 21:34] LABS: URINE CLARITY CLEAR (CLEAR)
[2017-08-31 21:52] LABS: URINE EPITHELIAL CELLS NONE SEEN /lpf (FEW); URINE RBC NONE SEEN /hpf (0-5); URINE WBC NONE SEEN /hpf (0-5)
[2017-08-31 21:53] LABS: URINE BACTERIA NONE SEEN /hpf (NONE SEEN)
--- NOTE | 2017-09-01 07:51 | Diagnostic Imaging Report ---
Bilateral lower extremity Doppler venous ultrasound exam HISTORY: Pain/swelling Sonographic sector images were obtained through the deep venous systems of both legs. Associated Doppler data was obtained. The exam demonstrates patency of the common femoral, superficial femoral, popliteal, and posterior tibial veins bilaterally. Specifically, no thrombus is seen. There are normal compressibility and augmentation responses. IMPRESSION: Negative exam for deep vein thrombophlebitis.
== END 2017-08-31 17:30 | disposition home or self-care (01) ==
LOC: ER 13:52
DX: K52.9 Noninfective gastroenteritis and colitis, unspecified (principal); R11.2 Nausea with vomiting, unspecified; R19.7 Diarrhea, unspecified; E87.6 Hypokalemia; M54.40 Lumbago with sciatica, unspecified side; T14.8XXA Other injury of unspecified body region, initial encounter; X58.XXXA Exposure to other specified factors, initial encounter; Y93.89 Activity, other specified; Y92.89 Other specified places as the place of occurrence of the external cause; Y99.8 Other external cause status
CPT/HCPCS: 99285; 96374; 94760; 93005; 93970; 84484; 83880; 36415; 85025; 85610; 81001; 82150; 82550; 83690; 80053; 80061; J2405; J7030

== ENCOUNTER 2017-08-31 23:39 | Emergency (ER) | payer MEDICAID ==
[2017-09-01 00:29] LABS: % BASOPHILS 0.4 % (0.0-2.0); % EOSINOPHILS 1.8 % (0.0-5.0); % LYMPHOCYTES 22.6 % (20.0-50.0); % MONOCYTES 8.2 % (2.0-10.0); EOSINOPHILE ABSOLUTE 0.1 Th/cmm (0.1-0.4); HEMATOCRIT 36.9 % (41.0-60); HEMOGLOBIN 12.3 gm/dL (12-16); LYMPHOCYTE ABSOLUTE 1.5 Th/cmm (1.5-3.0); MEAN CELL VOLUME 82.7 fl (80-99); MEAN CORPUSCULAR HEMOGLOBIN 27.5 pg (26.0-30.0); MEAN CORPUSCULAR HGB CONC 33.3 pg (28.0-36.0); MEAN PLATELET VOLUME 8.9 fl; MONOCYTE ABSOLUTE 0.5 Th/cmm (0.3-1.0); NEUTROPHILE ABSOLUTE 4.6 Th/cmm (1.8-8.0); PLATELET COUNT 132 Th/cmm (150-400); RED BLOOD COUNT 4.47 Mil/cmm (4.30-5.70); RED CELL DISTRIBUTION WIDTH 16.3 % (11.5-20.0); WHITE BLOOD COUNT 6.7 Th/cmm (4.8-10.8)
[2017-09-01 00:49] LABS: ALB/GLOB RATIO 1.4 (1.0-1.8); ALBUMIN 3.5 gm/dL (4.2-5.5); ALKALINE PHOSPHATASE 77 U/L (34-104); BILIRUBIN,TOTAL 0.3 mg/dL (0.3-1.0); BUN - UREA NITROGEN 11 mg/dL (7-25); CALCIUM SERUM 8.6 mg/dL (8.6-10.3); CARBON DIOXIDE 28.1 mEq/L (21.0-31.0); CHLORIDE 105 mEq/L (98-107); CREATININE - SERUM 1.3 mg/dL (0.7-1.3); GFR AFRICAN-AMERICAN > 60.0 ml/min (>90); GFR NON AFRICAN-AMERICAN > 60.0 ml/min; GLUCOSE 82 mg/dL (70-105); POTASSIUM SERUM 4.1 mEq/L (3.5-5.1); SGOT 15 U/L (13-39); SGPT/ALT 11 U/L (7-52); SODIUM SERUM 136 mEq/L (136-145)
--- NOTE | 2017-09-01 01:30 | ED Physician Chart ---
ED Chief Complaint/HPI - Patient Information Date Seen:: 09/01/17 Time Seen:: 00:00 Chief Complaint:: knee pain History of Present Illness:: location; knees quality: achy pain severity: mild duration; many weeks context: pt with history of chronic pain. comes to ER reporting pain behind knee caps for several days. has been walking and performing intrumental activities of daily living. no trauma, has had this pain before. came to ER asking for pain medications. no fall, no twisting trauma. mod factors: none assoc s/s: none hx from pt. Allergies:: Allergies Allergy/AdvReac Type Severity Reaction Status Date / Time acetaminophen [From [place]] Allergy Verified 08/21/17 19:48 aspirin Allergy Verified 08/21/17 19:48 carisoprodol [From [place]] Allergy Verified 08/31/17 14:01 gabapentin Allergy Verified 08/21/17 19:48 hydrocodone [From [place]] Allergy Verified 08/21/17 19:48 ketorolac [From Toradol] Allergy Verified 08/21/17 19:48 meperidine [From [place]erol] Allergy Verified 08/21/17 19:48 promethazine Allergy Verified 08/21/17 19:48 tramadol Allergy Verified 08/21/17 19:48 Vitals:: Vital Signs - 8 hr 08/31/17 09/01/17 23:57 00:31 Temp 98.1 F 98.1 F HR 81 81 RR 18 18 BP 103/58 103/58 O2 Sat % 95 96 Historian:: Patient Review:: Nurse's Note Reviewed ED Review of Systems - Review of Systems General/Constitutional: No fever, No chills, No weight loss, No weakness, No diaphoresis, No edema, No loss of appetite Skin: No skin lesions, No rash, No bruising Head: No headache, No light-headedness Eyes: No loss of vision, No pain, No diplopia ENT: No earache, No nasal drainage, No sore throat, No tinnitus Neck: No neck pain, No swelling, No thyromegaly, No stiffness, No mass noted Cardio Vascular: No chest pain, No palpitations, No PND, No orthopnea, No edema Pulmonary: No SOB, No cough, No sputum, No wheezing GI: No nausea, No vomiting, No diarrhea, No pain, No melena, No hematochezia, No constipation, No hematemesis G/U: No dysuria, No frequency, No hematuria Musculoskeletal: Bone or joint pain, No back pain, No muscle pain Endocrine: No polyuria, No polydipsia Psychiatric: No prior psych history, No depression, No anxiety, No suicidal ideation Hematopoietic: No bruising, No lymphadenopathy Allergic/Immuno: No urticaria, No angioedema Neurological: No syncope, No focal symptoms, No weakness, No paresthesia, No headache, No seizure, No dizziness, No confusion, No vertigo ED Past Medical History - Past Medical History Past Medical History: HTN, Dyslipidemia, PUD/GERD Family History: None Social History: Non Smoker, No Alcohol, No Drug Use Surgical History: other Psychiatricy History: Other Medication: Reviewed Family Medical History - Family Member Mother History Unknown: Yes Ethnicity: Living Status: Hx Family Cancer: No Hx Family Coronary Artery Disease: No Hx Family Congestive Heart Failure: No Hx Family Hypertension: No Hx Family Stroke: No Hx Family Diabetes: Yes Hx Family Seizures: No Hx Family Dementia: No Hx Family AIDS: No Hx Family HIV: No Hx Family COPD: No Hx Family Hepatitis: No Hx Family Psychiatric Problems: No Hx Family Tuberculosis: No Father History Unknown: Yes Ethnicity: Living Status: Hx Family Cancer: No Hx Family Coronary Artery Disease: No Hx Family Congestive Heart Failure: No Hx Family Hypertension: No Hx Family Stroke: No Hx Family Diabetes: No Hx Family Seizures: No Hx Family Dementia: No Hx Family AIDS: No Hx Family HIV: No Hx Family COPD: No Hx Family Hepatitis: No Hx Family Psychiatric Problems: No Hx Family Tuberculosis: No ED Physical Exam - Physical Examination General/Constitutional: Awake, Well-developed, well-nourished, Alert, No distress, GCS 15, Non-toxic appearing, Ambulatory Head: Atraumatic Eyes: Lids, conjuctiva normal, PERRL, EOMI Skin: Nl inspection, No rash, No skin lesions, No ecchymosis, Well hydrated, No lymphadenopathy ENMT: External ears, nose nl, Nasal exam nl, Lips, teeth, gums nl Neck: Nontender, No JVD, No nuchal rigidity Respiratory: Nl effort/Exclusion, Clear to Auscultation, No Wheeze/Rhonchi/Rales Cardio Vascular: RRR, No murmur, gallop, rubs, NL S1 S2 GI: No tenderness/rebounding/guarding, Normal BS's, No McBurney tenderness : No CVA tenderness Extremities: No tenderness or effusion, Full ROM, normal strength in all extremities (bilateral knees stable, no tenderness at patella or knee bones. no instability, negative anterior and posterior drawer signs. negative lateral instability. ), No edema, Normal digits & nails Neuro/Psych: Alert/oriented Misc: Normal back, No paraspinal tenderness ED Labs/Radiology/EKG Results - Lab Results Results: Laboratory Tests 09/01/17 09/01/17 00:15 00:15 WBC 6.7 RBC 4.47 Hgb 12.3 Hct 36.9 L MCV 82.7 MCH 27.5 MCHC Differential 33.3 RDW 16.3 Plt Count 132 L MPV 8.9 Neutrophils % 67.0 Lymphocytes % 22.6 Monocytes % 8.2 Eosinophils % 1.8 Basophils % 0.4 Sodium 136 Potassium 4.1 Chloride 105 Carbon Dioxide 28.1 Anion Gap 7.0 BUN 11 Creatinine 1.3 Est GFR ( Amer) > 60.0 Est GFR (Non-Af Amer) > 60.0 BUN/Creatinine Ratio 8.5 Glucose 82 Calcium 8.6 Total Bilirubin 0.3 AST 15 ALT 11 Alkaline Phosphatase 77 Total Protein 6.0 Albumin 3.5 L Globulin 2.5 Albumin/Globulin Ratio 1.4 ED Septic Shock - . Is Septic Shock (SBP<90, OR Lactate>4 mmol\L) present?: No - <6hrs of presentation: Vital Signs: Vital Signs - 8 hr 08/31/17 09/01/17 23:57 00:31 Temp 98.1 F 98.1 F HR 81 81 RR 18 18 BP 103/58 103/58 O2 Sat % 95 96 ED Reassessment (Disposition) - Reassessment Reassessment:: pt stable while in ER. Reassessment Condition:: Unchanged - Diagnosis Diagnosis:: chronic bilateral knee pain - Aftercare/Follow up Instructions Aftercare/Follow-Up Instructions:: Refer to Discharge Instructions Notes:: pt has been advised to FU with PCP for further control of chronic pain. Medication Prescribed:: no meds prescribed - Patient Disposition Discharge/Transfer:: Home Condition at Disposition:: Stable
== END 2017-09-01 01:52 | disposition home or self-care (01) ==
LOC: ER 23:39
DX: G89.29 Other chronic pain (principal); M25.561 Pain in right knee; M25.562 Pain in left knee; I10 Essential (primary) hypertension; E78.5 Hyperlipidemia, unspecified; K21.9 Gastro-esophageal reflux disease without esophagitis; Z87.11 Personal history of peptic ulcer disease
CPT/HCPCS: 36415-UA; 80053-TC; 85025-TC; Z7502

== ENCOUNTER 2017-09-01 14:33 | Emergency (ER) | payer MEDICAID ==
--- NOTE | 2017-09-01 16:35 | ED Physician Chart ---
ED Chief Complaint/HPI - Patient Information Date Seen:: 09/01/17 Time Seen:: 15:00 Chief Complaint:: Knee Pain History of Present Illness:: onset x 3 days of dull, intermittent, MS type knee pain which resolved upon ER arrival; pt denies LOC, syncope, AMS, ALOC, near-syncope, trauma, H/As, S/T, neck pain, C/P, SOB, cough, Abd. Pain, A/N/V/D/C, fever, chills, or urinary s/s ; pt denies paresthesias, visual or gait changes, weakness, dizziness, vertigo, ; pt's last tetanus shot: < 5 years; UTD; pt is eating and urinating well; pt last urinated one hour [employer]OCK[employer]ER Allergies:: Allergies Allergy/AdvReac Type Severity Reaction Status Date / Time acetaminophen [From [place]] Allergy Verified 08/21/17 19:48 aspirin Allergy Verified 08/21/17 19:48 carisoprodol [From [place]] Allergy Verified 08/31/17 14:01 gabapentin Allergy Verified 08/21/17 19:48 hydrocodone [From [place]] Allergy Verified 08/21/17 19:48 ketorolac [From Toradol] Allergy Verified 08/21/17 19:48 meperidine [From Demerol] Allergy Verified 08/21/17 19:48 promethazine Allergy Verified 08/21/17 19:48 tramadol Allergy Verified 08/21/17 19:48 Vitals:: Vital Signs - 8 hr 09/01/17 09/01/17 15:05 16:15 Temp 98.5 F 98.5 F HR 65 87 RR 18 18 BP 125/66 125/66 O2 Sat % 98 98 Historian:: Patient Review:: Nurse's Note Reviewed ED Review of Systems - Review of Systems General/Constitutional: No fever, No chills, No weight loss, No weakness, No diaphoresis, No edema, No loss of appetite Skin: No skin lesions, No rash, No bruising Head: No headache, No light-headedness Eyes: No loss of vision, No pain, No diplopia ENT: No earache, No nasal drainage, No sore throat, No tinnitus Neck: No neck pain, No swelling, No thyromegaly, No stiffness, No mass noted Cardio Vascular: No chest pain, No palpitations, No PND, No orthopnea, No edema Pulmonary: No SOB, Cough, No sputum, Wheezing GI: No nausea, No vomiting, No diarrhea, No pain, No melena, No hematochezia, No constipation, No hematemesis G/U: No dysuria, No frequency, No hematuria Musculoskeletal: Bone or joint pain, No back pain, No muscle pain Endocrine: No polyuria, No polydipsia Psychiatric: No prior psych history, No depression, No anxiety, No suicidal ideation, No homicidal ideation, No auditory hallucination, No visual hallucination Hematopoietic: No bruising, No lymphadenopathy Allergic/Immuno: No urticaria, No angioedema Neurological: No syncope, No focal symptoms, No weakness, No paresthesia, No headache, No seizure, No dizziness, No confusion, No vertigo ED Past Medical History - Past Medical History Obtainable: Yes Past Medical History: HTN, Asthma/COPD, Dyslipidemia Family History: HTN Social History: Smoker, No Alcohol, No Drug Use, Single, Homeless Surgical History: None Psychiatricy History: None Medication: Reviewed Family Medical History - Family Member Mother History Unknown: Yes Ethnicity: Living Status: Hx Family Cancer: No Hx Family Coronary Artery Disease: No Hx Family Congestive Heart Failure: No Hx Family Hypertension: No Hx Family Stroke: No Hx Family Diabetes: Yes Hx Family Seizures: No Hx Family Dementia: No Hx Family AIDS: No Hx Family HIV: No Hx Family COPD: No Hx Family Hepatitis: No Hx Family Psychiatric Problems: No Hx Family Tuberculosis: No Father History Unknown: Yes Ethnicity: Living Status: Hx Family Cancer: No Hx Family Coronary Artery Disease: No Hx Family Congestive Heart Failure: No Hx Family Hypertension: No Hx Family Stroke: No Hx Family Diabetes: No Hx Family Seizures: No Hx Family Dementia: No Hx Family AIDS: No Hx Family HIV: No Hx Family COPD: No Hx Family Hepatitis: No Hx Family Psychiatric Problems: No Hx Family Tuberculosis: No ED Physical Exam - Physical Examination General/Constitutional: Awake, Well-developed, well-nourished, Alert, No distress, GCS 15, Non-toxic appearing, Ambulatory Head: Atraumatic Eyes: Lids, conjuctiva normal, PERRL, EOMI Other Eyes comments:: PERRLA; Fundi: benign; EOMs: WNL Skin: Nl inspection, No rash, No skin lesions, No ecchymosis, Well hydrated, No lymphadenopathy ENMT: External ears, nose nl, TM canals nl, Nasal exam nl, Lips, teeth, gums nl , Oropharynx nl, Tonsils nl Other ENMT comments:: TMJs: WN: Neck: Nontender, Full ROM w/o pain, No JVD, No nuchal rigidity, No bruit, No mass, No stridor Other Neck comments:: supple; no meningeal signs; no cervical tenderness; no bruits Respiratory: Nl effort/Exclusion, Clear to Auscultation, No Wheeze/Rhonchi/Rales Cardio Vascular: RRR, No murmur, gallop, rubs, NL S1 S2 GI: No tenderness/rebounding/guarding, No organomegaly, No hernia, Normal BS's, Nondistended, No mass/bruits, No McBurney tenderness, Rectum exam nl Other GI comments:: no pulsatile masses : No CVA tenderness Extremities: No tenderness or effusion, Full ROM, normal strength in all extremities, No edema, Normal digits & nails Other Extremities comments:: Knee Exams: WNL; full ROMs; no tenderness; no septic joints; no ligament instability; DTRs: 2+ bilaterally; Gait: WNL; good motor, tendon, and sensory functions; good NV functions Neuro/Psych: Alert/oriented, DTR's symmetric, Normal sensory exam, Normal motor strength, Judgement/insight normal, Mood normal, Normal gait, No focal deficits Misc: Normal back, No paraspinal tenderness ED Labs/Radiology/EKG Results - Radiology Results Comments:: X-Rays: deferred by Pt ED Septic Shock - . Is Septic Shock (SBP<90, OR Lactate>4 mmol\L) present?: No - <6hrs of presentation: Vital Signs: Vital Signs - 8 hr 09/01/17 09/01/17 15:05 16:15 Temp 98.5 F 98.5 F HR 65 87 RR 18 18 BP 125/66 125/66 O2 Sat % 98 98 ED Reassessment (Disposition) - Reassessment Reassessment:: pt is asymptomatic upon discharge Reassessment Condition:: Improved - Diagnosis Diagnosis:: Knee Pain; Chronic Pain Syndrome; Knee Sprains and Strains; Drug Dependency - Aftercare/Follow up Instructions Aftercare/Follow-Up Instructions:: Counseled pt regarding lab results/diagnosis & need follow up, Refer to Discharge Instructions, Counseled pt & family regarding lab results/diagnosis & need follow up - Patient Disposition Discharge/Transfer:: Home Condition at Disposition:: Stable, Improved (RTER prn if existing s/s reoccur and/or get worse and/or any other new s/s occur; ACIs given for all above Dx; Referc to [facility]; Refer to [facility]; Refer to Orthopedist/Practice Office Associate [facility]; F/U with PMD in one day or prn; RTER prn if concerned) ED Discharge Plan - Patient Disposition Admit/Discharge/Transfer: PT DISCHARGED HOME Condition at Disposition: Stable Instructions: Chronic Pain Management, Chronic Pain Additional Instructions: Follow-up with primary MD and pain specialist for pain control as soon as possible
== END 2017-09-01 16:15 | disposition home or self-care (01) ==
LOC: ER 14:33
DX: S83.90XA Sprain of unspecified site of unspecified knee, initial encounter (principal); X58.XXXA Exposure to other specified factors, initial encounter; G89.29 Other chronic pain; F19.20 Other psychoactive substance dependence, uncomplicated; I10 Essential (primary) hypertension; E78.5 Hyperlipidemia, unspecified; J45.909 Unspecified asthma, uncomplicated; J44.9 Chronic obstructive pulmonary disease, unspecified; Y93.89 Activity, other specified; Y92.89 Other specified places as the place of occurrence of the external cause; Y99.8 Other external cause status
CPT/HCPCS: Z7502

== ENCOUNTER 2017-09-17 16:48 | Emergency (ER) | payer MEDICAID ==
[2017-09-17] MEDS ORDERED: Sodium Chloride 0.9% 1,000 ML IV ONE (17:18)
--- NOTE | 2017-09-17 17:22 | ED Physician Chart ---
ED Chief Complaint/HPI - Patient Information Date Seen:: 09/17/17 Time Seen:: 16:55 Chief Complaint:: Abdominal Pain History of Present Illness:: onset x 3 days of intermittent, crampy, epigastric pain, N/V/D x 10; pt denies trauma, H/As, S/T, neck pain, C/P, SOB, A/C, fever, chills, or urinary s/s Allergies:: Allergies Allergy/AdvReac Type Severity Reaction Status Date / Time acetaminophen [From [place]] Allergy Verified 08/21/17 19:48 aspirin Allergy Verified 08/21/17 19:48 carisoprodol [From [place]] Allergy Verified 08/31/17 14:01 gabapentin Allergy Verified 08/21/17 19:48 hydrocodone [From [place]] Allergy Verified 08/21/17 19:48 ketorolac [From Toradol] Allergy Verified 08/21/17 19:48 meperidine [From Demerol] Allergy Verified 08/21/17 19:48 promethazine Allergy Verified 08/21/17 19:48 tramadol Allergy Verified 08/21/17 19:48 Vitals:: Vital Signs - 8 hr 09/17/17 16:57 Temp 98.5 F HR 70 RR 18 BP 114/67 O2 Sat % 97 Historian:: Patient Review:: Nurse's Note Reviewed ED Review of Systems - Review of Systems General/Constitutional: No fever, No chills, No weight loss, No weakness, No diaphoresis, No edema, No loss of appetite Skin: No skin lesions, No rash, No bruising Head: No headache, No light-headedness Eyes: No loss of vision, No pain, No diplopia ENT: No earache, No nasal drainage, No sore throat, No tinnitus Neck: No neck pain, No swelling, No thyromegaly, No stiffness, No mass noted Cardio Vascular: No chest pain, No palpitations, No PND, No orthopnea, No edema Pulmonary: No SOB, No cough, No sputum, No wheezing GI: Nausea, Vomiting, Diarrhea, Pain, No melena, No hematochezia, No constipation, No hematemesis G/U: No dysuria, No frequency, No hematuria, No nacturia Musculoskeletal: No bone or joint pain, No back pain, No muscle pain Endocrine: No polyuria, No polydipsia Psychiatric: No prior psych history, No depression, No anxiety, No suicidal ideation, No homicidal ideation, No auditory hallucination, No visual hallucination Hematopoietic: No bruising, No lymphadenopathy Allergic/Immuno: No urticaria, No angioedema Neurological: No syncope, No focal symptoms, No weakness, No paresthesia, No headache, No seizure, No dizziness, No confusion, No vertigo ED Past Medical History - Past Medical History Obtainable: Yes Past Medical History: HTN, PUD/GERD Family History: HTN Social History: Non Smoker, Alcohol, Illicit Drug Use, Single Surgical History: None Psychiatricy History: None Medication: Reviewed Family Medical History - Family Member Mother History Unknown: Yes Ethnicity: Living Status: Hx Family Cancer: No Hx Family Coronary Artery Disease: No Hx Family Congestive Heart Failure: No Hx Family Hypertension: No Hx Family Stroke: No Hx Family Diabetes: Yes Hx Family Seizures: No Hx Family Dementia: No Hx Family AIDS: No Hx Family HIV: No Hx Family COPD: No Hx Family Hepatitis: No Hx Family Psychiatric Problems: No Hx Family Tuberculosis: No Father History Unknown: Yes Ethnicity: Living Status: Hx Family Cancer: No Hx Family Coronary Artery Disease: No Hx Family Congestive Heart Failure: No Hx Family Hypertension: No Hx Family Stroke: No Hx Family Diabetes: No Hx Family Seizures: No Hx Family Dementia: No Hx Family AIDS: No Hx Family HIV: No Hx Family COPD: No Hx Family Hepatitis: No Hx Family Psychiatric Problems: No Hx Family Tuberculosis: No ED Physical Exam - Physical Examination General/Constitutional: Awake, Well-developed, well-nourished, Alert, No distress, GCS 15, Non-toxic appearing, Ambulatory Head: Atraumatic Eyes: Lids, conjuctiva normal, PERRL, EOMI Skin: Nl inspection, No rash, No skin lesions, No ecchymosis, Well hydrated, No lymphadenopathy ENMT: External ears, nose nl, TM canals nl, Nasal exam nl, Lips, teeth, gums nl , Oropharynx nl, Tonsils nl Neck: Nontender, Full ROM w/o pain, No JVD, No nuchal rigidity, No bruit, No mass, No stridor Other Neck comments:: supple; no meningeal signs; no cervical tenderness; no bruits Respiratory: Nl effort/Exclusion, Clear to Auscultation, No Wheeze/Rhonchi/Rales Cardio Vascular: RRR, No murmur, gallop, rubs, NL S1 S2, Carotid/Femoral/Distal pulses equal bilaterally GI: No tenderness/rebounding/guarding, No organomegaly, No hernia, Normal BS's, Nondistended, No mass/bruits, No McBurney tenderness, Rectum exam nl Other GI comments:: no pulsatile masses : No CVA tenderness Extremities: No tenderness or effusion, Full ROM, normal strength in all extremities, No edema, Normal digits & nails Neuro/Psych: Alert/oriented, DTR's symmetric, Normal sensory exam, Normal motor strength, Judgement/insight normal, Mood normal, Normal gait, No focal deficits Misc: Normal back, No paraspinal tenderness ED Labs/Radiology/EKG Results - Lab Results Comments:: unremarkable - EKG Interpretations EKG Time:: 17:23 Rate & Rhythm: 69; NSR Comments:: ATIYA; non-specific st-t changes ED Septic Shock - . Is Septic Shock (SBP<90, OR Lactate>4 mmol\L) present?: No - <6hrs of presentation: Vital Signs: Vital Signs - 8 hr 09/17/17 16:57 Temp 98.5 F HR 70 RR 18 BP 114/67 O2 Sat % 97 ED Reassessment (Disposition) - Reassessment Reassessment:: pt tolerated po fluids well in ER; pt is asymptomatic upon discharge Reassessment Condition:: Improved - Diagnosis Diagnosis:: Abdominal Pain-Resolved; AGE; Gastritis; N/V/D; Viral Syndrome; Gastroenteritis ; Substance Abuse - Aftercare/Follow up Instructions Aftercare/Follow-Up Instructions:: Counseled pt regarding lab results/diagnosis & need follow up, Refer to Discharge Instructions, Counseled pt & family regarding lab results/diagnosis & need follow up Medication Prescribed:: Clear Liquid Diet; encourage fluids - Patient Disposition Discharge/Transfer:: Home Condition at Disposition:: Stable, Improved (RTER prn if existing s/s reoccur and/or get worse and/or any other new s/s occur; ACIs given for all above Dx; Refer to [facility]; Refer to GI Specialist/[facility]; F/U with PMD in one day or prn; RTER prn if concerned)
[2017-09-17 18:06] LABS: ALB/GLOB RATIO 1.3 (1.0-1.8); ALBUMIN 3.5 gm/dL (4.2-5.5); ALKALINE PHOSPHATASE 101 U/L (34-104); ANION GAP 9.6 (7.0-16.0); BILIRUBIN,TOTAL 0.3 mg/dL (0.3-1.0); BUN - UREA NITROGEN 9 mg/dL (7-25); CALCIUM SERUM 8.1 mg/dL (8.6-10.3); CHLORIDE 109 mEq/L (98-107); CHOLESTEROL 111 mg/dL (<200); CREATININE - SERUM 1.1 mg/dL (0.7-1.3); CREATININE KINASE 115 U/L (30-223); GFR AFRICAN-AMERICAN > 60.0 ml/min (>90); GFR NON AFRICAN-AMERICAN > 60.0 ml/min; GLUCOSE 108 mg/dL (70-105); HDL -HIGH DENSITY LIPOPROTEIN 23 mg/dL (23-92); POTASSIUM SERUM 3.6 mEq/L (3.5-5.1); SGOT 13 U/L (13-39); SGPT/ALT 10 U/L (7-52); SODIUM SERUM 138 mEq/L (136-145); TOTAL PROTEIN,SERUM 6.2 gm/dL (6.0-8.3); TRIGLYCERIDES 347 mg/dL (<150)
[2017-09-17] MEDS ORDERED: Metoclopramide 5 mg/mL 2mL Vial IVP STA (18:09)
[2017-09-17] MEDS ORDERED: Metoclopramide 5 mg/mL 2mL Vial ONE (18:13)
[2017-09-17 18:14] LABS: % BASOPHILS 0.2 % (0.0-2.0); % EOSINOPHILS 3.9 % (0.0-5.0); % LYMPHOCYTES 27.2 % (20.0-50.0); % MONOCYTES 9.1 % (2.0-10.0); % NEUTROPHILS 59.6 % (40.0-80.0); EOSINOPHILE ABSOLUTE 0.2 Th/cmm (0.1-0.4); HEMOGLOBIN 11.9 gm/dL (12-16); LYMPHOCYTE ABSOLUTE 1.7 Th/cmm (1.5-3.0); MEAN CELL VOLUME 83.5 fl (80-99); MEAN CORPUSCULAR HEMOGLOBIN 27.5 pg (26.0-30.0); MEAN PLATELET VOLUME 9.5 fl; MONOCYTE ABSOLUTE 0.6 Th/cmm (0.3-1.0); NEUTROPHILE ABSOLUTE 3.9 Th/cmm (1.8-8.0); PLATELET COUNT 181 Th/cmm (150-400); RED BLOOD COUNT 4.31 Mil/cmm (4.30-5.70); RED CELL DISTRIBUTION WIDTH 16.4 % (11.5-20.0); WHITE BLOOD COUNT 6.4 Th/cmm (4.8-10.8)
[2017-09-17 18:17] LABS: INR 1.01 (0.5-1.4); PROTHROMBIN TIME (TEST) 10.5 SECONDS (9.5-11.5)
[2017-09-17 18:35] LABS: AMYLASE SERUM 49 U/L (29-103); LIPASE 45 U/L (11-82)
== END 2017-09-17 19:43 | disposition home or self-care (01) ==
LOC: ER 16:48
DX: K52.9 Noninfective gastroenteritis and colitis, unspecified (principal); B34.9 Viral infection, unspecified; F19.10 Other psychoactive substance abuse, uncomplicated; I10 Essential (primary) hypertension; K21.9 Gastro-esophageal reflux disease without esophagitis; K27.9 Peptic ulcer, site unspecified, unspecified as acute or chronic, without hemorrhage or perforation; Z88.6 Allergy status to analgesic agent; Z88.8 Allergy status to other drugs, medicaments and biological substances
CPT/HCPCS: 99285; 96374; 96375; 93005; 84484; 83880; 36415; 85025; 85610; 82150; 82550; 83690; 80053; 80061; J2405; J2765; J1200; J7030

== ENCOUNTER 2017-09-19 12:09 | Emergency (ER) | payer MEDICAID ==
[2017-09-19 12:58] LABS: URINE MICROSCOPIC INDICATED? YES; URINE SOURCE RANDOM
[2017-09-19 13:06] LABS: % BASOPHILS 0.4 % (0.0-2.0); % EOSINOPHILS 3.1 % (0.0-5.0); % LYMPHOCYTES 25.7 % (20.0-50.0); % MONOCYTES 10.1 % (2.0-10.0); % NEUTROPHILS 60.7 % (40.0-80.0); EOSINOPHILE ABSOLUTE 0.2 Th/cmm (0.1-0.4); HEMATOCRIT 37.5 % (41.0-60); HEMOGLOBIN 12.4 gm/dL (12-16); LYMPHOCYTE ABSOLUTE 1.6 Th/cmm (1.5-3.0); MEAN CELL VOLUME 82.2 fl (80-99); MEAN CORPUSCULAR HEMOGLOBIN 27.3 pg (26.0-30.0); MEAN CORPUSCULAR HGB CONC 33.1 pg (28.0-36.0); MEAN PLATELET VOLUME 8.9 fl; MONOCYTE ABSOLUTE 0.6 Th/cmm (0.3-1.0); PLATELET COUNT 193 Th/cmm (150-400); RED BLOOD COUNT 4.57 Mil/cmm (4.30-5.70); RED CELL DISTRIBUTION WIDTH 16.4 % (11.5-20.0); WHITE BLOOD COUNT 6.4 Th/cmm (4.8-10.8)
[2017-09-19 13:08] LABS: URINE BILIRUBIN NEGATIVE (NEGATIVE); URINE CLARITY CLEAR (CLEAR); URINE COLOR YELLOW; URINE GLUCOSE (UA) NEGATIVE (NEGATIVE); URINE KETONE NEGATIVE (NEGATIVE)
[2017-09-19 13:09] LABS: URINE BACTERIA NONE SEEN /hpf (NONE SEEN); URINE BLOOD NEGATIVE (NEGATIVE); URINE EPITHELIAL CELLS OCCASIONAL /lpf (FEW); URINE LEUKOCYTE ESTERASE NEGATIVE (NEGATIVE); URINE NITRATE NEGATIVE (NEGATIVE); URINE PROTEIN NEGATIVE (NEGATIVE); URINE RBC 0-2 /hpf (0-5); URINE UROBILINOGEN 0.2 E.U./dL (0.2 - 1.0); URINE WBC 0-2 /hpf (0-5)
[2017-09-19 13:13] LABS: ALB/GLOB RATIO 1.4 (1.0-1.8); ALKALINE PHOSPHATASE 116 U/L (34-104); BILIRUBIN,TOTAL 0.5 mg/dL (0.3-1.0); BUN - UREA NITROGEN 6 mg/dL (7-25); CALCIUM SERUM 8.8 mg/dL (8.6-10.3); CARBON DIOXIDE 25.7 mEq/L (21.0-31.0); CHLORIDE 105 mEq/L (98-107); CREATININE - SERUM 1.3 mg/dL (0.7-1.3); GFR AFRICAN-AMERICAN > 60.0 ml/min (>90); GFR NON AFRICAN-AMERICAN > 60.0 ml/min; GLUCOSE 69 mg/dL (70-105); POTASSIUM SERUM 3.7 mEq/L (3.5-5.1); SGOT 16 U/L (13-39); SGPT/ALT 10 U/L (7-52); SODIUM SERUM 138 mEq/L (136-145); TOTAL PROTEIN,SERUM 6.9 gm/dL (6.0-8.3)
--- NOTE | 2017-09-19 13:56 | ED Physician Chart ---
ED Chief Complaint/HPI - Patient Information Date Seen:: 09/19/17 Time Seen:: 13:53 Chief Complaint:: not feelimg well otherwise no significant complaint History of Present Illness:: as above he is frequent flyer came here about 25 times this year withoutt any appparant findings or symptoms Allergies:: Allergies Allergy/AdvReac Type Severity Reaction Status Date / Time acetaminophen [From [place]] Allergy Verified 09/19/17 12:36 aspirin Allergy Verified 09/19/17 12:36 carisoprodol [From [place]] Allergy Verified 09/19/17 12:36 gabapentin Allergy Verified 09/19/17 12:36 hydrocodone [From [place]] Allergy Verified 09/19/17 12:36 ketorolac [From Toradol] Allergy Verified 09/19/17 12:36 meperidine [From Demerol] Allergy Verified 09/19/17 12:36 promethazine Allergy Verified 09/19/17 12:36 tramadol Allergy Verified 09/19/17 12:36 Vitals:: Vital Signs - 8 hr 09/19/17 12:15 Temp 98.9 F HR 75 RR 16 BP 114/69 O2 Sat % 96 Historian:: Patient Family MD/PCP:: dr.dvid murry Review:: Nurse's Note Reviewed, Old Chart Reviewed (no serious complaints) ED Review of Systems - Review of Systems General/Constitutional: No fever, No chills, No weight loss, No weakness Skin: No skin lesions, No rash Head: No headache Eyes: No loss of vision, No pain ENT: No earache Neck: No neck pain Cardio Vascular: No chest pain, No palpitations, No orthopnea Pulmonary: No SOB, No cough GI: No nausea, No vomiting, No pain, No melena, No hematochezia, No constipation , No hematemesis G/U: No dysuria, No frequency, No hematuria Musculoskeletal: No bone or joint pain, No back pain, No muscle pain Endocrine: No polyuria, No polydipsia Psychiatric: No anxiety, No suicidal ideation, No auditory hallucination, No visual hallucination Hematopoietic: No bruising, No lymphadenopathy Allergic/Immuno: No urticaria, No angioedema Neurological: No syncope, No focal symptoms, Weakness, No paresthesia, No headache, No seizure, No dizziness, No confusion (no positive pe fimndings no scar good pe) ED Past Medical History - Past Medical History Past Medical History: Arthritis, Other (may be heart burn and nothing to do and hence comes to er from time to time without any demands) Family History: None Social History: Non Smoker, No Alcohol, No Drug Use, , Care Facility Surgical History: None Psychiatricy History: Depression, Other (may be psych problem sees his m.d. from time to time) Family Medical History - Family Member Mother History Unknown: Yes Ethnicity: Living Status: Hx Family Cancer: No Hx Family Congestive Heart Failure: No Hx Family Hypertension: No Hx Family Stroke: No Hx Family Diabetes: No Hx Family Seizures: No Hx Family Dementia: No Hx Family AIDS: No Hx Family HIV: No Hx Family COPD: No Hx Family Hepatitis: No Hx Family Psychiatric Problems: No Hx Family Tuberculosis: No Father History Unknown: Yes Ethnicity: Living Status: Hx Family Cancer: No Hx Family Coronary Artery Disease: No Hx Family Congestive Heart Failure: No Hx Family Hypertension: No Hx Family Stroke: No Hx Family Diabetes: No Hx Family Seizures: No Hx Family Dementia: No Hx Family AIDS: No Hx Family HIV: No Hx Family COPD: No Hx Family Hepatitis: No Hx Family Psychiatric Problems: No Hx Family Tuberculosis: No ED Physical Exam - Physical Examination General/Constitutional: Well-developed, well-nourished, Alert, No distress Head: Atraumatic Eyes: Lids, conjuctiva normal Skin: Nl inspection, No rash ENMT: External ears, nose nl Neck: Nontender Respiratory: Nl effort/Exclusion Cardio Vascular: RRR, NL S1 S2, Carotid/Femoral/Distal pulses equal bilaterally GI: No tenderness/rebounding/guarding, No organomegaly, No hernia, Normal BS's : No CVA tenderness Extremities: No tenderness or effusion Neuro/Psych: Alert/oriented ED Labs/Radiology/EKG Results - Lab Results Results: Laboratory Tests 09/19/17 09/19/17 09/19/17 12:30 12:30 12:30 WBC 6.4 RBC 4.57 Hgb 12.4 Hct 37.5 L MCV 82.2 MCH 27.3 MCHC Differential 33.1 RDW 16.4 Plt Count 193 MPV 8.9 Neutrophils % 60.7 Lymphocytes % 25.7 Monocytes % 10.1 H Eosinophils % 3.1 Basophils % 0.4 Sodium 138 Potassium 3.7 Chloride 105 Carbon Dioxide 25.7 Anion Gap 11.0 BUN 6 L Creatinine 1.3 Est GFR ( Amer) > 60.0 Est GFR (Non-Af Amer) > 60.0 BUN/Creatinine Ratio 4.6 Glucose 69 L Calcium 8.8 Total Bilirubin 0.5 AST 16 ALT 10 Alkaline Phosphatase 116 H Total Protein 6.9 Albumin 4.0 L Globulin 2.9 Albumin/Globulin Ratio 1.4 Urine Source RANDOM Urine Color YELLOW Urine Clarity CLEAR Urine pH 6.0 Ur Specific [place] 1.010 Urine Protein NEGATIVE Urine Glucose (UA) NEGATIVE Urine Ketones NEGATIVE Urine Blood NEGATIVE Urine Nitrate NEGATIVE Urine Bilirubin NEGATIVE Urine Urobilinogen 0.2 Ur Leukocyte Esterase NEGATIVE Urine RBC 0-2 H Urine WBC 0-2 Ur Epithelial Cells OCCASIONAL Urine Bacteria NONE SEEN ED Assessment - Assessment General Assessment: ryneusong flyer cqme 25 times qnd no complaints says may be i feel week but i feel ok otherwise bhavik lira wnl Critical Care Time: 38 miniutes Excludes all billable procedures: Yes This condition life threatening/high prob of deterioration: No - Procedures Informed Consent: Procedure/risk/benefits explained by MD: No Laceration Type:: None Inspection: No dirt/debris Post Procedure/Splint Exam: No Active Bleeding (all exam wnl ) ED Septic Shock - . Is Septic Shock (SBP<90, OR Lactate>4 mmol\L) present?: No - <6hrs of presentation: Vital Signs: Vital Signs - 8 hr 09/19/17 12:15 Temp 98.9 F HR 75 RR 16 BP 114/69 O2 Sat % 96 Assessment of Lungs: Lung CTA bilateral Assessment of Heart: RRR EKG Interpretation: NSR, No ST elevation, No ST depression Capillary refill evaluation: Capillary refill < 2 secs Skin Exam: Warm ED Discharge Plan - Patient Disposition Instructions: Abdominal Migraine
== END 2017-09-19 14:08 | disposition home or self-care (01) ==
LOC: ER 12:09
DX: R69 Illness, unspecified (principal); Z88.5 Allergy status to narcotic agent; Z88.8 Allergy status to other drugs, medicaments and biological substances
CPT/HCPCS: 36415-UA; 80053-TC; 81001-TC; 85025-TC; Z7502

== ENCOUNTER 2017-09-20 18:46 | Emergency (ER) | payer MEDICAID ==
--- NOTE | 2017-09-20 19:06 | ED Physician Chart ---
ED Chief Complaint/HPI - Patient Information Date Seen:: 09/20/17 Time Seen:: 19:04 Chief Complaint:: Abdominal pain History of Present Illness:: 57 yo male had abdominal pain, nausea, vomiting and diarrhea for 5 days. No nausea, vomiting or diarrhea at ER. Allergies:: Allergies Allergy/AdvReac Type Severity Reaction Status Date / Time acetaminophen [From [place]] Allergy Verified 09/19/17 12:36 aspirin Allergy Verified 09/19/17 12:36 carisoprodol [From [place]] Allergy Verified 09/19/17 12:36 gabapentin Allergy Verified 09/19/17 12:36 hydrocodone [From [place]] Allergy Verified 09/19/17 12:36 ketorolac [From Toradol] Allergy Verified 09/19/17 12:36 meperidine [From Demerol] Allergy Verified 09/19/17 12:36 promethazine Allergy Verified 09/19/17 12:36 tramadol Allergy Verified 09/19/17 12:36 Vitals:: Vital Signs - 8 hr 09/20/17 18:55 Temp 98.6 F HR 74 RR 19 BP 129/82 O2 Sat % 98 ED Review of Systems - Review of Systems General/Constitutional: No fever Skin: No skin lesions Head: No headache Eyes: No pain ENT: Earache Neck: Neck pain Cardio Vascular: No chest pain Pulmonary: No SOB GI: Nausea, Vomiting, Diarrhea Musculoskeletal: Back pain Neurological: No focal symptoms ED Past Medical History - Past Medical History Past Medical History: HTN, DM, Dyslipidemia, PUD/GERD, Other (vertigo) Social History: Smoker, No Alcohol, No Drug Use Surgical History: Appendectomy, Cholecystectomy Family Medical History - Family Member Mother History Unknown: Yes Ethnicity: Living Status: Hx Family Cancer: No Hx Family Coronary Artery Disease: No Hx Family Congestive Heart Failure: No Hx Family Hypertension: No Hx Family Stroke: No Hx Family Diabetes: No Hx Family Seizures: No Hx Family Dementia: No Hx Family AIDS: No Hx Family HIV: No Hx Family COPD: No Hx Family Hepatitis: No Hx Family Psychiatric Problems: No Hx Family Tuberculosis: No Father History Unknown: Yes Ethnicity: Living Status: Hx Family Cancer: No Hx Family Coronary Artery Disease: No Hx Family Congestive Heart Failure: No Hx Family Hypertension: No Hx Family Stroke: No Hx Family Diabetes: No Hx Family Seizures: No Hx Family Dementia: No Hx Family AIDS: No Hx Family HIV: No Hx Family COPD: No Hx Family Hepatitis: No Hx Family Psychiatric Problems: No Hx Family Tuberculosis: No ED Physical Exam - Physical Examination General/Constitutional: Awake Head: Atraumatic Eyes: PERRL Skin: No skin lesions ENMT: Nasal exam nl Neck: No nuchal rigidity Respiratory: Clear to Auscultation, No Wheeze/Rhonchi/Rales Cardio Vascular: RRR, No murmur, gallop, rubs, NL S1 S2 Other GI comments:: Epigastric tenderness Extremities: normal strength in all extremities Neuro/Psych: No focal deficits ED Labs/Radiology/EKG Results - Lab Results Results: Laboratory Last Values Urine Source RANDOM 09/20/17 19:10 Urine Color YELLOW 09/20/17 19:10 Urine Clarity CLEAR (CLEAR) 09/20/17 19:10 Urine pH 6.0 (4.6 - 8.0) 09/20/17 19:10 Ur Specific [place] 1.020 (1.005-1.030) 09/20/17 19:10 Urine Protein NEGATIVE mg/dL (NEGATIVE) 09/20/17 19:10 Urine Glucose (UA) NEGATIVE mg/dL (NEGATIVE) 09/20/17 19:10 Urine Ketones NEGATIVE mg/dL (NEGATIVE) 09/20/17 19:10 Urine Blood NEGATIVE (NEGATIVE) 09/20/17 19:10 Urine Nitrate NEGATIVE (NEGATIVE) 09/20/17 19:10 Urine Bilirubin NEGATIVE (NEGATIVE) 09/20/17 19:10 Urine Urobilinogen 0.2 E.U./dL (0.2 - 1.0) 09/20/17 19:10 Ur Leukocyte Esterase NEGATIVE (NEGATIVE) 09/20/17 19:10 Urine RBC NONE SEEN /hpf (0-5) 09/20/17 19:10 Urine WBC 0-2 /hpf (0-5) 09/20/17 19:10 Ur Epithelial Cells RARE /lpf (FEW) 09/20/17 19:10 Urine Bacteria OCCASIONAL /hpf (NONE SEEN) 09/20/17 19:10 Urine Opiates Screen NEGATIVE (NEGATIVE) 09/20/17 19:10 Urine Methadone Screen NEGATIVE (NEGATIVE) 09/20/17 19:10 Ur Barbiturates Screen POSITIVE (NEGATIVE) H 09/20/17 19:10 Ur Tricyclics Screen NEGATIVE (NEGATIVE) 09/20/17 19:10 Ur Phencyclidine Scrn NEGATIVE (NEGATIVE) 09/20/17 19:10 Amphetamines Screen NEGATIVE (NEGATIVE) 09/20/17 19:10 U Methamphetamines Scrn NEGATIVE (NEGATIVE) 09/20/17 19:10 U Benzodiazepines Scrn POSITIVE (NEGATIVE) H 09/20/17 19:10 U Cocaine Metab Screen POSITIVE (NEGATIVE) H 09/20/17 19:10 U Cannabinoids Screen NEGATIVE (NEGATIVE) 09/20/17 19:10 ED Assessment - Assessment General Assessment: Abdominal pain Substance abuse Assessment/Comments:: Pantoprazole 40mg PO x 1 D/c home ED Septic Shock - . Is Septic Shock (SBP<90, OR Lactate>4 mmol\L) present?: No - <6hrs of presentation: Vital Signs: Vital Signs - 8 hr 09/20/17 18:55 Temp 98.6 F HR 74 RR 19 BP 129/82 O2 Sat % 98 ED Reassessment (Disposition) - Reassessment Reassessment Condition:: Improved - Patient Disposition Discharge/Transfer:: Home ED Discharge Plan - Patient Disposition Admit/Discharge/Transfer: PT DISCHARGED HOME Condition at Disposition: Improved Instructions: Polysubstance Abuse, Abdominal Pain, [id number] Additional Instructions: FOLLOW UP WITH YOUR PRIMARY MEDICAL DOCTOR [facility] STOP USING ILLEGAL DRUGS
[2017-09-20 19:59] LABS: URINE MICROSCOPIC INDICATED? YES; URINE SOURCE RANDOM
[2017-09-20 20:19] LABS: URINE BILIRUBIN NEGATIVE (NEGATIVE); URINE BLOOD NEGATIVE (NEGATIVE); URINE GLUCOSE (UA) NEGATIVE (NEGATIVE); URINE KETONE NEGATIVE (NEGATIVE); URINE LEUKOCYTE ESTERASE NEGATIVE (NEGATIVE); URINE NITRATE NEGATIVE (NEGATIVE); URINE PROTEIN NEGATIVE (NEGATIVE); URINE UROBILINOGEN 0.2 E.U./dL (0.2 - 1.0)
[2017-09-20 20:28] LABS: URINE CLARITY CLEAR (CLEAR); URINE COLOR YELLOW
[2017-09-20 20:30] LABS: URINE BACTERIA OCCASIONAL /hpf (NONE SEEN); URINE EPITHELIAL CELLS RARE /lpf (FEW); URINE RBC NONE SEEN /hpf (0-5); URINE WBC 0-2 /hpf (0-5)
[2017-09-20 21:14] LABS: AMPHETAMINE URINE NEGATIVE (NEGATIVE); BARBITURATES URINE POSITIVE (NEGATIVE); BENZODIAZEPINES QUAL URINE POSITIVE (NEGATIVE); CANNABINOID THC NEGATIVE (NEGATIVE); COCAINE METABOLITE QUAL URINE POSITIVE (NEGATIVE); METHADONE URINE NEGATIVE (NEGATIVE); METHAMPHETAMINES QUAL URINE NEGATIVE (NEGATIVE); OPIATES (MORPHINE) QUAL. URINE NEGATIVE (NEGATIVE); PHENCYCLIDINE (PCP) URINE NEGATIVE (NEGATIVE); TRICYCLICS (TCA) QUAL. URINE NEGATIVE (NEGATIVE)
[2017-09-20] MEDS ORDERED: Pantoprazole 40 mg EC Tab PO STA (21:31)
[2017-09-20] MEDS ORDERED: Pantoprazole 40 mg EC Tab PO ONE (21:34)
== END 2017-09-20 21:40 | disposition home or self-care (01) ==
LOC: ER 18:46
DX: R10.9 Unspecified abdominal pain (principal); F19.10 Other psychoactive substance abuse, uncomplicated; I10 Essential (primary) hypertension; E11.9 Type 2 diabetes mellitus without complications; E78.5 Hyperlipidemia, unspecified; K21.9 Gastro-esophageal reflux disease without esophagitis; K27.9 Peptic ulcer, site unspecified, unspecified as acute or chronic, without hemorrhage or perforation; Z90.49 Acquired absence of other specified parts of digestive tract; Z88.8 Allergy status to other drugs, medicaments and biological substances; Z88.5 Allergy status to narcotic agent
CPT/HCPCS: 80307; 81001-TC; Z7502; Z7610

== ENCOUNTER 2017-09-25 15:15 | Emergency (ER) | payer MEDICAID ==
[2017-09-25] MEDS ORDERED: Pantoprazole 40 mg EC Tab PO STA (15:21)
[2017-09-25] MEDS ORDERED: Pantoprazole 40 mg EC Tab PO ONE (15:32)
[2017-09-25 15:42] LABS: % BASOPHILS 2.1 % (0.0-2.0); % EOSINOPHILS 1.4 % (0.0-5.0); % LYMPHOCYTES 22.7 % (20.0-50.0); % MONOCYTES 5.3 % (2.0-10.0); % NEUTROPHILS 68.5 % (40.0-80.0); BASOPHILE ABSOLUTE 0.2 Th/cumm (0-0.2); EOSINOPHILE ABSOLUTE 0.1 Th/cmm (0.1-0.4); HEMATOCRIT 39.7 % (41.0-60); LYMPHOCYTE ABSOLUTE 1.8 Th/cmm (1.5-3.0); MEAN CELL VOLUME 81.5 fl (80-99); MEAN CORPUSCULAR HEMOGLOBIN 26.6 pg (26.0-30.0); MEAN CORPUSCULAR HGB CONC 32.6 pg (28.0-36.0); MONOCYTE ABSOLUTE 0.4 Th/cmm (0.3-1.0); NEUTROPHILE ABSOLUTE 5.6 Th/cmm (1.8-8.0); PLATELET COUNT 197 Th/cmm (150-400); RED BLOOD COUNT 4.87 Mil/cmm (4.30-5.70); WHITE BLOOD COUNT 8.1 Th/cmm (4.8-10.8)
[2017-09-25 16:03] LABS: ANION GAP 11.9 (7.0-16.0); CALCIUM SERUM 9.1 mg/dL (8.6-10.3); CARBON DIOXIDE 23.9 mEq/L (21.0-31.0); CREATININE - SERUM 1.6 mg/dL (0.7-1.3); GFR NON AFRICAN-AMERICAN 47.9 ml/min; POTASSIUM SERUM 3.8 mEq/L (3.5-5.1)
--- NOTE | 2017-09-25 16:25 | ER Physician Documentation ---
DATE OF SERVICE: 09/25/2017 EMERGENCY ROOM EVALUATION AND TREATMENT The patient is allergy to TYLENOL, ASPIRIN, RISPERDAL, GABAPENTIN, HYDROCODONE, etc. The patient came his usual frequent flyer almost half of the month. He is always here, he started having some chest pain as usual any pain that he describes anything that comes to his mouth. He says at this time, he has pain in the chest again left and right side and the center going to the back and this lasted for 12 hours, slept for 12 hours. He woke up and then he came here for the same chest pain along with nausea and some gas trouble, etc. The patient does not have diabetes, hypertension, hypercholesterolemia, etc. REVIEW OF SYSTEMS: Essentially benign and negative. A 12-point review of system was done, essentially benign and negative. No COPD, no emphysema, no bronchitis. No history of any myocardial infarction, rheumatic fever, valvular heart disease, pericardial disease. No weakness. No history of any liver disease. He says he smokes but he does not drink. ALLERGIES: . PHYSICAL EXAMINATION: GENERAL: The patient appears to be awake, alert, oriented, not in any acute cardiorespiratory distress. Conjunctivae are pink. Sclerae are white. HEENT: Normal. Jugular venous pressure is normal. There is no edema, no cyanosis, no petechiae, ecchymosis. CHEST: Clear. Trachea being central fairly good air entry in both lungs without any rales, rhonchi, or wheezing. ABDOMEN: Soft, benign and negative. CENTRAL NERVOUS SYSTEM: Within normal limits. EKG showing left atrial enlargement. LABORATORY DATA: Other labs are awaited. The patient is a frequent flyer almost half of the month. He is almost year every second, third day, fourth day, fifth day in a week and he comes over here and every time he goes home there is nothing acutely is detected. At this time also his EKG does not show anything abnormal. CLINICAL IMPRESSION: The patient has chest pain, I doubt the patient has any myocardial infarction. There is no evidence of any myocardial infarction by EKG. Troponin CPK is awaited and other lab workups are ordered. The patient's other lab workup has been awaited. ADDENDUM A 57-year-old male patient. EKG is within normal limits. The patient's white count is 8.1, hemoglobin is 13, hematocrit is 39.7. Neutrophils are 68.5, monocytes, lymphocytes is normal. Electrolytes are within normal limits. BUN is 13, creatinine is 1.6. Glucose, triglycerides, CPK etc., appears to be within normal limits. I have ordered Troponin I. LDL is 58. HDL is 29. So we are just waiting for troponin I. Otherwise, the patient could be discharged home. I do not find anything cardiac matute or any other pathology being present and the patient will wait for LDL, troponin I. If the troponin I is normal the patient will be discharged for home. JOB# [id number]
--- NOTE | 2017-09-25 19:31 | Transfer Summary ---
DATE OF TRANSFER: 09/25/2017 ADDENDUM A 57-year-old male patient. EKG is within normal limits. The patient's white count is 8.1, hemoglobin is 13, hematocrit is 39.7. Neutrophils are 68.5, monocytes, lymphocytes is normal. Electrolytes are within normal limits. BUN is 13, creatinine is 1.6. Glucose, triglycerides, CPK etc., appears to be within normal limits. I have ordered Troponin I. LDL is 58. HDL is 29. So we are just waiting for troponin I. Otherwise, the patient could be discharged home. I do not find anything cardiac matute or any other pathology being present and the patient will wait for LDL, troponin I. If the troponin I is normal the patient will be discharged for home. JOB# [id number]
== END 2017-09-25 17:18 | disposition home or self-care (01) ==
LOC: ER 15:15
DX: R07.89 Other chest pain (principal)
CPT/HCPCS: 36415-UA; 80048-TC; 80061-TC; 82550-TC; 82553; 83735-TC; 83880-TC; 84484-TC; 85025-TC; 93005; Z7610

== ENCOUNTER 2017-09-25 22:08 | Emergency (ER) | payer MEDICAID ==
--- NOTE | 2017-09-25 22:38 | ED Physician Chart ---
ED Chief Complaint/HPI - Patient Information Date Seen:: 09/25/17 Time Seen:: 22:13 Chief Complaint:: CHEST PAIN History of Present Illness:: THIS IS A 57 YO MALE WHO WAS HERE EARLIER TODAY FOR AN EVALUATION. HE RETURNED TONIGHT WITH A COMPLAIN OF CHEST PAIN. HE IS HERE FREQUENTLY FOR THE SAME REASONS AND IS HOMELESS. Allergies:: Allergies Allergy/AdvReac Type Severity Reaction Status Date / Time acetaminophen [From [place]] Allergy Verified 09/19/17 12:36 aspirin Allergy Verified 09/19/17 12:36 carisoprodol [From [place]] Allergy Verified 09/19/17 12:36 gabapentin Allergy Verified 09/19/17 12:36 hydrocodone [From [place]] Allergy Verified 09/19/17 12:36 ibuprofen [From Motrin] Allergy Verified 09/25/17 15:22 ketorolac [From Toradol] Allergy Verified 09/19/17 12:36 meperidine [From Demerol] Allergy Verified 09/19/17 12:36 promethazine Allergy Verified 09/19/17 12:36 tramadol Allergy Verified 09/19/17 12:36 Vitals:: Vital Signs - 8 hr 09/25/17 22:10 Temp 98.1 F HR 90 RR 18 BP 139/60 O2 Sat % 98 Historian:: Patient, Medical Records Review:: Nurse's Note Reviewed, Old Chart Reviewed ED Review of Systems - Review of Systems General/Constitutional: No fever, No chills, No weight loss, No weakness, No diaphoresis, No edema, No loss of appetite Skin: No skin lesions, No rash, No bruising Head: No headache, No light-headedness Eyes: No loss of vision, No pain, No diplopia ENT: No earache, No nasal drainage, No sore throat, No tinnitus Neck: No neck pain, No swelling, No thyromegaly, No stiffness, No mass noted Cardio Vascular: Chest pain, No palpitations, No PND, No orthopnea, No edema Pulmonary: No SOB, No cough, No sputum, No wheezing GI: No nausea, No vomiting, No diarrhea, No pain, No melena, No hematochezia, No constipation, No hematemesis G/U: No dysuria, No frequency, No hematuria Musculoskeletal: No bone or joint pain, No back pain, No muscle pain Endocrine: No polyuria, No polydipsia Psychiatric: No prior psych history, No depression, No anxiety, No suicidal ideation Hematopoietic: No bruising, No lymphadenopathy Allergic/Immuno: No urticaria, No angioedema Neurological: No syncope, No focal symptoms, No weakness, No paresthesia, No headache, No seizure, No dizziness, No confusion, No vertigo ED Past Medical History - Past Medical History Obtainable: Yes Past Medical History: HTN, Dyslipidemia, Other (DIVERTICULOSIS, CHRONIC PAIN, ANXIETY) Family History: None Social History: Smoker, Alcohol, Illicit Drug Use, Single Surgical History: Appendectomy, Cholecystectomy Medication: Reviewed Family Medical History - Family Member Mother History Unknown: Yes Ethnicity: Living Status: Hx Family Cancer: No Hx Family Coronary Artery Disease: No Hx Family Congestive Heart Failure: No Hx Family Hypertension: No Hx Family Stroke: No Hx Family Diabetes: No Hx Family Seizures: No Hx Family Dementia: No Hx Family AIDS: No Hx Family HIV: No Hx Family COPD: No Hx Family Hepatitis: No Hx Family Psychiatric Problems: No Hx Family Tuberculosis: No Father History Unknown: Yes Ethnicity: Living Status: Hx Family Cancer: No Hx Family Coronary Artery Disease: No Hx Family Congestive Heart Failure: No Hx Family Hypertension: No Hx Family Stroke: No Hx Family Diabetes: No Hx Family Seizures: No Hx Family Dementia: No Hx Family AIDS: No Hx Family HIV: No Hx Family COPD: No Hx Family Hepatitis: No Hx Family Psychiatric Problems: No Hx Family Tuberculosis: No ED Physical Exam - Physical Examination General/Constitutional: Awake, Well-developed, well-nourished, Alert, No distress, GCS 15, Non-toxic appearing, Ambulatory Head: Atraumatic Eyes: Lids, conjuctiva normal, PERRL, EOMI Skin: Nl inspection, No rash, No skin lesions, No ecchymosis, Well hydrated, No lymphadenopathy ENMT: External ears, nose nl, Nasal exam nl, Lips, teeth, gums nl Neck: Nontender, Full ROM w/o pain, No JVD, No nuchal rigidity, No bruit, No mass, No stridor Respiratory: Nl effort/Exclusion, Clear to Auscultation, No Wheeze/Rhonchi/Rales Cardio Vascular: RRR, No murmur, gallop, rubs, NL S1 S2 GI: No tenderness/rebounding/guarding, No organomegaly, No hernia, Normal BS's, Nondistended, No mass/bruits, No McBurney tenderness : No CVA tenderness Extremities: No tenderness or effusion, Full ROM, normal strength in all extremities, No edema, Normal digits & nails Neuro/Psych: Alert/oriented, DTR's symmetric, Normal sensory exam, Normal motor strength, Judgement/insight normal, Mood normal, Normal gait, No focal deficits Misc: Normal back, No paraspinal tenderness ED Labs/Radiology/EKG Results - Lab Results Results: Laboratory Results - last 24 hr 09/25/17 09/25/17 09/25/17 22:40 22:40 23:00 Sodium 136 Potassium 3.7 Chloride 105 Carbon Dioxide 24.1 Anion Gap 10.6 BUN 13 Creatinine 1.5 H Est GFR ( Amer) > 60.0 Est GFR (Non-Af Amer) 51.6 BUN/Creatinine Ratio 8.7 Glucose 117 H Calcium 9.1 Total Bilirubin 0.3 AST 18 ALT 9 Alkaline Phosphatase 95 Troponin I < 0.01 L Total Protein 6.8 Albumin 4.0 L Globulin 2.8 Albumin/Globulin Ratio 1.4 Urine Source CLEAN C Urine Color YELLOW Urine Clarity CLEAR Urine pH 6.0 Ur Specific [place] <= 1.005 Urine Protein NEGATIVE Urine Glucose (UA) NEGATIVE Urine Ketones NEGATIVE Urine Blood NEGATIVE Urine Nitrate NEGATIVE Urine Bilirubin NEGATIVE Urine Urobilinogen 0.2 Ur Leukocyte Esterase NEGATIVE Urine RBC 0-2 H Urine WBC 0-2 Ur Epithelial Cells NONE SEEN Urine Bacteria FEW - EKG Interpretations EKG Time:: 22:32 Rate & Rhythm: 89 SINUS Pearson: RIGHT AXIS ED Assessment - Assessment General Assessment: CHEST WALL PAIN THE PATIENT ELOPED AND DID NOT WAIT FOR HIS DISCHARGE MEDICATIONS. ED Septic Shock - . Is Septic Shock (SBP<90, OR Lactate>4 mmol\L) present?: No - <6hrs of presentation: Vital Signs: Vital Signs - 8 hr 09/25/17 22:10 Temp 98.1 F HR 90 RR 18 BP 139/60 O2 Sat % 98 ED Discharge Plan - Patient Disposition Admit/Discharge/Transfer: PATIENT ELOPED Condition at Disposition: Improved Instructions: Chest Wall Pain, [id number] Additional Instructions: MAKE A FOLLOW UP WITH COMMUNITY CLINICS, DO SOME RELAXATION TECHNIQUES.
[2017-09-25 23:09] LABS: ALB/GLOB RATIO 1.4 (1.0-1.8); ALKALINE PHOSPHATASE 95 U/L (34-104); ANION GAP 10.6 (7.0-16.0); BILIRUBIN,TOTAL 0.3 mg/dL (0.3-1.0); BUN - UREA NITROGEN 13 mg/dL (7-25); CALCIUM SERUM 9.1 mg/dL (8.6-10.3); CARBON DIOXIDE 24.1 mEq/L (21.0-31.0); CHLORIDE 105 mEq/L (98-107); CREATININE - SERUM 1.5 mg/dL (0.7-1.3); GFR AFRICAN-AMERICAN > 60.0 ml/min (>90); GFR NON AFRICAN-AMERICAN 51.6 ml/min; GLUCOSE 117 mg/dL (70-105); POTASSIUM SERUM 3.7 mEq/L (3.5-5.1); SGOT 18 U/L (13-39); SGPT/ALT 9 U/L (7-52); SODIUM SERUM 136 mEq/L (136-145); TOTAL PROTEIN,SERUM 6.8 gm/dL (6.0-8.3)
[2017-09-25 23:19] LABS: URINE MICROSCOPIC INDICATED? YES; URINE SOURCE CLEAN C
[2017-09-25 23:22] LABS: URINE BILIRUBIN NEGATIVE (NEGATIVE); URINE BLOOD NEGATIVE (NEGATIVE); URINE GLUCOSE (UA) NEGATIVE (NEGATIVE); URINE KETONE NEGATIVE (NEGATIVE); URINE LEUKOCYTE ESTERASE NEGATIVE (NEGATIVE); URINE NITRATE NEGATIVE (NEGATIVE); URINE PROTEIN NEGATIVE (NEGATIVE); URINE UROBILINOGEN 0.2 E.U./dL (0.2 - 1.0)
[2017-09-25 23:51] LABS: URINE CLARITY CLEAR (CLEAR); URINE COLOR YELLOW
[2017-09-25 23:52] LABS: URINE BACTERIA FEW /hpf (NONE SEEN); URINE EPITHELIAL CELLS NONE SEEN /lpf (FEW); URINE RBC 0-2 /hpf (0-5); URINE WBC 0-2 /hpf (0-5)
[2017-09-26 19:19] LABS: % BASOPHILS 0.4 % (0.0-2.0); % EOSINOPHILS 1.8 % (0.0-5.0); % LYMPHOCYTES 26.2 % (20.0-50.0); % MONOCYTES 7.3 % (2.0-10.0); % NEUTROPHILS 64.3 % (40.0-80.0); EOSINOPHILE ABSOLUTE 0.1 Th/cmm (0.1-0.4); HEMATOCRIT 38.3 % (41.0-60); LYMPHOCYTE ABSOLUTE 1.9 Th/cmm (1.5-3.0); MEAN CELL VOLUME 82.1 fl (80-99); MEAN CORPUSCULAR HEMOGLOBIN 27.9 pg (26.0-30.0); MEAN PLATELET VOLUME 8.8 fl; MONOCYTE ABSOLUTE 0.5 Th/cmm (0.3-1.0); NEUTROPHILE ABSOLUTE 4.7 Th/cmm (1.8-8.0); PLATELET COUNT 185 Th/cmm (150-400); RED BLOOD COUNT 4.66 Mil/cmm (4.30-5.70); RED CELL DISTRIBUTION WIDTH 16.5 % (11.5-20.0); WHITE BLOOD COUNT 7.2 Th/cmm (4.8-10.8)
== END 2017-09-26 00:20 | disposition left against medical advice (07) ==
LOC: ER 22:08
DX: R07.89 Other chest pain (principal); I10 Essential (primary) hypertension; E78.5 Hyperlipidemia, unspecified; Z90.49 Acquired absence of other specified parts of digestive tract; Z88.5 Allergy status to narcotic agent; Z88.8 Allergy status to other drugs, medicaments and biological substances
CPT/HCPCS: 99285; 93005; 84484; 36415; 85025; 81001; 80053; Q0162

== ENCOUNTER 2017-09-26 07:24 | Emergency (ER) | payer MEDICAID ==
[2017-09-26] MEDS ORDERED: Sodium Chloride 0.9% 1,000 ML IV ONE (07:52)
--- NOTE | 2017-09-26 07:53 | ED Physician Chart ---
ED Chief Complaint/HPI - Patient Information Date Seen:: 09/26/17 Time Seen:: 07:25 Chief Complaint:: NAUSEA AND VOMITING THIS AM History of Present Illness:: THIS 57 YEAR OLD MALE IS WELL KNOWN TO ME AND VISITS THE ER [id number]. TODAY HE IS COMPLAINING OF NAUSEA, DIARRHEA AND MULTIPLE EPISODES OF VOMITING. HAS MILD DISCOMFORT IN THE LOWER PORTION OF THE ABDOMEN. HE RATES THE DISCOMFORT A 2/10 SEVERITY AND THERE IS NO RADIATION TO THE BACK OR INTO THE CHEST. THERE ARE NO EXACERBATING OR RELIEVING CHARACTERISTICS TO THE PAIN. HE DENIES ANY HEMATEMESIS OR MELENA. THE ONSET OF THE VOMITING COINCIDED WITH WAKING FROM SLEEP. THE PATIENT IS STATUS POST CHOLECYSTECTOMY AND APPENDECTOMY. DRINKS ALCOHOL BUT DOES NOT USE DRUGS. Allergies:: Allergies Allergy/AdvReac Type Severity Reaction Status Date / Time acetaminophen [From [place]] Allergy Verified 09/26/17 07:45 aspirin Allergy Verified 09/26/17 07:45 carisoprodol [From [place]] Allergy Verified 09/26/17 07:45 gabapentin Allergy Verified 09/26/17 07:45 hydrocodone [From [place]] Allergy Verified 09/26/17 07:45 ibuprofen [From Motrin] Allergy Verified 09/26/17 07:45 ketorolac [From Toradol] Allergy Verified 09/26/17 07:45 meperidine [From Demerol] Allergy Verified 09/26/17 07:45 promethazine Allergy Verified 09/26/17 07:45 tramadol Allergy Verified 09/26/17 07:45 Vitals:: Vital Signs - 8 hr 09/26/17 07:46 Temp 98.4 F HR 77 RR 18 BP 101/63 O2 Sat % 98 ED Review of Systems - Review of Systems General/Constitutional: No fever, No chills, No weakness, No edema, Loss of appetite Skin: No skin lesions, No bruising Head: No headache, No light-headedness Eyes: No loss of vision, No pain, No diplopia ENT: No earache, No sore throat, No tinnitus Neck: No neck pain, No thyromegaly, No stiffness, Other ( THIS PATIENT HAS HAD A CERVICAL LYMPH NODE 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 THE CURRENT SIZE OF THE NODULE IS ABOUT TWO THIRDS OF WHAT IT WAS AT ITS LARGEST SIZE) Cardio Vascular: No chest pain, No palpitations, No edema Pulmonary: No SOB, No cough GI: Nausea, Vomiting, Diarrhea, Pain G/U: No dysuria, No hematuria Musculoskeletal: No bone or joint pain, No back pain, Other ( THE PATIENT FREQUENTLY HAS LOW BACK PAIN AND LOWER ABDOMINAL PAIN.) Psychiatric: No prior psych history ED Past Medical History - Past Medical History Past Medical History: DM, CAD, Arthritis Surgical History: Appendectomy, Cholecystectomy Psychiatricy History: Depression Medication: None Family Medical History - Family Member Mother History Unknown: Yes Ethnicity: Living Status: Hx Family Cancer: No Hx Family Coronary Artery Disease: No Hx Family Congestive Heart Failure: No Hx Family Hypertension: No Hx Family Stroke: No Hx Family Diabetes: No Hx Family Seizures: No Hx Family Dementia: No Hx Family AIDS: No Hx Family HIV: No Hx Family COPD: No Hx Family Hepatitis: No Hx Family Psychiatric Problems: No Hx Family Tuberculosis: No Father History Unknown: Yes Ethnicity: Living Status: Hx Family Cancer: No Hx Family Coronary Artery Disease: No Hx Family Congestive Heart Failure: No Hx Family Hypertension: No Hx Family Stroke: No Hx Family Diabetes: No Hx Family Seizures: No Hx Family Dementia: No Hx Family AIDS: No Hx Family HIV: No Hx Family COPD: No Hx Family Hepatitis: No Hx Family Psychiatric Problems: No Hx Family Tuberculosis: No ED Labs/Radiology/EKG Results - Lab Results Results: NO LABORATORY STUDIES FOR RADIOGRAPHIC STUDIES WERE INDICATED, I HAVE SENT OFF LABS ON MULTIPLE OCCASIONS AND THEY HAVE CONSISTENTLY COME BACK NORMAL. THE SAME HOLDS TRUE FOR CT SCANS OF THE SPINE, ABDOMEN AND PELVIS. ED Assessment - Assessment General Assessment: CASE SUMMARY: THE [id number] MALE PRESENTS TO THE EMERGENCY DEPARTMENT WITH NAUSEA, MULTIPLE EPISODES OF VOMITING THIS A.M., AND THREE EPISODES OF DIARRHEA TODAY. ON PHYSICAL EXAMINATION THE ABDOMEN IS SOFT AND NONTENDER AND BOWEL SOUND WERE NORMAL. HIS SYMPTOMS WERE ADDRESSED WITH 1000 ML OF NORMAL SALINE RUN IN WIDE-OPEN AND 4 MG OF IV ZOFRAN. THE PATIENT'S SYMPTOMS RESOLVED AND THE PATIENT LEFT THE EMERGENCY DEPARTMENT WITHOUT NOTIFYING STAFF IS FREQUENTLY HAPPENED DISCHARGED IN STABLE CONDITION. MDM DDX VOMIING AND DIARRHEA: NOT APPENDICITIS BASED ON HIS HISTORY OF PRIOR APPENDECTOMY. NOT CHOLECYSTITIS BASED ON PRIOR HISTORY OF CHOLECYSTECTOMY. NOT BOWEL OBSTRUCTION DUE TO THE PRESENCE OF DIARRHEA. NOT ISCHEMIC BOWEL DISEASE BASED ON PHYSICAL EXAMINATION. ED Septic Shock - . Is Septic Shock (SBP<90, OR Lactate>4 mmol\L) present?: No - <6hrs of presentation: Vital Signs: Vital Signs - 8 hr 09/26/17 07:46 Temp 98.4 F HR 77 RR 18 BP 101/63 O2 Sat % 98 ED Reassessment (Disposition) - Reassessment Reassessment Condition:: Improved - Diagnosis Diagnosis:: GASTROENTERITIS - Patient Disposition Discharge/Transfer:: Mike/ANNE-MARIE ED Discharge Plan - Patient Disposition Admit/Discharge/Transfer: PT DISCHARGED HOME Condition at Disposition: Stable Instructions: Nausea and Vomiting Additional Instructions: Follow-up with primary MD in 2-3 days.
[2017-09-26] MEDS ORDERED: Metoclopramide 5 mg/mL 2mL Vial IVP STA (07:57)
[2017-09-26] MEDS ORDERED: Metoclopramide 5 mg/mL 2mL Vial ONE (08:11)
== END 2017-09-26 09:30 | disposition home or self-care (01) ==
LOC: ER 07:24
DX: K52.9 Noninfective gastroenteritis and colitis, unspecified (principal); E11.9 Type 2 diabetes mellitus without complications; I25.10 Atherosclerotic heart disease of native coronary artery without angina pectoris; Z90.49 Acquired absence of other specified parts of digestive tract
CPT/HCPCS: 99284; 96374; 96375; J2405; J2765; J1200; J7030; Z7502

== ENCOUNTER 2017-09-26 20:31 | Emergency (ER) | payer MEDICAID ==
--- NOTE | 2017-09-26 20:45 | ED Physician Chart ---
ED Chief Complaint/HPI - Patient Information Date Seen:: 09/26/17 Time Seen:: 20:38 Chief Complaint:: tooth ache History of Present Illness:: THIS IS A 57 YO MALE WITH A COMPLAINT OF NAUSEA AND A TOOTHACHE THIS AFTERNOON. THIS PATIENT WAS SEEN BY ME LAST NIGHT AND ELOPED LEAVING HIS PERSCRIPTIONS. HE WAS ALSO BACK IN THE ER AT [address] GILMORE AND TREATED. HE DENIES CHEST PAIN, ABDOMINAL PAIN AND HEAD PAIN THIS PM. Allergies:: Allergies Allergy/AdvReac Type Severity Reaction Status Date / Time acetaminophen [From [place]] Allergy Verified 09/26/17 20:31 aspirin Allergy Verified 09/26/17 20:31 carisoprodol [From [place]] Allergy Verified 09/26/17 20:31 gabapentin Allergy Verified 09/26/17 20:31 hydrocodone [From [place]] Allergy Verified 09/26/17 20:31 ibuprofen [From Motrin] Allergy Verified 09/26/17 20:31 ketorolac [From Toradol] Allergy Verified 09/26/17 20:31 meperidine [From Demerol] Allergy Verified 09/26/17 20:31 promethazine Allergy Verified 09/26/17 20:31 tramadol Allergy Verified 09/26/17 20:31 Vitals:: Vital Signs - 8 hr 09/26/17 20:32 Temp 97.9 F HR 82 RR 20 BP 131/82 O2 Sat % 97 Historian:: Patient Review:: Nurse's Note Reviewed, Old Chart Reviewed ED Review of Systems - Review of Systems General/Constitutional: No fever, No chills, No weight loss, No weakness, No diaphoresis, No edema, No loss of appetite Skin: No skin lesions, No rash, No bruising Head: No headache, No light-headedness Eyes: No loss of vision, No pain, No diplopia ENT: No earache, No nasal drainage, No sore throat, No tinnitus, Other ( TOOTHACHE) Neck: No neck pain, No swelling, No thyromegaly, No stiffness, No mass noted Cardio Vascular: No chest pain, No palpitations, No PND, No orthopnea, No edema Pulmonary: No SOB, No cough, No sputum, No wheezing GI: Nausea, No vomiting, No diarrhea, No pain, No melena, No hematochezia, No constipation, No hematemesis G/U: No dysuria, No frequency, No hematuria Musculoskeletal: No bone or joint pain, No back pain, No muscle pain Endocrine: No polyuria, No polydipsia Psychiatric: No prior psych history, No depression, No anxiety, No suicidal ideation Hematopoietic: No bruising, No lymphadenopathy Allergic/Immuno: No urticaria, No angioedema Neurological: No syncope, No focal symptoms, No weakness, No paresthesia, No headache, No seizure, No dizziness, No confusion, No vertigo ED Past Medical History - Past Medical History Obtainable: Yes Past Medical History: No significant medical hx Family History: None Social History: Smoker, Alcohol, Illicit Drug Use Psychiatricy History: None Medication: Reviewed Family Medical History - Family Member Mother History Unknown: Yes Ethnicity: Living Status: Hx Family Cancer: No Hx Family Coronary Artery Disease: No Hx Family Congestive Heart Failure: No Hx Family Hypertension: No Hx Family Stroke: No Hx Family Diabetes: No Hx Family Seizures: No Hx Family Dementia: No Hx Family AIDS: No Hx Family HIV: No Hx Family COPD: No Hx Family Hepatitis: No Hx Family Psychiatric Problems: No Hx Family Tuberculosis: No Father History Unknown: Yes Ethnicity: Living Status: Hx Family Cancer: No Hx Family Coronary Artery Disease: No Hx Family Congestive Heart Failure: No Hx Family Hypertension: No Hx Family Stroke: No Hx Family Diabetes: No Hx Family Seizures: No Hx Family Dementia: No Hx Family AIDS: No Hx Family HIV: No Hx Family COPD: No Hx Family Hepatitis: No Hx Family Psychiatric Problems: No Hx Family Tuberculosis: No ED Physical Exam - Physical Examination General/Constitutional: Awake, Well-developed, well-nourished, Alert, No distress, GCS 15, Non-toxic appearing, Ambulatory Head: Atraumatic Eyes: Lids, conjuctiva normal, PERRL, EOMI Skin: Nl inspection, No rash, No skin lesions, No ecchymosis, Well hydrated, No lymphadenopathy ENMT: External ears, nose nl, Nasal exam nl, Lips, teeth, gums nl Neck: Nontender, Full ROM w/o pain, No JVD, No nuchal rigidity, No bruit, No mass, No stridor Respiratory: Nl effort/Exclusion, Clear to Auscultation, No Wheeze/Rhonchi/Rales Cardio Vascular: RRR, No murmur, gallop, rubs, NL S1 S2 GI: No tenderness/rebounding/guarding, No organomegaly, No hernia, Normal BS's, Nondistended, No mass/bruits, No McBurney tenderness : No CVA tenderness Extremities: No tenderness or effusion, Full ROM, normal strength in all extremities, No edema, Normal digits & nails Neuro/Psych: Alert/oriented, DTR's symmetric, Normal sensory exam, Normal motor strength, Judgement/insight normal, Mood normal, Normal gait, No focal deficits Misc: Normal back, No paraspinal tenderness ED Labs/Radiology/EKG Results - Lab Results Results: Abnormal Lab Results 09/26/17 09/26/17 09/26/17 20:36 21:00 21:00 WBC 7.0 RBC 4.61 Hgb 12.4 Hct 37.8 L MCV 82.0 MCH 27.0 MCHC Differential 32.9 RDW 16.0 Plt Count 182 MPV 8.7 Neutrophils % 61.5 Lymphocytes % 25.8 Monocytes % 9.5 Eosinophils % 2.7 Basophils % 0.5 PT 10.4 INR 1.00 Sodium Potassium Chloride Carbon Dioxide Anion Gap BUN Creatinine Est GFR ( Amer) Est GFR (Non-Af Amer) BUN/Creatinine Ratio Glucose Calcium Total Bilirubin AST ALT Alkaline Phosphatase Troponin I Total Protein Albumin Globulin Albumin/Globulin Ratio Triglycerides 92 Cholesterol 106 LDL Cholesterol Direct 57 L HDL Cholesterol 33 TSH 09/26/17 09/26/17 09/26/17 21:00 21:00 21:00 WBC RBC Hgb Hct MCV MCH MCHC Differential RDW Plt Count MPV Neutrophils % Lymphocytes % Monocytes % Eosinophils % Basophils % PT INR Sodium 137 Potassium 3.8 Chloride 107 Carbon Dioxide 24.0 Anion Gap 9.8 BUN 11 Creatinine 1.4 H Est GFR ( Amer) > 60.0 Est GFR (Non-Af Amer) 55.9 BUN/Creatinine Ratio 7.9 Glucose 73 Calcium 8.8 Total Bilirubin 0.3 AST 15 ALT 9 Alkaline Phosphatase 91 Troponin I < 0.01 L Total Protein 6.5 Albumin 3.9 L Globulin 2.6 Albumin/Globulin Ratio 1.5 Triglycerides Cholesterol LDL Cholesterol Direct HDL Cholesterol TSH 1.91 ED Septic Shock - . Is Septic Shock (SBP<90, OR Lactate>4 mmol\L) present?: No - <6hrs of presentation: Vital Signs: Vital Signs - 8 hr 09/26/ 20:32 Temp 97.9 F HR 82 RR 20 BP 131/82 O2 Sat % 97 ED Reassessment (Disposition) - Reassessment Reassessment Condition:: Improved - Diagnosis Diagnosis:: TOOTHACHE - Aftercare/Follow up Instructions Aftercare/Follow-Up Instructions:: Counseled pt regarding lab results/diagnosis & need follow up, Refer to Discharge Instructions, Counseled pt & family regarding lab results/diagnosis & need follow up - Patient Disposition Discharge/Transfer:: Home Condition at Disposition:: Improved ED Discharge Plan - Patient Disposition Admit/Discharge/Transfer: PT DISCHARGED HOME Condition at Disposition: Improved Instructions: Nausea, Adult, Dental Pain, Dental Caries
[2017-09-26 21:11] LABS: % BASOPHILS 0.5 % (0.0-2.0); % EOSINOPHILS 2.7 % (0.0-5.0); % LYMPHOCYTES 25.8 % (20.0-50.0); % MONOCYTES 9.5 % (2.0-10.0); % NEUTROPHILS 61.5 % (40.0-80.0); EOSINOPHILE ABSOLUTE 0.2 Th/cmm (0.1-0.4); HEMATOCRIT 37.8 % (41.0-60); HEMOGLOBIN 12.4 gm/dL (12-16); LYMPHOCYTE ABSOLUTE 1.8 Th/cmm (1.5-3.0); MEAN CORPUSCULAR HGB CONC 32.9 pg (28.0-36.0); MEAN PLATELET VOLUME 8.7 fl; MONOCYTE ABSOLUTE 0.7 Th/cmm (0.3-1.0); NEUTROPHILE ABSOLUTE 4.3 Th/cmm (1.8-8.0); PLATELET COUNT 182 Th/cmm (150-400); RED BLOOD COUNT 4.61 Mil/cmm (4.30-5.70)
[2017-09-26 21:28] LABS: ALB/GLOB RATIO 1.5 (1.0-1.8); ALBUMIN 3.9 gm/dL (4.2-5.5); ALKALINE PHOSPHATASE 91 U/L (34-104); ANION GAP 9.8 (7.0-16.0); BILIRUBIN,TOTAL 0.3 mg/dL (0.3-1.0); BUN - UREA NITROGEN 11 mg/dL (7-25); CALCIUM SERUM 8.8 mg/dL (8.6-10.3); CHLORIDE 107 mEq/L (98-107); CREATININE - SERUM 1.4 mg/dL (0.7-1.3); GFR AFRICAN-AMERICAN > 60.0 ml/min (>90); GFR NON AFRICAN-AMERICAN 55.9 ml/min; GLUCOSE 73 mg/dL (70-105); POTASSIUM SERUM 3.8 mEq/L (3.5-5.1); SGOT 15 U/L (13-39); SGPT/ALT 9 U/L (7-52); SODIUM SERUM 137 mEq/L (136-145); TOTAL PROTEIN,SERUM 6.5 gm/dL (6.0-8.3)
[2017-09-26 21:29] LABS: CHOLESTEROL 106 mg/dL (<200); HDL -HIGH DENSITY LIPOPROTEIN 33 mg/dL (23-92); TRIGLYCERIDES 92 mg/dL (<150)
[2017-09-26 21:34] LABS: PROTHROMBIN TIME (TEST) 10.4 SECONDS (9.5-11.5)
== END 2017-09-26 21:45 | disposition home or self-care (01) ==
LOC: ER 20:31
DX: K08.89 Other specified disorders of teeth and supporting structures (principal); F17.200 Nicotine dependence, unspecified, uncomplicated; Z88.5 Allergy status to narcotic agent; Z88.8 Allergy status to other drugs, medicaments and biological substances
CPT/HCPCS: 36415-UA; 80053-TC; 80061-TC; 84443-TC; 84484-TC; 85025-TC; 85610-TC; 93005; Z7502

== ENCOUNTER 2017-09-30 08:55 | Emergency (ER) | payer MEDICAID ==
--- NOTE | 2017-09-30 09:26 | ED Physician Chart ---
ED Chief Complaint/HPI - Patient Information Date Seen:: 09/30/17 Time Seen:: 08:55 Chief Complaint:: Right Chest Pain History of Present Illness:: onset x 3 days of intermittent, dull, MS type localized nonradiating right anterior chest wall pain which resolved upon ER arrival; pt denies trauma, LOC, H/As, S/T, neck pain, cough, exertional C/P, left C/P, SOB, Abd. Pain, A/N/V/D/C , fever, chills, bleeding, or urinary s/s Allergies:: Allergies Allergy/AdvReac Type Severity Reaction Status Date / Time acetaminophen [From [place]] Allergy Verified 09/30/17 09:04 aspirin Allergy Verified 09/30/17 09:04 carisoprodol [From [place]] Allergy Verified 09/30/17 09:04 gabapentin Allergy Verified 09/30/17 09:04 hydrocodone [From [place]] Allergy Verified 09/30/17 09:04 ibuprofen [From Motrin] Allergy Verified 09/30/17 09:04 ketorolac [From Toradol] Allergy Verified 09/30/17 09:04 meperidine [From Demerol] Allergy Verified 09/30/17 09:04 promethazine Allergy Verified 09/30/17 09:04 tramadol Allergy Verified 09/30/17 09:04 Vitals:: Vital Signs - 8 hr 09/30/17 09/30/17 08:55 09:15 Temp 98.7 F HR 104 103 RR 16 18 BP 149/79 149/79 O2 Sat % 100 98 Historian:: Patient Review:: Nurse's Note Reviewed ED Review of Systems - Review of Systems General/Constitutional: No fever, No chills, No weight loss, No weakness, No diaphoresis, No edema, No loss of appetite Skin: No skin lesions, No rash, No bruising Head: No headache, No light-headedness Eyes: No loss of vision, No pain, No diplopia ENT: No earache, No nasal drainage, No sore throat, No tinnitus Neck: No neck pain, No swelling, No thyromegaly, No stiffness, No mass noted Cardio Vascular: Chest pain, No palpitations, No PND, No orthopnea, No edema Pulmonary: No SOB, No cough, No sputum, No wheezing GI: Nausea, Vomiting, Diarrhea, Pain, No melena, No hematochezia, No constipation, No hematemesis G/U: No dysuria, No frequency, No hematuria, No nacturia Musculoskeletal: No bone or joint pain, No back pain, Muscle pain Endocrine: No polyuria, No polydipsia Psychiatric: No prior psych history, No depression, No anxiety, No suicidal ideation, No homicidal ideation, No auditory hallucination, No visual hallucination Hematopoietic: No bruising, No lymphadenopathy Allergic/Immuno: No urticaria, No angioedema Neurological: No syncope, No focal symptoms, No weakness, No paresthesia, No headache, No seizure, No dizziness, No confusion, No vertigo ED Past Medical History - Past Medical History Obtainable: Yes Past Medical History: HTN, Arthritis Family History: HTN Social History: Smoker, Alcohol, No Drug Use, Single, Homeless Surgical History: Appendectomy, Cholecystectomy Psychiatricy History: None Medication: Reviewed Family Medical History - Family Member Mother History Unknown: Yes Ethnicity: Living Status: Hx Family Cancer: No Hx Family Coronary Artery Disease: No Hx Family Congestive Heart Failure: No Hx Family Hypertension: No Hx Family Stroke: No Hx Family Diabetes: No Hx Family Seizures: No Hx Family Dementia: No Hx Family AIDS: No Hx Family HIV: No Hx Family COPD: No Hx Family Hepatitis: No Hx Family Psychiatric Problems: No Hx Family Tuberculosis: No Father History Unknown: Yes Ethnicity: Living Status: Hx Family Cancer: No Hx Family Coronary Artery Disease: No Hx Family Congestive Heart Failure: No Hx Family Hypertension: No Hx Family Stroke: No Hx Family Diabetes: No Hx Family Seizures: No Hx Family Dementia: No Hx Family AIDS: No Hx Family HIV: No Hx Family COPD: No Hx Family Hepatitis: No Hx Family Psychiatric Problems: No Hx Family Tuberculosis: No ED Physical Exam - Physical Examination General/Constitutional: Awake, Well-developed, well-nourished, Alert, No distress, GCS 15, Non-toxic appearing, Ambulatory Head: Atraumatic Eyes: Lids, conjuctiva normal, PERRL, EOMI Skin: Nl inspection, No rash, No skin lesions, No ecchymosis, Well hydrated, No lymphadenopathy ENMT: External ears, nose nl, TM canals nl, Nasal exam nl, Lips, teeth, gums nl , Oropharynx nl, Tonsils nl Neck: Nontender, Full ROM w/o pain, No JVD, No nuchal rigidity, No bruit, No mass, No stridor Other Neck comments:: supple; no meningeal signs; no cervical tenderness Respiratory: Nl effort/Exclusion, Clear to Auscultation, No Wheeze/Rhonchi/Rales Other Respiratory comments:: + Right Anterior Chest Wall tenderness which reproduces pt's subjective Chest Wall Pain Cardio Vascular: RRR, No murmur, gallop, rubs, NL S1 S2, Carotid/Femoral/Distal pulses equal bilaterally GI: No tenderness/rebounding/guarding, No organomegaly, No hernia, Normal BS's, Nondistended, No mass/bruits, No McBurney tenderness, Rectum exam nl Other GI comments:: no pulsatile masses : No CVA tenderness Extremities: No tenderness or effusion, Full ROM, normal strength in all extremities, No edema, Normal digits & nails Neuro/Psych: Alert/oriented, DTR's symmetric, Normal sensory exam, Normal motor strength, Judgement/insight normal, Mood normal, Normal gait, No focal deficits Misc: Normal back, No paraspinal tenderness ED Labs/Radiology/EKG Results - Lab Results Comments:: Pulse Ox: 98% on RA - Radiology Results Comments:: CVR: deferred by pt - EKG Interpretations EKG Time:: 08:59 Rate & Rhythm: 99; NSR Comments:: non-specific st-t changes; WNL ED Septic Shock - . Is Septic Shock (SBP<90, OR Lactate>4 mmol\L) present?: No - <6hrs of presentation: Vital Signs: Vital Signs - 8 hr 09/30/17 09/30/17 08:55 09:15 Temp 98.7 F HR 104 103 RR 16 18 BP 149/79 149/79 O2 Sat % 100 98 ED Reassessment (Disposition) - Reassessment Reassessment:: pt is asymptomatic upon discharge Reassessment Condition:: Improved - Diagnosis Diagnosis:: Chest Pain-resolved; Chest Wall Pain; Costochondritis - Aftercare/Follow up Instructions Aftercare/Follow-Up Instructions:: Counseled pt regarding lab results/diagnosis & need follow up, Refer to Discharge Instructions, Counseled pt & family regarding lab results/diagnosis & need follow up - Patient Disposition Discharge/Transfer:: Home Condition at Disposition:: Stable, Improved (RTER prn if existing s/s reoccur and/or get worse and/or any other new s/s occur; ACIs given for all above Dx; Refer to [employer]/Hook Up Driver/Summons Server JUAN; F/U with PMD in one day or prn; RTER prn if concerned) ED Discharge Plan - Patient Disposition Instructions: Costochondritis, [id number], Chest Wall Pain, [id number]
== END 2017-09-30 10:00 | disposition home or self-care (01) ==
LOC: ER 08:55
DX: M94.0 Chondrocostal junction syndrome [Tietze] (principal); I10 Essential (primary) hypertension; F17.200 Nicotine dependence, unspecified, uncomplicated; Z88.5 Allergy status to narcotic agent; Z88.8 Allergy status to other drugs, medicaments and biological substances; Z90.49 Acquired absence of other specified parts of digestive tract; Z59.0 Homelessness
CPT/HCPCS: 93005; Z7502

== ENCOUNTER 2017-09-30 14:53 | Emergency (ER) | payer MEDICAID ==
--- NOTE | 2017-09-30 15:53 | ED Physician Chart ---
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 Pain, A/N/V/D/C, bleeding, fever, chills, or urinary s/s; pt tried no pain medications Allergies:: Allergies Allergy/AdvReac Type Severity Reaction Status Date / Time acetaminophen [From [place]] Allergy Verified 09/30/17 15:00 aspirin Allergy Verified 09/30/17 15:00 carisoprodol [From [place]] Allergy Verified 09/30/17 15:00 gabapentin Allergy Verified 09/30/17 15:00 hydrocodone [From [place]] Allergy Verified 09/30/17 15:00 ibuprofen [From Motrin] Allergy Verified 09/30/17 15:00 ketorolac [From Toradol] Allergy Verified 09/30/17 15:00 meperidine [From Demerol] Allergy Verified 09/30/17 15:00 promethazine Allergy Verified 09/30/17 15:00 tramadol Allergy Verified 09/30/17 15:00 Vitals:: Vital Signs - 8 hr 09/30/17 09/30/17 14:55 15:39 Temp 98.0 F 98 F HR 99 70 RR 16 16 BP 101/60 101/60 O2 Sat % 98 98 Historian:: Patient, EMS Review:: Nurse's Note Reviewed, Old Chart Reviewed, EMS run form Reviewed ED Review of Systems - Review of Systems General/Constitutional: No fever, No chills, No weight loss, No weakness, No diaphoresis, No edema, No loss of appetite Skin: No skin lesions, No rash, No bruising Head: No headache, No light-headedness Eyes: No loss of vision, No pain, No diplopia ENT: No earache, No nasal drainage, No sore throat, No tinnitus Neck: No neck pain, No swelling, No thyromegaly, No stiffness, No mass noted Cardio Vascular: Chest pain, No palpitations, No PND, No orthopnea, No edema Pulmonary: No SOB, No cough, No sputum, No wheezing GI: Nausea, Vomiting, Diarrhea, Pain, No melena, No hematochezia, No constipation, No hematemesis G/U: No dysuria, No frequency, No hematuria, No nacturia Musculoskeletal: No bone or joint pain, No back pain, No muscle pain Endocrine: No polyuria, No polydipsia Psychiatric: No prior psych history, No depression, No anxiety, No suicidal ideation, No homicidal ideation, No auditory hallucination, No visual hallucination Hematopoietic: No bruising, No lymphadenopathy Allergic/Immuno: No urticaria, No angioedema Neurological: No syncope, No focal symptoms, No weakness, No paresthesia, No headache, No seizure, No dizziness, No confusion, No vertigo ED Past Medical History - Past Medical History Obtainable: Yes Past Medical History: HTN, PUD/GERD Family History: HTN Social History: Smoker, Alcohol, No Drug Use, Single, Homeless Surgical History: None Psychiatricy History: None Medication: Reviewed Family Medical History - Family Member Mother History Unknown: Yes Ethnicity: Living Status: Hx Family Cancer: No Hx Family Coronary Artery Disease: No Hx Family Congestive Heart Failure: No Hx Family Hypertension: No Hx Family Stroke: No Hx Family Diabetes: No Hx Family Seizures: No Hx Family Dementia: No Hx Family AIDS: No Hx Family HIV: No Hx Family COPD: No Hx Family Hepatitis: No Hx Family Psychiatric Problems: No Hx Family Tuberculosis: No Father History Unknown: Yes Ethnicity: Living Status: Hx Family Cancer: No Hx Family Coronary Artery Disease: No Hx Family Congestive Heart Failure: No Hx Family Hypertension: No Hx Family Stroke: No Hx Family Diabetes: No Hx Family Seizures: No Hx Family Dementia: No Hx Family AIDS: No Hx Family HIV: No Hx Family COPD: No Hx Family Hepatitis: No Hx Family Psychiatric Problems: No Hx Family Tuberculosis: No ED Physical Exam - Physical Examination General/Constitutional: Awake, Well-developed, well-nourished, Alert, No distress, GCS 15, Non-toxic appearing, Ambulatory Head: Atraumatic Eyes: Lids, conjuctiva normal, PERRL, EOMI Skin: Nl inspection, No rash, No skin lesions, No ecchymosis, Well hydrated, No lymphadenopathy ENMT: External ears, nose nl, TM canals nl, Nasal exam nl, Lips, teeth, gums nl , Oropharynx nl, Tonsils nl Neck: Nontender, Full ROM w/o pain, No JVD, No nuchal rigidity, No bruit, No mass, No stridor Other Neck comments:: supple; no meningeal signs; no cervical tenderness; no bruits Respiratory: Nl effort/Exclusion, Clear to Auscultation, No Wheeze/Rhonchi/Rales Cardio Vascular: RRR, No murmur, gallop, rubs, NL S1 S2 Other Cardio Vascular comments:: + Right Anterior Chest Wall tenderness which reproduces pt's subjective chest wall pain GI: No tenderness/rebounding/guarding, No organomegaly, No hernia, Normal BS's, Nondistended, No mass/bruits, No McBurney tenderness, Rectum exam nl Other GI comments:: no pulsatile masses : No CVA tenderness Extremities: No tenderness or effusion, Full ROM, normal strength in all extremities, No edema, Normal digits & nails Neuro/Psych: Alert/oriented, DTR's symmetric, Normal sensory exam, Normal motor strength, Judgement/insight normal, Mood normal, Normal gait, No focal deficits Misc: Normal back, No paraspinal tenderness ED Labs/Radiology/EKG Results - Lab Results Comments:: Pulse Ox: 99% on RA - EKG Interpretations EKG Time:: 15:06 Rate & Rhythm: 98; NSR Comments:: non-specific st-t changes; WNL ED Septic Shock - . Is Septic Shock (SBP<90, OR Lactate>4 mmol\L) present?: No - <6hrs of presentation: Vital Signs: Vital Signs - 8 hr 09/30/17 09/30/17 14:55 15:39 Temp 98.0 F 98 F HR 99 70 RR 16 16 BP 101/60 101/60 O2 Sat % 98 98 ED Reassessment (Disposition) - Reassessment Reassessment:: pt is asymptomatic upon discharge Reassessment Condition:: Improved - Diagnosis Diagnosis:: Chest Pain-Resolved; Chest Wall Pain; MS Chest Pain; Costochondritis - Aftercare/Follow up Instructions Aftercare/Follow-Up Instructions:: Counseled pt regarding lab results/diagnosis & need follow up, Refer to Discharge Instructions, Counseled pt & family regarding lab results/diagnosis & need follow up - Patient Disposition Discharge/Transfer:: Home Condition at Disposition:: Stable, Improved (RTER prn if existing s/s reoccur and/or get worse and/or any other new s/s occur; ACIs given for all above Dx; Refer to Maintenance Controller/Manager Bilingual/Subcontracts Manager JUAN; F/U with PMD in one day or prn; RTER prn if concerned) ED Discharge Plan - Patient Disposition Admit/Discharge/Transfer: PT DISCHARGED HOME Condition at Disposition: Stable Instructions: Chest Wall Pain, [id number]
== END 2017-09-30 16:00 | disposition home or self-care (01) ==
LOC: ER 14:53
DX: M94.0 Chondrocostal junction syndrome [Tietze] (principal); I10 Essential (primary) hypertension; K21.9 Gastro-esophageal reflux disease without esophagitis; K27.9 Peptic ulcer, site unspecified, unspecified as acute or chronic, without hemorrhage or perforation; F17.200 Nicotine dependence, unspecified, uncomplicated; Z88.5 Allergy status to narcotic agent; Z88.8 Allergy status to other drugs, medicaments and biological substances
CPT/HCPCS: 93005; Z7502

== ENCOUNTER 2017-11-12 13:59 | Emergency (ER) | payer MEDICAID ==
[2017-11-12] MEDS ORDERED: Sodium Chloride 0.9% 1,000 ML IV ONE (14:37)
--- NOTE | 2017-11-12 14:44 | ED Physician Chart ---
ED Chief Complaint/HPI - Patient Information Date Seen:: 11/12/17 Time Seen:: 14:30 Chief Complaint:: abdominal pain History of Present Illness:: Patient's had epigastric pain, vomiting, diarrhea and headache for the last 2 weeks. He's vomited about 3 or 4 times a day and had diarrhea about 2 times a day. Allergies:: Allergies Allergy/AdvReac Type Severity Reaction Status Date / Time acetaminophen [From [place]] Allergy Verified 10/16/17 21:42 aspirin Allergy Verified 10/16/17 21:42 carisoprodol [From [place]] Allergy Verified 10/16/17 21:42 gabapentin Allergy Verified 10/16/17 21:42 hydrocodone [From [place]] Allergy Verified 10/16/17 21:42 ibuprofen [From Motrin] Allergy Verified 10/16/17 21:42 ketorolac [From Toradol] Allergy Verified 10/16/17 21:42 meperidine [From Demerol] Allergy Verified 10/16/17 21:42 promethazine Allergy Verified 10/16/17 21:42 tramadol Allergy Verified 10/16/17 21:42 Vitals:: Vital Signs - 8 hr 11/12/17 14:23 Temp 97.9 F HR 89 RR 16 BP 139/70 O2 Sat % 98 Historian:: Patient Review:: Nurse's Note Reviewed ED Review of Systems - Review of Systems General/Constitutional: No fever, No chills Skin: No skin lesions Eyes: No loss of vision ENT: No earache Neck: No neck pain Cardio Vascular: No chest pain, No palpitations Pulmonary: No SOB, No cough GI: Vomiting, Diarrhea G/U: No dysuria Musculoskeletal: No bone or joint pain Endocrine: No polyuria, No polydipsia Psychiatric: No prior psych history Hematopoietic: No bruising Allergic/Immuno: No urticaria, No angioedema Neurological: No syncope, No focal symptoms ED Past Medical History - Past Medical History Past Medical History: HTN, Dyslipidemia, PUD/GERD, Other (hyperlipidemia) Family History: HTN, Other (hypercholesterolemia) Surgical History: Appendectomy, Cholecystectomy Psychiatricy History: Depression, Other (anxiety) Medication: Reviewed Family Medical History - Family Member Mother History Unknown: Yes Ethnicity: Living Status: Hx Family Cancer: No Hx Family Coronary Artery Disease: Yes Hx Family Congestive Heart Failure: No Hx Family Hypertension: Yes Hx Family Stroke: No Hx Family Diabetes: Yes Hx Family Seizures: No Hx Family Dementia: No Hx Family AIDS: No Hx Family HIV: No Hx Family COPD: No Hx Family Hepatitis: No Hx Family Psychiatric Problems: No Hx Family Tuberculosis: No Father History Unknown: Yes Ethnicity: Living Status: Hx Family Cancer: No Hx Family Coronary Artery Disease: No Hx Family Congestive Heart Failure: No Hx Family Hypertension: No Hx Family Stroke: No Hx Family Diabetes: No Hx Family Seizures: No Hx Family Dementia: No Hx Family AIDS: No Hx Family HIV: No Hx Family COPD: No Hx Family Hepatitis: No Hx Family Psychiatric Problems: No Hx Family Tuberculosis: No ED Physical Exam - Physical Examination General/Constitutional: Awake, Well-developed, well-nourished, Alert, No distress, GCS 15, Non-toxic appearing, Ambulatory Head: Atraumatic Eyes: Lids, conjuctiva normal, PERRL, EOMI Skin: Nl inspection, No rash, No skin lesions, No ecchymosis, Well hydrated, No lymphadenopathy ENMT: External ears, nose nl, Nasal exam nl Other ENMT comments:: Several teeth carious to the gumline Neck: Nontender, Full ROM w/o pain, No JVD, No nuchal rigidity, No bruit, No mass, No stridor Respiratory: Nl effort/Exclusion, Clear to Auscultation, No Wheeze/Rhonchi/Rales Cardio Vascular: RRR, No murmur, gallop, rubs, NL S1 S2 GI: No organomegaly, No hernia, Normal BS's, Nondistended, No mass/bruits, No McBurney tenderness Other GI comments:: Epigastric tenderness : No CVA tenderness Extremities: No tenderness or effusion, Full ROM, normal strength in all extremities, No edema, Normal digits & nails Neuro/Psych: Alert/oriented, DTR's symmetric, Normal sensory exam, Normal motor strength, Judgement/insight normal, Mood normal, Normal gait, No focal deficits Misc: Normal back, No paraspinal tenderness ED Labs/Radiology/EKG Results - Lab Results Results: Abnormal Lab Results 11/12/17 11/12/17 14:41 14:41 WBC 6.5 RBC 4.28 L Hgb 11.6 L Hct 34.5 L MCV 80.7 MCH 27.1 MCHC Differential 33.5 RDW 17.2 Plt Count 182 MPV 8.9 Neutrophils % 63.9 Lymphocytes % 25.8 Monocytes % 7.0 Eosinophils % 2.1 Basophils % 1.2 Sodium 137 Potassium 3.7 Chloride 108 H Carbon Dioxide 25.5 Anion Gap 7.2 BUN 14 Creatinine 1.1 Est GFR ( Amer) > 60.0 Est GFR (Non-Af Amer) > 60.0 BUN/Creatinine Ratio 12.7 Glucose 135 H Calcium 8.5 L Lipase 60 ED Assessment - Assessment General Assessment: At 1557 patient stated he felt better. He states he feels hungry but otherwise is all right. ED Septic Shock - . Is Septic Shock (SBP<90, OR Lactate>4 mmol\L) present?: No - <6hrs of presentation: Vital Signs: Vital Signs - 8 hr // 14:23 Temp 97.9 F HR 89 RR 16 BP 139/70 O2 Sat % 98 ED Reassessment (Disposition) - Reassessment Reassessment:: Patient encouraged to drink lots a half Gatorade half water, eat bananas and drink orange juice. - Diagnosis Diagnosis:: Gastroenteritis - Aftercare/Follow up Instructions Aftercare/Follow-Up Instructions:: Refer to Discharge Instructions - Patient Disposition Discharge/Transfer:: Home Condition at Disposition:: Stable, Improved
[2017-11-12 15:01] LABS: % BASOPHILS 1.2 % (0.0-2.0); % EOSINOPHILS 2.1 % (0.0-5.0); % LYMPHOCYTES 25.8 % (20.0-50.0); % NEUTROPHILS 63.9 % (40.0-80.0); BASOPHILE ABSOLUTE 0.1 Th/cumm (0-0.2); EOSINOPHILE ABSOLUTE 0.1 Th/cmm (0.1-0.4); HEMATOCRIT 34.5 % (41.0-60); HEMOGLOBIN 11.6 gm/dL (12-16); LYMPHOCYTE ABSOLUTE 1.7 Th/cmm (1.5-3.0); MEAN CELL VOLUME 80.7 fl (80-99); MEAN CORPUSCULAR HEMOGLOBIN 27.1 pg (26.0-30.0); MEAN CORPUSCULAR HGB CONC 33.5 pg (28.0-36.0); MEAN PLATELET VOLUME 8.9 fl; MONOCYTE ABSOLUTE 0.5 Th/cmm (0.3-1.0); NEUTROPHILE ABSOLUTE 4.1 Th/cmm (1.8-8.0); PLATELET COUNT 182 Th/cmm (150-400); RED BLOOD COUNT 4.28 Mil/cmm (4.30-5.70); RED CELL DISTRIBUTION WIDTH 17.2 % (11.5-20.0); WHITE BLOOD COUNT 6.5 Th/cmm (4.8-10.8)
[2017-11-12 15:15] LABS: ANION GAP 7.2 (7.0-16.0); BUN - UREA NITROGEN 14 mg/dL (7-25); CALCIUM SERUM 8.5 mg/dL (8.6-10.3); CARBON DIOXIDE 25.5 mEq/L (21.0-31.0); CHLORIDE 108 mEq/L (98-107); CREATININE - SERUM 1.1 mg/dL (0.7-1.3); GFR AFRICAN-AMERICAN > 60.0 ml/min (>90); GFR NON AFRICAN-AMERICAN > 60.0 ml/min; GLUCOSE 135 mg/dL (70-105); LIPASE 60 U/L (11-82); POTASSIUM SERUM 3.7 mEq/L (3.5-5.1); SODIUM SERUM 137 mEq/L (136-145)
== END 2017-11-12 16:11 | disposition home or self-care (01) ==
LOC: ER 13:59
DX: K52.9 Noninfective gastroenteritis and colitis, unspecified (principal); I10 Essential (primary) hypertension; E78.5 Hyperlipidemia, unspecified; K21.9 Gastro-esophageal reflux disease without esophagitis; Z90.49 Acquired absence of other specified parts of digestive tract; Z88.8 Allergy status to other drugs, medicaments and biological substances; Z88.5 Allergy status to narcotic agent
CPT/HCPCS: 36415-UA; 80048-TC; 83690-TC; 85025-TC; Z7502

== ENCOUNTER 2017-11-13 17:56 | Emergency (ER) | payer MEDICAID ==
--- NOTE | 2017-11-13 18:05 | ED Physician Chart ---
ED Chief Complaint/HPI - Patient Information Date Seen:: 11/13/17 Time Seen:: 17:59 Chief Complaint:: Chest pain History of Present Illness:: 57 yo male who had frequent visits to [facility] ER with a variety of complaints and mostly unremarkable work ups, walked in to ER with complaint of chest pain for 2 days. Allergies:: Allergies Allergy/AdvReac Type Severity Reaction Status Date / Time acetaminophen [From [place]] Allergy Verified 10/16/17 21:42 aspirin Allergy Verified 10/16/17 21:42 carisoprodol [From [place]] Allergy Verified 10/16/17 21:42 gabapentin Allergy Verified 10/16/17 21:42 hydrocodone [From [place]] Allergy Verified 10/16/17 21:42 ibuprofen [From Motrin] Allergy Verified 10/16/17 21:42 ketorolac [From Toradol] Allergy Verified 10/16/17 21:42 meperidine [From Demerol] Allergy Verified 10/16/17 21:42 promethazine Allergy Verified 10/16/17 21:42 tramadol Allergy Verified 10/16/17 21:42 ED Review of Systems - Review of Systems General/Constitutional: No fever Skin: No bruising Head: Headache ENT: No nasal drainage Neck: No neck pain Cardio Vascular: Chest pain Pulmonary: No SOB GI: No nausea, No vomiting Musculoskeletal: Bone or joint pain Neurological: No focal symptoms ED Past Medical History - Past Medical History Past Medical History: HTN, DM, Dyslipidemia, PUD/GERD, Other (Vertigo) Social History: Smoker, No Alcohol, No Drug Use Surgical History: Appendectomy, Cholecystectomy Family Medical History - Family Member Mother History Unknown: Yes Ethnicity: Living Status: Hx Family Cancer: No Hx Family Coronary Artery Disease: Yes Hx Family Congestive Heart Failure: No Hx Family Hypertension: Yes Hx Family Stroke: No Hx Family Diabetes: Yes Hx Family Seizures: No Hx Family Dementia: No Hx Family AIDS: No Hx Family HIV: No Hx Family COPD: No Hx Family Hepatitis: No Hx Family Psychiatric Problems: No Hx Family Tuberculosis: No Father History Unknown: Yes Ethnicity: Living Status: Hx Family Cancer: No Hx Family Coronary Artery Disease: No Hx Family Congestive Heart Failure: No Hx Family Hypertension: No Hx Family Stroke: No Hx Family Diabetes: No Hx Family Seizures: No Hx Family Dementia: No Hx Family AIDS: No Hx Family HIV: No Hx Family COPD: No Hx Family Hepatitis: No Hx Family Psychiatric Problems: No Hx Family Tuberculosis: No ED Physical Exam - Physical Examination General/Constitutional: Awake Head: Atraumatic Eyes: PERRL Skin: No ecchymosis ENMT: Nasal exam nl Neck: No nuchal rigidity Respiratory: No Wheeze/Rhonchi/Rales Cardio Vascular: RRR, No murmur, gallop, rubs, NL S1 S2 GI: No tenderness/rebounding/guarding Extremities: normal strength in all extremities Neuro/Psych: No focal deficits ED Labs/Radiology/EKG Results - Lab Results Results: Laboratory Last Values WBC 8.6 Th/cmm (4.8-10.8) 11/13/17 18:30 RBC 3.97 Mil/cmm (4.30-5.70) L 11/13/17 18:30 Hgb 10.6 gm/dL (12-16) L 11/13/17 18:30 Hct 32.0 % (41.0-60) L 11/13/17 18:30 MCV 80.8 fl (80-99) 11/13/17 18:30 MCH 26.7 pg (26.0-30.0) 11/13/17 18:30 MCHC Differential 33.1 pg (28.0-36.0) 11/13/17 18:30 RDW 17.0 % (11.5-20.0) 11/13/17 18:30 Plt Count 186 Th/cmm (150-400) 11/13/17 18:30 MPV 8.9 fl 11/13/17 18:30 Neutrophils % 72.2 % (40.0-80.0) 11/13/17 18:30 Lymphocytes % 20.4 % (20.0-50.0) 11/13/17 18:30 Monocytes % 5.0 % (2.0-10.0) 11/13/17 18:30 Eosinophils % 1.9 % (0.0-5.0) 11/13/17 18:30 Basophils % 0.5 % (0.0-2.0) 11/13/17 18:30 Sodium 136 mEq/L (136-145) 11/13/17 18:30 Potassium 3.3 mEq/L (3.5-5.1) L 11/13/17 18:30 Chloride 106 mEq/L (98-107) 11/13/17 18:30 Carbon Dioxide 24.0 mEq/L (21.0-31.0) 11/13/17 18:30 Anion Gap 9.3 (7.0-16.0) 11/13/17 18:30 BUN 15 mg/dL (7-25) 11/13/17 18:30 Creatinine 1.1 mg/dL (0.7-1.3) 11/13/17 18:30 Est GFR ( Amer) > 60.0 ml/min (>90) 11/13/17 18:30 Est GFR (Non-Af Amer) > 60.0 ml/min 11/13/17 18:30 BUN/Creatinine Ratio 13.6 11/13/17 18:30 Glucose 111 mg/dL (70-105) H 11/13/17 18:30 Calcium 8.5 mg/dL (8.6-10.3) L 11/13/17 18:30 Total Bilirubin 0.2 mg/dL (0.3-1.0) L 11/13/17 18:30 AST 13 U/L (13-39) 11/13/17 18:30 ALT 13 U/L (7-52) 11/13/17 18:30 Alkaline Phosphatase 69 U/L (34-104) 11/13/17 18:30 Troponin I < 0.01 ng/mL (0.01-0.05) L 11/13/17 18:30 B-Natriuretic Peptide 42.2 pg/mL (5.0-100.0) 11/13/17 18:30 Total Protein 5.9 gm/dL (6.0-8.3) L 11/13/17 18:30 Albumin 3.5 gm/dL (4.2-5.5) L 11/13/17 18:30 Globulin 2.4 gm/dL 11/13/17 18:30 Albumin/Globulin Ratio 1.5 (1.0-1.8) 11/13/17 18:30 Urine Source RANDOM 11/13/17 18:50 Urine Color YELLOW 11/13/17 18:50 Urine Clarity CLEAR (CLEAR) 11/13/17 18:50 Urine pH 6.0 (4.6 - 8.0) 11/13/17 18:50 Ur Specific [place] >= 1.030 (1.005-1.030) 11/13/17 18:50 Urine Protein NEGATIVE mg/dL (NEGATIVE) 11/13/17 18:50 Urine Glucose (UA) NEGATIVE mg/dL (NEGATIVE) 11/13/17 18:50 Urine Ketones NEGATIVE mg/dL (NEGATIVE) 11/13/17 18:50 Urine Blood NEGATIVE (NEGATIVE) 11/13/17 18:50 Urine Nitrate NEGATIVE (NEGATIVE) 11/13/17 18:50 Urine Bilirubin NEGATIVE (NEGATIVE) 11/13/17 18:50 Urine Urobilinogen 0.2 E.U./dL (0.2 - 1.0) 11/13/17 18:50 Ur Leukocyte Esterase NEGATIVE (NEGATIVE) 11/13/17 18:50 Urine Opiates Screen NEGATIVE (NEGATIVE) 11/13/17 18:50 Urine Methadone Screen NEGATIVE (NEGATIVE) 11/13/17 18:50 Ur Barbiturates Screen POSITIVE (NEGATIVE) H 11/13/17 18:50 Ur Tricyclics Screen NEGATIVE (NEGATIVE) 11/13/17 18:50 Ur Phencyclidine Scrn NEGATIVE (NEGATIVE) 11/13/17 18:50 Amphetamines Screen NEGATIVE (NEGATIVE) 11/13/17 18:50 U Methamphetamines Scrn NEGATIVE (NEGATIVE) 11/13/17 18:50 U Benzodiazepines Scrn NEGATIVE (NEGATIVE) 11/13/17 18:50 U Cocaine Metab Screen NEGATIVE (NEGATIVE) 11/13/17 18:50 U Cannabinoids Screen NEGATIVE (NEGATIVE) 11/13/17 18:50 - Radiology Results Results: CXR: no acute disease - EKG Interpretations EKG Time:: 17:59 Rate & Rhythm: 84 bpm, sinus rhythm [place]: left atrial enlargement Intervals: TN 119, QRSD 87, QT 343 Comments:: Non-specific ST changes ED Assessment - Assessment General Assessment: Chest pain with negative Trop I and normal BNP Hypokalemia Normocytic anemia Assessment/Comments:: CBC, CMP, Trop, BNP, UA, urine drug screen CXR, EKG KCl 40 mEq PO D/c home F/u PCP or return to ER if symptoms worsen ED Septic Shock - . Is Septic Shock (SBP<90, OR Lactate>4 mmol\L) present?: No ED Reassessment (Disposition) - Reassessment Reassessment Condition:: Improved - Patient Disposition Discharge/Transfer:: Home ED Discharge Plan - Patient Disposition Admit/Discharge/Transfer: PT DISCHARGED HOME Instructions: Angina Pectoris
[2017-11-13 18:38] LABS: % BASOPHILS 0.5 % (0.0-2.0); % EOSINOPHILS 1.9 % (0.0-5.0); % LYMPHOCYTES 20.4 % (20.0-50.0); % NEUTROPHILS 72.2 % (40.0-80.0); EOSINOPHILE ABSOLUTE 0.2 Th/cmm (0.1-0.4); HEMOGLOBIN 10.6 gm/dL (12-16); LYMPHOCYTE ABSOLUTE 1.8 Th/cmm (1.5-3.0); MEAN CELL VOLUME 80.8 fl (80-99); MEAN CORPUSCULAR HEMOGLOBIN 26.7 pg (26.0-30.0); MEAN CORPUSCULAR HGB CONC 33.1 pg (28.0-36.0); MEAN PLATELET VOLUME 8.9 fl; MONOCYTE ABSOLUTE 0.4 Th/cmm (0.3-1.0); NEUTROPHILE ABSOLUTE 6.2 Th/cmm (1.8-8.0); PLATELET COUNT 186 Th/cmm (150-400); RED BLOOD COUNT 3.97 Mil/cmm (4.30-5.70); WHITE BLOOD COUNT 8.6 Th/cmm (4.8-10.8)
[2017-11-13 18:57] LABS: ALB/GLOB RATIO 1.5 (1.0-1.8); ALBUMIN 3.5 gm/dL (4.2-5.5); ALKALINE PHOSPHATASE 69 U/L (34-104); ANION GAP 9.3 (7.0-16.0); BILIRUBIN,TOTAL 0.2 mg/dL (0.3-1.0); BUN - UREA NITROGEN 15 mg/dL (7-25); CALCIUM SERUM 8.5 mg/dL (8.6-10.3); CHLORIDE 106 mEq/L (98-107); CREATININE - SERUM 1.1 mg/dL (0.7-1.3); GFR AFRICAN-AMERICAN > 60.0 ml/min (>90); GFR NON AFRICAN-AMERICAN > 60.0 ml/min; GLUCOSE 111 mg/dL (70-105); POTASSIUM SERUM 3.3 mEq/L (3.5-5.1); SGOT 13 U/L (13-39); SGPT/ALT 13 U/L (7-52); SODIUM SERUM 136 mEq/L (136-145); TOTAL PROTEIN,SERUM 5.9 gm/dL (6.0-8.3)
[2017-11-13] MEDS ORDERED: Potassium Chloride 20 mEq ER Tab PO ONE ×2 (19:12→19:16)
[2017-11-13 19:50] LABS: URINE BILIRUBIN NEGATIVE (NEGATIVE); URINE BLOOD NEGATIVE (NEGATIVE); URINE GLUCOSE (UA) NEGATIVE (NEGATIVE); URINE KETONE NEGATIVE (NEGATIVE); URINE LEUKOCYTE ESTERASE NEGATIVE (NEGATIVE); URINE NITRATE NEGATIVE (NEGATIVE); URINE PROTEIN NEGATIVE (NEGATIVE); URINE SOURCE RANDOM; URINE UROBILINOGEN 0.2 E.U./dL (0.2 - 1.0)
[2017-11-13 19:54] LABS: URINE CLARITY CLEAR (CLEAR); URINE COLOR YELLOW; URINE MICROSCOPIC INDICATED? NO
[2017-11-13 20:01] LABS: AMPHETAMINE URINE NEGATIVE (NEGATIVE); BARBITURATES URINE POSITIVE (NEGATIVE); BENZODIAZEPINES QUAL URINE NEGATIVE (NEGATIVE); CANNABINOID THC NEGATIVE (NEGATIVE); COCAINE METABOLITE QUAL URINE NEGATIVE (NEGATIVE); METHADONE URINE NEGATIVE (NEGATIVE); METHAMPHETAMINES QUAL URINE NEGATIVE (NEGATIVE); OPIATES (MORPHINE) QUAL. URINE NEGATIVE (NEGATIVE); PHENCYCLIDINE (PCP) URINE NEGATIVE (NEGATIVE); TRICYCLICS (TCA) QUAL. URINE NEGATIVE (NEGATIVE)
--- NOTE | 2017-11-14 09:31 | Diagnostic Imaging Report ---
CHEST X-RAY: AP view INDICATION: pain COMPARISON: 11/01/2017 FINDINGS: There is no focal consolidation or pleural effusions The heart is normal in size. The osseous structures demonstrate no acute abnormalities. IMPRESSION: No acute cardiopulmonary disease.
== END 2017-11-13 20:25 | disposition home or self-care (01) ==
LOC: ER 17:56
DX: E87.6 Hypokalemia (principal); D64.9 Anemia, unspecified; R07.9 Chest pain, unspecified; I10 Essential (primary) hypertension; E11.9 Type 2 diabetes mellitus without complications; K21.9 Gastro-esophageal reflux disease without esophagitis; E78.5 Hyperlipidemia, unspecified; F17.200 Nicotine dependence, unspecified, uncomplicated; Z88.5 Allergy status to narcotic agent; Z88.8 Allergy status to other drugs, medicaments and biological substances; Z90.49 Acquired absence of other specified parts of digestive tract
CPT/HCPCS: 36415-UA; 71045-TC; 80053-TC; 80307; 81003-TC; 83880-TC; 84484-TC; 85025-TC; 93005

== ENCOUNTER 2017-11-19 19:39 | Emergency (ER) | payer MEDICAID ==
--- NOTE | 2017-11-19 20:35 | ED Physician Chart ---
ED Chief Complaint/HPI - Patient Information Date Seen:: 11/19/17 Time Seen:: 20:20 Chief Complaint:: palpitations History of Present Illness:: About 2 hours ago patient developed palpitations, diaphoresis and tingling sensation of extremities. He describes the palpitations as a rapid heartbeat. Symptoms are now improved. Allergies:: Allergies Allergy/AdvReac Type Severity Reaction Status Date / Time acetaminophen [From [place]] Allergy Verified 10/16/17 21:42 aspirin Allergy Verified 10/16/17 21:42 carisoprodol [From [place]] Allergy Verified 10/16/17 21:42 gabapentin Allergy Verified 10/16/17 21:42 hydrocodone [From [place]] Allergy Verified 10/16/17 21:42 ibuprofen [From Motrin] Allergy Verified 10/16/17 21:42 ketorolac [From Toradol] Allergy Verified 10/16/17 21:42 meperidine [From Demerol] Allergy Verified 10/16/17 21:42 promethazine Allergy Verified 10/16/17 21:42 tramadol Allergy Verified 10/16/17 21:42 Vitals:: Vital Signs - 8 hr 11/19/17 19:52 Temp 98.2 F HR 84 RR 18 BP 103/72 O2 Sat % 97 Historian:: Patient Review:: Nurse's Note Reviewed ED Review of Systems - Review of Systems General/Constitutional: No fever, No chills, No weight loss, No weakness, No diaphoresis, No edema, No loss of appetite, Other (diaphoresis and tingling) Skin: No skin lesions, No rash, No bruising Head: No headache, No light-headedness Eyes: No loss of vision, No pain, No diplopia ENT: No earache, No nasal drainage, No sore throat, No tinnitus Neck: No neck pain, No swelling, No thyromegaly, No stiffness, No mass noted Cardio Vascular: No chest pain, Palpitations, No PND, No orthopnea, No edema Pulmonary: No SOB, No cough, No sputum, No wheezing GI: No nausea, No vomiting, No diarrhea, No pain, No melena, No hematochezia, No constipation, No hematemesis G/U: No dysuria, No frequency, No hematuria Musculoskeletal: No bone or joint pain, No back pain, No muscle pain Endocrine: No polyuria, No polydipsia Psychiatric: No prior psych history, No depression, No anxiety, No suicidal ideation Hematopoietic: No bruising, No lymphadenopathy Allergic/Immuno: No urticaria, No angioedema Neurological: No syncope, No focal symptoms, No weakness, No paresthesia, No headache, No seizure, No dizziness, No confusion, No vertigo ED Past Medical History - Past Medical History Past Medical History: HTN, Dyslipidemia, Other (lipidemia) Family History: None Social History: Smoker, Alcohol (occasional alcohol; last one half pack of cigarettes a day) Surgical History: Appendectomy, Cholecystectomy Psychiatricy History: None Medication: Reviewed Family Medical History - Family Member Mother History Unknown: Yes Ethnicity: Living Status: Hx Family Cancer: No Hx Family Coronary Artery Disease: Yes Hx Family Congestive Heart Failure: No Hx Family Hypertension: Yes Hx Family Stroke: No Hx Family Diabetes: Yes Hx Family Seizures: No Hx Family Dementia: No Hx Family AIDS: No Hx Family HIV: No Hx Family COPD: No Hx Family Hepatitis: No Hx Family Psychiatric Problems: No Hx Family Tuberculosis: No Father History Unknown: Yes Ethnicity: Living Status: Hx Family Cancer: No Hx Family Coronary Artery Disease: No Hx Family Congestive Heart Failure: No Hx Family Hypertension: No Hx Family Stroke: No Hx Family Diabetes: No Hx Family Seizures: No Hx Family Dementia: No Hx Family AIDS: No Hx Family HIV: No Hx Family COPD: No Hx Family Hepatitis: No Hx Family Psychiatric Problems: No Hx Family Tuberculosis: No ED Physical Exam - Physical Examination General/Constitutional: Awake Head: Atraumatic Eyes: Lids, conjuctiva normal, PERRL, EOMI Skin: Nl inspection, No rash, No skin lesions, No ecchymosis, Well hydrated, No lymphadenopathy ENMT: External ears, nose nl, Nasal exam nl Other ENMT comments:: 4 out of 4 poor dental hygiene Neck: Nontender, Full ROM w/o pain, No JVD, No nuchal rigidity, No bruit, No mass, No stridor Respiratory: Nl effort/Exclusion Other Respiratory comments:: 1/4 inspiratory/expiratory wheezing Cardio Vascular: RRR, No murmur, gallop, rubs, NL S1 S2 GI: No tenderness/rebounding/guarding, No organomegaly, No hernia, Normal BS's, Nondistended, No mass/bruits, No McBurney tenderness : No CVA tenderness Extremities: No tenderness or effusion, Full ROM, normal strength in all extremities, No edema, Normal digits & nails Neuro/Psych: Alert/oriented, DTR's symmetric, Normal sensory exam, Normal motor strength, Judgement/insight normal, Mood normal, Normal gait, No focal deficits Misc: Normal back, No paraspinal tenderness ED Septic Shock - . Is Septic Shock (SBP<90, OR Lactate>4 mmol\L) present?: No - <6hrs of presentation: Vital Signs: Vital Signs - 8 hr 11/19/17 19:52 Temp 98.2 F HR 84 RR 18 BP 103/72 O2 Sat % 97 ED Reassessment (Disposition) - Reassessment Reassessment Condition:: Improved - Diagnosis Diagnosis:: Panic attack, subsided - Aftercare/Follow up Instructions Aftercare/Follow-Up Instructions:: Refer to Discharge Instructions - Patient Disposition Discharge/Transfer:: Home Condition at Disposition:: Stable, Improved
== END 2017-11-19 20:40 | disposition home or self-care (01) ==
LOC: ER 19:39
DX: F41.0 Panic disorder [episodic paroxysmal anxiety] (principal); R00.2 Palpitations; R20.2 Paresthesia of skin; I10 Essential (primary) hypertension; E78.5 Hyperlipidemia, unspecified; F17.210 Nicotine dependence, cigarettes, uncomplicated; Z90.49 Acquired absence of other specified parts of digestive tract; Z88.6 Allergy status to analgesic agent; Z88.5 Allergy status to narcotic agent; Z88.8 Allergy status to other drugs, medicaments and biological substances
CPT/HCPCS: Z7502

== ENCOUNTER 2017-12-12 18:09 | Emergency (ER) | payer MEDICAID ==
--- NOTE | 2017-12-12 18:31 | ED Physician Chart ---
ED Chief Complaint/HPI - Patient Information Date Seen:: 12/12/17 Time Seen:: 18:16 Chief Complaint:: CHEST PAIN History of Present Illness:: THIS IS A 57 YO MALE WHO HAS BEEN HERE ABOUT 89 TIMES WITH THE SAME SYMPTOMS AND SMELLING OF ALCOHOL. HE ADMITS TO DRINKING ALCOHOL TODAY. HE DENIES SOB, FEVER AND CHEST CONGESTION. Allergies:: Allergies Allergy/AdvReac Type Severity Reaction Status Date / Time acetaminophen [From [place]] Allergy Verified 10/16/17 21:42 aspirin Allergy Verified 10/16/17 21:42 carisoprodol [From [place]] Allergy Verified 10/16/17 21:42 gabapentin Allergy Verified 10/16/17 21:42 hydrocodone [From [place]] Allergy Verified 10/16/17 21:42 ibuprofen [From Motrin] Allergy Verified 10/16/17 21:42 ketorolac [From Toradol] Allergy Verified 10/16/17 21:42 meperidine [From [place]erol] Allergy Verified 10/16/17 21:42 promethazine Allergy Verified 10/16/17 21:42 tramadol Allergy Verified 10/16/17 21:42 Vitals:: Vital Signs - 8 hr 12/12/17 18:12 Temp 98.7 F HR 107 RR 20 BP 99/69 O2 Sat % 99 Historian:: Patient, EMS Review:: Nurse's Note Reviewed, Old Chart Reviewed, EMS run form Reviewed ED Review of Systems - Review of Systems General/Constitutional: No fever, No chills, No weight loss, No weakness, No diaphoresis, No edema, No loss of appetite Skin: No skin lesions, No rash, No bruising Head: No headache, No light-headedness Eyes: No loss of vision, No pain, No diplopia ENT: No earache, No nasal drainage, No sore throat, No tinnitus Neck: No neck pain, No swelling, No thyromegaly, No stiffness, No mass noted Cardio Vascular: Chest pain, Palpitations, No palpitations, No PND, No orthopnea , No edema Pulmonary: No SOB, No cough, No sputum, No wheezing GI: No nausea, No vomiting, No diarrhea, No pain, No melena, No hematochezia, No constipation, No hematemesis G/U: No dysuria, No frequency, No hematuria Musculoskeletal: No bone or joint pain, No back pain, No muscle pain Endocrine: No polyuria, No polydipsia Psychiatric: No prior psych history, No depression, No anxiety, No suicidal ideation Hematopoietic: No bruising, No lymphadenopathy Allergic/Immuno: No urticaria, No angioedema Neurological: No syncope, No focal symptoms, No weakness, No paresthesia, No headache, No seizure, No dizziness, No confusion, No vertigo ED Past Medical History - Past Medical History Obtainable: Yes Past Medical History: HTN, CAD, Other (ALCOHOL ABUSE) Family History: None Social History: Non Smoker, Alcohol, No Drug Use, Surgical History: None Psychiatricy History: Depression Medication: Reviewed Family Medical History - Family Member Mother History Unknown: Yes Ethnicity: Living Status: Hx Family Cancer: No Hx Family Coronary Artery Disease: Yes Hx Family Congestive Heart Failure: No Hx Family Hypertension: Yes Hx Family Stroke: No Hx Family Diabetes: Yes Hx Family Seizures: No Hx Family Dementia: No Hx Family AIDS: No Hx Family HIV: No Hx Family COPD: No Hx Family Hepatitis: No Hx Family Psychiatric Problems: No Hx Family Tuberculosis: No Father History Unknown: Yes Ethnicity: Living Status: Hx Family Cancer: No Hx Family Coronary Artery Disease: No Hx Family Congestive Heart Failure: No Hx Family Hypertension: No Hx Family Stroke: No Hx Family Diabetes: No Hx Family Seizures: No Hx Family Dementia: No Hx Family AIDS: No Hx Family HIV: No Hx Family COPD: No Hx Family Hepatitis: No Hx Family Psychiatric Problems: No Hx Family Tuberculosis: No ED Physical Exam - Physical Examination General/Constitutional: Awake, Well-developed, well-nourished, Alert, No distress, GCS 15, Non-toxic appearing, Ambulatory Other Gen/Cons comments:: SMELLS LIKE ALCOHOL Head: Atraumatic Eyes: Lids, conjuctiva normal, PERRL, EOMI Skin: Nl inspection, No rash, No skin lesions, No ecchymosis, Well hydrated, No lymphadenopathy ENMT: External ears, nose nl, Nasal exam nl, Lips, teeth, gums nl Neck: Nontender, Full ROM w/o pain, No JVD, No nuchal rigidity, No bruit, No mass, No stridor Respiratory: Nl effort/Exclusion, Clear to Auscultation, No Wheeze/Rhonchi/Rales Cardio Vascular: RRR, No murmur, gallop, rubs, NL S1 S2 GI: No tenderness/rebounding/guarding, No organomegaly, No hernia, Normal BS's, Nondistended (ABDOMEN IS DISTENDED BUT SOFT), No mass/bruits, No McBurney tenderness : No CVA tenderness Extremities: No tenderness or effusion, Full ROM, normal strength in all extremities, No edema, Normal digits & nails Neuro/Psych: Alert/oriented, DTR's symmetric, Normal sensory exam, Normal motor strength, Judgement/insight normal, Mood normal (DEPRESSED), Normal gait, No focal deficits Misc: Normal back, No paraspinal tenderness ED Labs/Radiology/EKG Results - Radiology Results Results: CHEST X-RAY = NAD - EKG Interpretations EKG Time:: 18:18 Rate & Rhythm: RATE 103, SINUS [place]: RIGHT AXIS Intervals: NO ECTOPY ED Assessment - Assessment General Assessment: ATYPICAL CHEST PAIN ALCOHOL ABUSE ED Septic Shock - . Is Septic Shock (SBP<90, OR Lactate>4 mmol\L) present?: No - <6hrs of presentation: Vital Signs: Vital Signs - 8 hr 12/12/17 18:12 Temp 98.7 F HR 107 RR 20 BP 99/69 O2 Sat % 99 ED Reassessment (Disposition) - Reassessment Reassessment Condition:: Improved
[2017-12-12 18:53] LABS: % BASOPHILS 0.9 % (0.0-2.0); % EOSINOPHILS 3.2 % (0.0-5.0); % LYMPHOCYTES 22.1 % (20.0-50.0); % MONOCYTES 7.3 % (2.0-10.0); % NEUTROPHILS 66.5 % (40.0-80.0); BASOPHILE ABSOLUTE 0.1 Th/cumm (0-0.2); EOSINOPHILE ABSOLUTE 0.2 Th/cmm (0.1-0.4); HEMATOCRIT 34.6 % (41.0-60); HEMOGLOBIN 11.3 gm/dL (12-16); LYMPHOCYTE ABSOLUTE 1.7 Th/cmm (1.5-3.0); MEAN CELL VOLUME 78.9 fl (80-99); MEAN CORPUSCULAR HEMOGLOBIN 25.6 pg (26.0-30.0); MEAN CORPUSCULAR HGB CONC 32.5 pg (28.0-36.0); MEAN PLATELET VOLUME 9.1 fl; MONOCYTE ABSOLUTE 0.6 Th/cmm (0.3-1.0); NEUTROPHILE ABSOLUTE 5.1 Th/cmm (1.8-8.0); PLATELET COUNT 224 Th/cmm (150-400); RED BLOOD COUNT 4.39 Mil/cmm (4.30-5.70); RED CELL DISTRIBUTION WIDTH 17.3 % (11.5-20.0); WHITE BLOOD COUNT 7.7 Th/cmm (4.8-10.8)
[2017-12-12 19:08] LABS: ALB/GLOB RATIO 1.5 (1.0-1.8); ALBUMIN 4.1 gm/dL (4.2-5.5); ALKALINE PHOSPHATASE 90 U/L (34-104); ANION GAP 11.2 (7.0-16.0); BILIRUBIN,TOTAL 0.2 mg/dL (0.3-1.0); BUN - UREA NITROGEN 16 mg/dL (7-25); CALCIUM SERUM 8.8 mg/dL (8.6-10.3); CARBON DIOXIDE 22.4 mEq/L (21.0-31.0); CHLORIDE 110 mEq/L (98-107); CREATININE - SERUM 1.3 mg/dL (0.7-1.3); GFR AFRICAN-AMERICAN > 60.0 ml/min (>90); GFR NON AFRICAN-AMERICAN > 60.0 ml/min; GLUCOSE 130 mg/dL (70-105); POTASSIUM SERUM 3.6 mEq/L (3.5-5.1); SGOT 13 U/L (13-39); SGPT/ALT 12 U/L (7-52); SODIUM SERUM 140 mEq/L (136-145); TOTAL PROTEIN,SERUM 6.9 gm/dL (6.0-8.3)
[2017-12-12 19:10] LABS: INR 0.95 (0.5-1.4); PROTHROMBIN TIME (TEST) 9.9 SECONDS (9.5-11.5)
--- NOTE | 2017-12-13 09:10 | Diagnostic Imaging Report ---
Portable chest x-ray History: Pain Allowing for portable technique the heart size is normal. No focal pulmonary parenchymal processes. No hilar or mediastinal abnormalities. Impression: No acute abnormalities.
== END 2017-12-12 19:23 | disposition home or self-care (01) ==
LOC: ER 18:09
DX: R07.89 Other chest pain (principal); F10.10 Alcohol abuse, uncomplicated; I10 Essential (primary) hypertension; I25.10 Atherosclerotic heart disease of native coronary artery without angina pectoris; F32.9 Major depressive disorder, single episode, unspecified; Z88.5 Allergy status to narcotic agent; Z88.6 Allergy status to analgesic agent; Z88.8 Allergy status to other drugs, medicaments and biological substances
CPT/HCPCS: 99285; 96374; 93005; 71045; 84484; 36415; 84443; 85025; 85610; 85730; 80320; 80053; J2060

== ENCOUNTER 2017-12-14 09:53 | Emergency (ER) | payer MEDICAID ==
--- NOTE | 2017-12-14 10:37 | ED Physician Chart ---
ED Chief Complaint/HPI - Patient Information Date Seen:: 12/14/17 Time Seen:: 10:20 Chief Complaint:: Abdominal Pain History of Present Illness:: onset x one hour of intermittent, generalized, crampy abdominal pain, N/V/D x 3 which resolved upon ER arrival; pt denies trauma, H/As, S/T, neck pain, C/P, cough, SOB, A/C, fever, chills, bleeding, or urinary s/s; pt is eating and is urinating well; pt last urinated one hour [employer]AC[employer]ER Allergies:: Allergies Allergy/AdvReac Type Severity Reaction Status Date / Time acetaminophen [From [place]] Allergy Verified 10/16/17 21:42 aspirin Allergy Verified 10/16/17 21:42 carisoprodol [From [place]] Allergy Verified 10/16/17 21:42 gabapentin Allergy Verified 10/16/17 21:42 hydrocodone [From [place]] Allergy Verified 12/14/17 10:12 ibuprofen [From Motrin] Allergy Verified 10/16/17 21:42 ketorolac [From Toradol] Allergy Verified 10/16/17 21:42 meperidine [From [place]er[place]] Allergy Verified 10/16/17 21:42 promethazine Allergy Verified 10/16/17 21:42 tramadol Allergy Verified 10/16/17 21:42 Vitals:: Vital Signs - 8 hr 12/14/17 10:18 Temp 98.0 F HR 107 RR 18 BP 108/58 O2 Sat % 95 Historian:: Patient Review:: Nurse's Note Reviewed ED Review of Systems - Review of Systems General/Constitutional: No fever, No chills, No weight loss, No weakness, No diaphoresis, No edema, No loss of appetite Skin: No skin lesions, No rash, No bruising Head: No headache, No light-headedness Eyes: No loss of vision, No pain, No diplopia ENT: No earache, No nasal drainage, No sore throat, No tinnitus Neck: No neck pain, No swelling, No thyromegaly, No stiffness, No mass noted Cardio Vascular: No chest pain, No palpitations, No PND, No orthopnea, No edema Pulmonary: No SOB, No cough, No sputum, No wheezing GI: Nausea, Vomiting, Diarrhea, Pain, No melena, No hematochezia, No constipation, No hematemesis G/U: No dysuria, No frequency, No hematuria, No nacturia Musculoskeletal: No bone or joint pain, No back pain, No muscle pain Endocrine: No polyuria, No polydipsia Psychiatric: No prior psych history, No depression, No anxiety, No suicidal ideation, No homicidal ideation, No auditory hallucination, No visual hallucination Hematopoietic: No bruising, No lymphadenopathy Allergic/Immuno: No urticaria, No angioedema Neurological: No syncope, No focal symptoms, No weakness, No paresthesia, No headache, No seizure, No dizziness, No confusion, No vertigo ED Past Medical History - Past Medical History Obtainable: Yes Past Medical History: HTN, Dyslipidemia, Thyroid disorder Family History: HTN Social History: Non Smoker, No Alcohol, No Drug Use, Single Surgical History: Appendectomy, Cholecystectomy Psychiatricy History: None Medication: Reviewed Family Medical History - Family Member Mother History Unknown: Yes Ethnicity: Living Status: Hx Family Cancer: No Hx Family Coronary Artery Disease: Yes Hx Family Congestive Heart Failure: No Hx Family Hypertension: Yes Hx Family Stroke: No Hx Family Diabetes: Yes Hx Family Seizures: No Hx Family Dementia: No Hx Family AIDS: No Hx Family HIV: No Hx Family COPD: No Hx Family Hepatitis: No Hx Family Psychiatric Problems: No Hx Family Tuberculosis: No Father History Unknown: Yes Ethnicity: Living Status: Hx Family Cancer: No Hx Family Coronary Artery Disease: No Hx Family Congestive Heart Failure: No Hx Family Hypertension: No Hx Family Stroke: No Hx Family Diabetes: No Hx Family Seizures: No Hx Family Dementia: No Hx Family AIDS: No Hx Family HIV: No Hx Family COPD: No Hx Family Hepatitis: No Hx Family Psychiatric Problems: No Hx Family Tuberculosis: No ED Physical Exam - Physical Examination General/Constitutional: Awake, Well-developed, well-nourished, Alert, No distress, GCS 15, Non-toxic appearing, Ambulatory Head: Atraumatic Eyes: Lids, conjuctiva normal, PERRL, EOMI Skin: Nl inspection, No rash, No skin lesions, No ecchymosis, Well hydrated, No lymphadenopathy ENMT: External ears, nose nl, TM canals nl, Nasal exam nl, Lips, teeth, gums nl , Oropharynx nl, Tonsils nl Neck: Nontender, Full ROM w/o pain, No JVD, No nuchal rigidity, No bruit, No mass, No stridor Respiratory: Nl effort/Exclusion, Clear to Auscultation, No Wheeze/Rhonchi/Rales Cardio Vascular: RRR, No murmur, gallop, rubs, NL S1 S2, Carotid/Femoral/Distal pulses equal bilaterally GI: No tenderness/rebounding/guarding, No organomegaly, No hernia, Normal BS's, Nondistended, No mass/bruits, No McBurney tenderness, Rectum exam nl : No CVA tenderness, NL external genitalia Extremities: No tenderness or effusion, Full ROM, normal strength in all extremities, No edema, Normal digits & nails Neuro/Psych: Alert/oriented, DTR's symmetric, Normal sensory exam, Normal motor strength, Judgement/insight normal, Mood normal, Normal gait, No focal deficits Misc: Normal back, No paraspinal tenderness ED Labs/Radiology/EKG Results - Lab Results Comments:: pt deferred lab tests - Radiology Results Comments:: pt deferred X-Rays - EKG Interpretations Comments:: pt deferred EKG ED Septic Shock - . Is Septic Shock (SBP<90, OR Lactate>4 mmol\L) present?: No - <6hrs of presentation: Vital Signs: Vital Signs - 8 hr 12/14/17 10:18 Temp 98.0 F HR 107 RR 18 BP 108/58 O2 Sat % 95 ED Reassessment (Disposition) - Reassessment Reassessment:: pt deferred all tests and evaluations; pt tolerated po fluids well in ER; pt chose to sign out AMA; pt is asymptomatic upon discharge Reassessment Condition:: Improved - Diagnosis Diagnosis:: Abdominal Pain-Resolved; AGE; N/V/D; Viral Syndrome; Chest Pain-resolved; Gastroenteritis; AMA - Aftercare/Follow up Instructions Aftercare/Follow-Up Instructions:: Counseled pt regarding lab results/diagnosis & need follow up, Refer to Discharge Instructions, Counseled pt & family regarding lab results/diagnosis & need follow up - Patient Disposition Discharge/Transfer:: Against Medical Advice Condition at Disposition:: Stable, Improved (RTER prn if existing s/s reoccur and/or get worse and/or any other new s/s occur; ACIs given for all above Dx; refer to [facility] [employer]inder/GI Specialist/Credit Historian JUAN; F/U with PMD today or prn; RTER prn if concerned)
== END 2017-12-14 10:33 | disposition home or self-care (01) ==
LOC: ER 09:53
DX: R10.84 Generalized abdominal pain (principal); K52.9 Noninfective gastroenteritis and colitis, unspecified; B34.9 Viral infection, unspecified; I10 Essential (primary) hypertension; E78.5 Hyperlipidemia, unspecified; E07.9 Disorder of thyroid, unspecified; Z90.49 Acquired absence of other specified parts of digestive tract; Z88.6 Allergy status to analgesic agent; Z88.8 Allergy status to other drugs, medicaments and biological substances
CPT/HCPCS: Z7502

== ENCOUNTER 2017-12-27 19:55 | Emergency (ER) | payer MEDICAID ==
--- NOTE | 2017-12-27 20:43 | ED Physician Chart ---
ED Chief Complaint/HPI - Patient Information Date Seen:: 12/27/17 Time Seen:: 20:07 Chief Complaint:: ABD PAIN History of Present Illness:: 57 YR OLD MALE WHO ATE SOME HOME COOKED CHICKEN AND FELT SICK SHORTLY AFTER WITH ABD DISCOMFORT NAUSEA Allergies:: Allergies Allergy/AdvReac Type Severity Reaction Status Date / Time acetaminophen [From [place]] Allergy Verified 10/16/17 21:42 aspirin Allergy Verified 10/16/17 21:42 carisoprodol [From [place]] Allergy Verified 10/16/17 21:42 gabapentin Allergy Verified 10/16/17 21:42 hydrocodone [From [place]] Allergy Verified 12/14/17 10:12 ibuprofen [From Motrin] Allergy Verified 10/16/17 21:42 ketorolac [From Toradol] Allergy Verified 10/16/17 21:42 meperidine [From Demerol] Allergy Verified 10/16/17 21:42 promethazine Allergy Verified 10/16/17 21:42 tramadol Allergy Verified 10/16/17 21:42 ED Review of Systems - Review of Systems General/Constitutional: No fever, No chills, No weight loss, No weakness, No diaphoresis, No edema, No loss of appetite Skin: No skin lesions, No rash, No bruising Head: No headache, No light-headedness Eyes: No loss of vision, No pain, No diplopia ENT: No earache, No nasal drainage, No sore throat, No tinnitus Neck: No neck pain, No swelling, No thyromegaly, No stiffness, No mass noted Cardio Vascular: No chest pain, No palpitations, No PND, No orthopnea, No edema Pulmonary: No SOB, No cough, No sputum, No wheezing GI: Nausea, Pain G/U: No dysuria, No frequency, No hematuria Musculoskeletal: No bone or joint pain, No back pain, No muscle pain Endocrine: No polyuria, No polydipsia Psychiatric: No prior psych history, No depression, No anxiety, No suicidal ideation Hematopoietic: No bruising, No lymphadenopathy Allergic/Immuno: No urticaria, No angioedema Neurological: No syncope, No focal symptoms, No weakness, No paresthesia, No headache, No seizure, No dizziness, No confusion, No vertigo ED Past Medical History - Past Medical History Past Medical History: HTN, Asthma/COPD, Dyslipidemia, Other (ETOH SMOKER) Surgical History: Appendectomy, Cholecystectomy Family Medical History - Family Member Mother History Unknown: Yes Ethnicity: Living Status: Hx Family Cancer: No Hx Family Coronary Artery Disease: Yes Hx Family Congestive Heart Failure: No Hx Family Hypertension: Yes Hx Family Stroke: No Hx Family Diabetes: Yes Hx Family Seizures: No Hx Family Dementia: No Hx Family AIDS: No Hx Family HIV: No Hx Family COPD: No Hx Family Hepatitis: No Hx Family Psychiatric Problems: No Hx Family Tuberculosis: No Father History Unknown: Yes Ethnicity: Living Status: Hx Family Cancer: No Hx Family Coronary Artery Disease: No Hx Family Congestive Heart Failure: No Hx Family Hypertension: No Hx Family Stroke: No Hx Family Diabetes: No Hx Family Seizures: No Hx Family Dementia: No Hx Family AIDS: No Hx Family HIV: No Hx Family COPD: No Hx Family Hepatitis: No Hx Family Psychiatric Problems: No Hx Family Tuberculosis: No ED Physical Exam - Physical Examination General/Constitutional: Awake, Well-developed, well-nourished, Alert, No distress, GCS 15, Non-toxic appearing, Ambulatory Head: Atraumatic Eyes: Lids, conjuctiva normal, PERRL, EOMI Skin: Nl inspection, No rash, No skin lesions, No ecchymosis, Well hydrated, No lymphadenopathy ENMT: External ears, nose nl, Nasal exam nl, Lips, teeth, gums nl Neck: Nontender, Full ROM w/o pain, No JVD, No nuchal rigidity, No bruit, No mass, No stridor Respiratory: Nl effort/Exclusion, Clear to Auscultation, No Wheeze/Rhonchi/Rales Cardio Vascular: RRR, No murmur, gallop, rubs, NL S1 S2 GI: No tenderness/rebounding/guarding, No organomegaly, No hernia, Normal BS's, Nondistended, No mass/bruits, No McBurney tenderness Other GI comments:: ABD PAIN : No CVA tenderness Extremities: No tenderness or effusion, Full ROM, normal strength in all extremities, No edema, Normal digits & nails Neuro/Psych: Alert/oriented, DTR's symmetric, Normal sensory exam, Normal motor strength, Judgement/insight normal, Mood normal, Normal gait, No focal deficits Misc: Normal back, No paraspinal tenderness ED Assessment - Assessment General Assessment: ABD PAIN ED Septic Shock - . Is Septic Shock (SBP<90, OR Lactate>4 mmol\L) present?: No ED Reassessment (Disposition) - Reassessment Reassessment Condition:: Improved - Diagnosis Diagnosis:: ABD PAIN - Patient Disposition Discharge/Transfer:: Against Medical Advice (PT WAS FEELING BETTER AND WANTED TO GO HOME)
== END 2017-12-27 20:42 | disposition left against medical advice (07) ==
LOC: ER 19:55
DX: R10.9 Unspecified abdominal pain (principal); R11.0 Nausea; I10 Essential (primary) hypertension; J45.909 Unspecified asthma, uncomplicated; E78.5 Hyperlipidemia, unspecified; F17.200 Nicotine dependence, unspecified, uncomplicated; Z90.49 Acquired absence of other specified parts of digestive tract; Z88.5 Allergy status to narcotic agent; Z88.6 Allergy status to analgesic agent; Z88.8 Allergy status to other drugs, medicaments and biological substances
CPT/HCPCS: Z7502

== ENCOUNTER 2018-01-16 04:49 | Emergency (ER) | payer MEDICAID ==
--- NOTE | 2018-01-16 05:23 | ED Physician Chart ---
ED Chief Complaint/HPI - Patient Information Date Seen:: 01/16/18 Time Seen:: 04:55 Chief Complaint:: toothache History of Present Illness:: toothache took the ambulance here since he couldn't walk to the ER. states that he will walk home though. Allergies:: Allergies Allergy/AdvReac Type Severity Reaction Status Date / Time acetaminophen [From [place]] Allergy Verified 10/16/17 21:42 aspirin Allergy Verified 10/16/17 21:42 carisoprodol [From [place]] Allergy Verified 10/16/17 21:42 gabapentin Allergy Verified 10/16/17 21:42 hydrocodone [From [place]] Allergy Verified 12/14/17 10:12 ibuprofen [From Motrin] Allergy Verified 10/16/17 21:42 ketorolac [From Toradol] Allergy Verified 10/16/17 21:42 meperidine [From Demerol] Allergy Verified 10/16/17 21:42 promethazine Allergy Verified 10/16/17 21:42 tramadol Allergy Verified 10/16/17 21:42 Vitals:: Vital Signs - 8 hr 01/16/18 04:53 Temp 98.5 F HR 87 RR 18 BP 153/102 O2 Sat % 99 ED Review of Systems - Review of Systems General/Constitutional: No fever, No chills, No weight loss, No weakness, No diaphoresis, No edema, No loss of appetite Skin: No skin lesions, No rash, No bruising Head: No headache, No light-headedness Eyes: No loss of vision, No pain, No diplopia ENT: No earache, No nasal drainage, No sore throat, No tinnitus, Other ( toothache) Neck: No neck pain, No swelling, No thyromegaly, No stiffness, No mass noted Cardio Vascular: No chest pain, No palpitations, No PND, No orthopnea, No edema Pulmonary: No SOB, No cough, No sputum, No wheezing GI: No nausea, No vomiting, No diarrhea, No pain, No melena, No hematochezia, No constipation, No hematemesis G/U: No dysuria, No frequency, No hematuria Musculoskeletal: No bone or joint pain, No back pain, No muscle pain Endocrine: No polyuria, No polydipsia Psychiatric: No prior psych history, No depression, No anxiety, No suicidal ideation Hematopoietic: No bruising, No lymphadenopathy Allergic/Immuno: No urticaria, No angioedema Neurological: No syncope, No focal symptoms, No weakness, No paresthesia, No headache, No seizure, No dizziness, No confusion, No vertigo Family Medical History - Family Member Mother History Unknown: Yes Ethnicity: Living Status: Hx Family Cancer: No Hx Family Coronary Artery Disease: Yes Hx Family Congestive Heart Failure: No Hx Family Hypertension: Yes Hx Family Stroke: No Hx Family Diabetes: Yes Hx Family Seizures: No Hx Family Dementia: No Hx Family AIDS: No Hx Family HIV: No Hx Family COPD: No Hx Family Hepatitis: No Hx Family Psychiatric Problems: No Hx Family Tuberculosis: No Father History Unknown: Yes Ethnicity: Living Status: Hx Family Cancer: No Hx Family Coronary Artery Disease: No Hx Family Congestive Heart Failure: No Hx Family Hypertension: No Hx Family Stroke: No Hx Family Diabetes: No Hx Family Seizures: No Hx Family Dementia: No Hx Family AIDS: No Hx Family HIV: No Hx Family COPD: No Hx Family Hepatitis: No Hx Family Psychiatric Problems: No Hx Family Tuberculosis: No ED Physical Exam - Physical Examination General/Constitutional: Awake, Well-developed, well-nourished, Alert, No distress, GCS 15, Non-toxic appearing, Ambulatory Other Gen/Cons comments:: acts like he is on meth. moves his mouth in all directions like he is on drugs. Head: Atraumatic Skin: Nl inspection, No rash, No skin lesions, No ecchymosis, Well hydrated, No lymphadenopathy Other ENMT comments:: all teeth are extremely poor with merlos plaque everywhere and teeth shortened to the gum line. Other Neck comments:: right upper jaw mass at the top of the cervical chain which is very firm to the touch and measures 2 cm x 2 cm in size. ED Assessment - Assessment General Assessment: stable, in no distress whatsoever. ED Septic Shock - . Is Septic Shock (SBP<90, OR Lactate>4 mmol\L) present?: No - <6hrs of presentation: Vital Signs: Vital Signs - 8 hr 01/16/18 04:53 Temp 98.5 F HR 87 RR 18 BP 153/102 O2 Sat % 99 ED Reassessment (Disposition) - Reassessment Reassessment Condition:: Unchanged - Diagnosis Diagnosis:: Toothache Chronically poor dental hygiene with merlos plaque everywhere. Drug seeking behavior, asked for [place] outright. Cures report positive. Hypertension--follow up with primary care physician. - Aftercare/Follow up Instructions Aftercare/Follow-Up Instructions:: Refer to Discharge Instructions Medication Prescribed:: Penicillin and peridex. follow up with dentist. - Patient Disposition Discharge/Transfer:: Home Condition at Disposition:: Stable, Unchanged
== END 2018-01-16 05:40 | disposition home or self-care (01) ==
LOC: ER 04:49
DX: K08.89 Other specified disorders of teeth and supporting structures (principal); I10 Essential (primary) hypertension; R22.0 Localized swelling, mass and lump, head; Z76.5 Malingerer [conscious simulation]; Z88.5 Allergy status to narcotic agent; Z88.6 Allergy status to analgesic agent; Z88.8 Allergy status to other drugs, medicaments and biological substances
CPT/HCPCS: Z7502

== ENCOUNTER 2018-05-13 21:12 | Emergency (ER) | payer MEDICAID ==
--- NOTE | 2018-05-13 21:32 | ED Physician Chart ---
ED Chief Complaint/HPI - Patient Information Date Seen:: 05/13/18 Time Seen:: 21:20 Chief Complaint:: anxiety History of Present Illness:: Patient states he is anxious because he is being evicted from his mobile home. Also he ran out of his Klonopin but has appointment on the with his private physician to presumably get a new prescription for Klonopin. Allergies:: Allergies Allergy/AdvReac Type Severity Reaction Status Date / Time acetaminophen [From [place]] Allergy Verified 10/16/17 21:42 aspirin Allergy Verified 10/16/17 21:42 carisoprodol [From [place]] Allergy Verified 10/16/17 21:42 gabapentin Allergy Verified 10/16/17 21:42 hydrocodone [From [place]] Allergy Verified 12/14/17 10:12 ibuprofen [From Motrin] Allergy Verified 10/16/17 21:42 ketorolac [From Toradol] Allergy Verified 10/16/17 21:42 meperidine [From Demerol] Allergy Verified 10/16/17 21:42 promethazine Allergy Verified 10/16/17 21:42 tramadol Allergy Verified 10/16/17 21:42 Vitals:: Vital Signs - 8 hr 05/13/18 21:15 Temp 98.7 F HR 119 RR 24 BP 101/60 O2 Sat % 100 Historian:: Patient Review:: Nurse's Note Reviewed ED Review of Systems - Review of Systems General/Constitutional: No fever, No chills Skin: No skin lesions Head: No headache Eyes: No loss of vision Neck: No neck pain Cardio Vascular: No chest pain Pulmonary: No SOB GI: No nausea, No vomiting, No diarrhea G/U: No dysuria Musculoskeletal: No bone or joint pain Endocrine: No polyuria Psychiatric: Prior psych history Hematopoietic: No bruising Allergic/Immuno: No urticaria Neurological: No syncope ED Past Medical History - Past Medical History Past Medical History: Asthma/COPD, Other (bronchitis; anxiety) Social History: Smoker, Alcohol, Other (drinks alcohol occasionally) Surgical History: Appendectomy, Cholecystectomy Psychiatricy History: Other (anxiety) Medication: Reviewed Family Medical History - Family Member Mother History Unknown: Yes Ethnicity: Living Status: Hx Family Cancer: No Hx Family Coronary Artery Disease: Yes Hx Family Congestive Heart Failure: No Hx Family Hypertension: Yes Hx Family Stroke: No Hx Family Diabetes: Yes Hx Family Seizures: No Hx Family Dementia: No Hx Family AIDS: No Hx Family HIV: No Hx Family COPD: No Hx Family Hepatitis: No Hx Family Psychiatric Problems: No Hx Family Tuberculosis: No Father History Unknown: Yes Ethnicity: Living Status: Hx Family Cancer: No Hx Family Coronary Artery Disease: No Hx Family Congestive Heart Failure: No Hx Family Hypertension: No Hx Family Stroke: No Hx Family Diabetes: No Hx Family Seizures: No Hx Family Dementia: No Hx Family AIDS: No Hx Family HIV: No Hx Family COPD: No Hx Family Hepatitis: No Hx Family Psychiatric Problems: No Hx Family Tuberculosis: No ED Physical Exam - Physical Examination General/Constitutional: Awake, Well-developed, well-nourished, Alert, No distress, GCS 15, Non-toxic appearing, Ambulatory Head: Atraumatic Eyes: Lids, conjuctiva normal, PERRL, EOMI Skin: Nl inspection, No rash, No skin lesions, No ecchymosis, Well hydrated, No lymphadenopathy ENMT: External ears, nose nl, Nasal exam nl Other ENMT comments:: Poor dental hygiene Neck: Nontender, Full ROM w/o pain, No JVD, No nuchal rigidity, No bruit, No mass, No stridor Respiratory: Nl effort/Exclusion Other Respiratory comments:: Prolonged expiratory phase Cardio Vascular: RRR, No murmur, gallop, rubs, NL S1 S2 GI: No tenderness/rebounding/guarding, No organomegaly, No hernia, Normal BS's, Nondistended, No mass/bruits, No McBurney tenderness : No CVA tenderness Extremities: No tenderness or effusion, Full ROM, normal strength in all extremities, No edema, Normal digits & nails Neuro/Psych: Alert/oriented, DTR's symmetric, Normal sensory exam, Normal motor strength, Judgement/insight normal, Mood normal, Normal gait, No focal deficits Misc: Normal back, No paraspinal tenderness ED Septic Shock - . Is Septic Shock (SBP<90, OR Lactate>4 mmol\L) present?: No - <6hrs of presentation: Vital Signs: Vital Signs - 8 hr 05/13/18 21:15 Temp 98.7 F HR 119 RR 24 BP 101/60 O2 Sat % 100 ED Reassessment (Disposition) - Reassessment Reassessment Condition:: Improved - Diagnosis Diagnosis:: Anxiety - Aftercare/Follow up Instructions Aftercare/Follow-Up Instructions:: Refer to Discharge Instructions - Patient Disposition Discharge/Transfer:: Home Condition at Disposition:: Stable, Improved
== END 2018-05-13 22:55 | disposition home or self-care (01) ==
LOC: ER 21:12
DX: F41.9 Anxiety disorder, unspecified (principal); J44.9 Chronic obstructive pulmonary disease, unspecified; F17.200 Nicotine dependence, unspecified, uncomplicated; Z90.49 Acquired absence of other specified parts of digestive tract; Z88.5 Allergy status to narcotic agent; Z88.6 Allergy status to analgesic agent; Z88.8 Allergy status to other drugs, medicaments and biological substances
CPT/HCPCS: Z7502